=== PATIENT | female | born 1965 | race Caucasian/White ===

== ENCOUNTER → 2017-04-17 | Outpatient (CLI) | payer MEDICARE, OTHER ==
[~2017-04-17] MED LIST: ASPI81CH PO; ATOR40TA PO; Ativan1 MG PO; BASAGLAR K100 UNIT/1 SC; CEPH500 PO; CHOL10002 PO; CILO100 PO; CLOP75 PO; DOXY100T53 PO; ERGO50000 PO; FURO20 PO; GABA300 PO; HYDACE5 PO; Hydrocodone-Ap1 EA23 PO; IBUP600 PO; INSU100I6 SC; INSULANPEN SC; Isosorbide Mono30 MG PO; LEVEMIR FL100 UNIT/1 SC; LEVFLO500 PO; LEVOTHYROXINE PO; LEVSOD100 PO; LOSA25 PO; LOSA50 PO; LOSARTAN-HCTZ1 EAC1 PO; Lantus100 UNIT/1 SQ; Lipofen150 MG PO; MAGCHL64ER PO; METF500C PO; METO25ER PO; MULVITMIND PO; NITR.4SL SL; NOVOFINE SC; Norco 10-325 T1 EACH PO; OXYACE5T PO; OXYC5 PO; PROC10 PO; Percocet 5-3251 EACH PO; SIMV10 PO; TERB24TC TOP; TRIBENZOR 20-51 EACH PO; VALACYCLOVIR1000 MG PO; Zofran Odt4 MG PO; [UNRECOGNIZED DRUG - OTHER] PO
== END ==
LOC: LAB 11:45
DX: L30.9 Dermatitis, unspecified (principal)
CPT/HCPCS: 87102; 87106; 87220

== ENCOUNTER 2017-04-20 14:34 | Observation (INO) | payer MEDICARE, OTHER ==
[~2017-04-20] VITALS: Ht 170.2 cm; Wt 108.4 kg
[~2017-04-20 14:34] MED LIST changes: -ASPI81CH PO; -ATOR40TA PO; -BASAGLAR K100 UNIT/1 SC; -CHOL10002 PO; -CILO100 PO; -CLOP75 PO; -DOXY100T53 PO; -FURO20 PO; -GABA300 PO; -Isosorbide Mono30 MG PO; -LEVEMIR FL100 UNIT/1 SC; -LEVFLO500 PO; -LOSA25 PO; -LOSA50 PO; -LOSARTAN-HCTZ1 EAC1 PO; -METO25ER PO; -NITR.4SL SL; -OXYC5 PO
[2017-04-20 15:13] LABS: BASOPHILS ABSOLUTE AUTO 0.04 K/mm3 (0.00-0.23); BASOPHILS PERCENT AUTO 0 % (0-2); EOSINOPHILS ABSOLUTE AUTO 0.22 K/mm3 (0.00-0.68); EOSINOPHILS PERCENT AUTO 2 % (0-6); Hematocrit 39.9 % (33.0-51.0); Hemoglobin 13.6 g/dL (11.5-16.0); IMMATURE GRAN ABSOLUTE AUTO 0.07 K/mm3 (0.00-0.10); IMMATURE GRAN PERCENT AUTO 1 % (0-1); LYMPHOCYTES ABSOLUTE AUTO 2.82 K/mm3 (0.84-5.20); LYMPHOCYTES PERCENT AUTO 22 % (21-46); MONOCYTES ABSOLUTE AUTO 0.52 K/mm3 (0.16-1.47); MONOCYTES PERCENT AUTO 4 % (4-13); Mean Corpuscular HGB 31.6 pg (26.0-34.0); Mean Corpuscular HGB Conc 34.1 g/dL (31.5-36.5); Mean Corpuscular Volume 93 fL (80-100); Mean Platelet Volume 10.1 fL (9.1-12.4); NEUTROPHILS ABSOLUTE AUTO 9.37 K/mm3 (1.96-9.15); NEUTROPHILS PERCENT AUTO 72 % (41-73); Platelet Count 308 K/mm3 (150-400); RDW Coefficient Variation 13.8 % (11.7-14.2); Red Blood Cell Count 4.31 M/mm3 (3.80-5.20); White Blood Cell Count 13.04 K/mm3 (4.00-11.30)
[2017-04-20 17:35] LABS: Alanine Aminotransfer (ALT/SGP 26 U/L (12-78); Albumin, Blood 3.2 g/dL (3.4-5.0); Albumin/Globulin Ratio 0.7 (0.8-1.8); Alk Phos 104 U/L (50-136); Anion Gap 9 mmol/L (6-16); Aspartate Aminotrans (AST/SGOT 17 U/L (12-37); Bilirubin, Total 0.3 mg/dL (0.1-1.0); Blood Urea Nitrogen 25 mg/dL (8-24); Bun/Creatinine Ratio 31.2 (12.0-20.0); CO2, Blood 21 mmol/L (21-32); Calcium, Blood 9.5 mg/dL (8.5-10.1); Chloride, Blood 100 mmol/L (98-108); Globulin, Blood 4.3 g/dL (2.2-4.0); Glomerular Filtration Rate >60 (60-); Glucose, Blood 332 mg/dL (70-99); Sodium, Blood 130 mmol/L (136-145); Total Protein, Blood 7.5 g/dL (6.4-8.2)
[2017-04-20] MEDS ORDERED: LOSA25 PO (19:56)
[2017-04-20] MEDS ORDERED: ASPI81CH PO (19:56)
[2017-04-20] MEDS ORDERED: GABA300 PO (22:57)
[2017-04-21 05:12] LABS: BASOPHILS ABSOLUTE AUTO 0.03 K/mm3 (0.00-0.23); BASOPHILS PERCENT AUTO 0 % (0-2); EOSINOPHILS ABSOLUTE AUTO 0.22 K/mm3 (0.00-0.68); EOSINOPHILS PERCENT AUTO 2 % (0-6); Hematocrit 34.3 % (33.0-51.0); Hemoglobin 11.1 g/dL (11.5-16.0); IMMATURE GRAN ABSOLUTE AUTO 0.03 K/mm3 (0.00-0.10); IMMATURE GRAN PERCENT AUTO 0 % (0-1); LYMPHOCYTES ABSOLUTE AUTO 3.38 K/mm3 (0.84-5.20); LYMPHOCYTES PERCENT AUTO 37 % (21-46); MONOCYTES ABSOLUTE AUTO 0.46 K/mm3 (0.16-1.47); MONOCYTES PERCENT AUTO 5 % (4-13); Mean Corpuscular HGB 30.8 pg (26.0-34.0); Mean Corpuscular HGB Conc 32.4 g/dL (31.5-36.5); Mean Corpuscular Volume 95 fL (80-100); Mean Platelet Volume 10.2 fL (9.1-12.4); NEUTROPHILS ABSOLUTE AUTO 4.99 K/mm3 (1.96-9.15); NEUTROPHILS PERCENT AUTO 55 % (41-73); Platelet Count 249 K/mm3 (150-400); RDW Coefficient Variation 13.7 % (11.7-14.2); RDW Standard Deviation 48.4 fL (35.1-46.3); White Blood Cell Count 9.11 K/mm3 (4.00-11.30)
[2017-04-21 05:49] LABS: Anion Gap 13 mmol/L (6-16); Blood Urea Nitrogen 25 mg/dL (8-24); Bun/Creatinine Ratio 33.4 (12.0-20.0); CO2, Blood 25 mmol/L (21-32); Chloride, Blood 101 mmol/L (98-108); Creatinine, Blood 0.75 mg/dL (0.40-1.00); Glomerular Filtration Rate >60 (60-); Glucose, Blood 243 mg/dL (70-99); Potassium, Blood 4.2 mmol/L (3.5-5.5); Sodium, Blood 139 mmol/L (136-145)
[2017-04-21 06:00] LABS: Calcium, Blood 8.1 mg/dL (8.5-10.1)
[2017-04-21] MEDS ORDERED: LEVEMIR FL100 UNIT/1 SC (12:28)
[2017-04-21] MEDS ORDERED: OXYC5 PO (12:29)
[2017-07-04] MEDS ORDERED: LEVFLO500 PO (10:44)
[2017-07-28] MEDS ORDERED: BASAGLAR K100 UNIT/1 SC (15:02)
[2017-07-28] MEDS ORDERED: LOSARTAN-HCTZ1 EAC1 PO (15:05)
[2017-07-28] MEDS ORDERED: CHOL10002 PO (15:06)
[2017-07-28] MEDS ORDERED: METO25ER PO (15:07)
[2017-07-28] MEDS ORDERED: ATOR40TA PO (15:07)
[2017-07-28] MEDS ORDERED: NITR.4SL SL (15:07)
[2017-07-28] MEDS ORDERED: FURO20 PO (15:08)
[2017-07-28] MEDS ORDERED: CLOP75 PO (15:08)
[2017-07-28] MEDS ORDERED: Isosorbide Mono30 MG PO (15:10)
[2017-08-06] MEDS ORDERED: LOSA50 PO (13:53)
[2018-01-26] MEDS ORDERED: CHOL10002 PO (13:50)
[2018-01-26] MEDS ORDERED: CILO100 PO (13:50)
[2018-01-27] MEDS ORDERED: ASPI81CH PO (13:50)
== END 2017-04-21 15:06 | disposition home health service (06) ==
LOC: ER 14:34 → MEDS 14:35 → ER 20:28 → MEDS 20:28 → ENPENDDIS 04-21 11:39 → MEDS 04-21 15:06
PROVIDERS: Emergency Medicine; Internal Medicine
DX: E11.628 Type 2 diabetes mellitus with other skin complications (principal); E11.40 Type 2 diabetes mellitus with diabetic neuropathy, unspecified; L03.116 Cellulitis of left lower limb; E78.5 Hyperlipidemia, unspecified; I10 Essential (primary) hypertension; E03.9 Hypothyroidism, unspecified; E66.01 Morbid (severe) obesity due to excess calories; F17.200 Nicotine dependence, unspecified, uncomplicated; Z68.41 Body mass index [BMI] 40.0-44.9, adult; Z79.899 Other long term (current) drug therapy; Z79.4 Long term (current) use of insulin; Z79.82 Long term (current) use of aspirin; Z85.3 Personal history of malignant neoplasm of breast; Z90.13 Acquired absence of bilateral breasts and nipples; Z90.49 Acquired absence of other specified parts of digestive tract; Z98.890 Other specified postprocedural states
CPT/HCPCS: 36415; 73630; 80048; 80053; 82947; 83605; 84145; 85025; 85651; 86140; 87040; 96365; 96375; 96376; 99285; G0378; J1170; J1650; J1815; J2405; J2543; J3370; J7030; J7050

== ENCOUNTER → 2017-06-04 | Outpatient (CLI) | payer MEDICARE, OTHER ==
[~2017-06-04] MED LIST changes: +ASPI81CH PO; +ATOR40TA PO; +BASAGLAR K100 UNIT/1 SC; +CHOL10002 PO; +CILO100 PO; +CLOP75 PO; +DOXY100T53 PO; +FURO20 PO; +GABA300 PO; +Isosorbide Mono30 MG PO; +LEVEMIR FL100 UNIT/1 SC; +LEVFLO500 PO; +LOSA25 PO; +LOSA50 PO; +LOSARTAN-HCTZ1 EAC1 PO; +METO25ER PO; +NITR.4SL SL; +OXYC5 PO
== END | disposition home or self-care (01) ==
LOC: LAB 16:48
DX: E03.9 Hypothyroidism, unspecified (principal)
CPT/HCPCS: 84443

== ENCOUNTER 2017-06-15 20:43 | Emergency (ER) | payer MEDICARE, OTHER ==
[~2017-06-15] VITALS: Ht 170.2 cm; Wt 105.2 kg
[~2017-06-15 20:43] MED LIST changes: -ATOR40TA PO; -BASAGLAR K100 UNIT/1 SC; -CHOL10002 PO; -CILO100 PO; -CLOP75 PO; -DOXY100T53 PO; -FURO20 PO; -Isosorbide Mono30 MG PO; -LEVFLO500 PO; -LOSA50 PO; -LOSARTAN-HCTZ1 EAC1 PO; -METO25ER PO; -NITR.4SL SL
[2017-06-15 21:28] LABS: BASOPHILS ABSOLUTE AUTO 0.04 K/mm3 (0.00-0.23); BASOPHILS PERCENT AUTO 0 % (0-2); EOSINOPHILS ABSOLUTE AUTO 0.21 K/mm3 (0.00-0.68); EOSINOPHILS PERCENT AUTO 2 % (0-6); Hematocrit 40.4 % (33.0-51.0); Hemoglobin 13.3 g/dL (11.5-16.0); IMMATURE GRAN ABSOLUTE AUTO 0.02 K/mm3 (0.00-0.10); IMMATURE GRAN PERCENT AUTO 0 % (0-1); LYMPHOCYTES PERCENT AUTO 31 % (21-46); MONOCYTES ABSOLUTE AUTO 0.41 K/mm3 (0.16-1.47); MONOCYTES PERCENT AUTO 4 % (4-13); Mean Corpuscular HGB 29.8 pg (26.0-34.0); Mean Corpuscular HGB Conc 32.9 g/dL (31.5-36.5); Mean Corpuscular Volume 91 fL (80-100); NEUTROPHILS ABSOLUTE AUTO 6.31 K/mm3 (1.96-9.15); NEUTROPHILS PERCENT AUTO 62 % (41-73); Platelet Count 334 K/mm3 (150-400); RDW Coefficient Variation 14.1 % (11.7-14.2); RDW Standard Deviation 46.5 fL (35.1-46.3); Red Blood Cell Count 4.46 M/mm3 (3.80-5.20); White Blood Cell Count 10.19 K/mm3 (4.00-11.30)
[2017-06-15 21:45] LABS: Alanine Aminotransfer (ALT/SGP 22 U/L (12-78); Albumin, Blood 3.3 g/dL (3.4-5.0); Albumin/Globulin Ratio 0.7 (0.8-1.8); Alk Phos 91 U/L (50-136); Anion Gap 7 mmol/L (6-16); Aspartate Aminotrans (AST/SGOT 20 U/L (12-37); Bilirubin, Total 0.3 mg/dL (0.1-1.0); Blood Urea Nitrogen 33 mg/dL (8-24); CO2, Blood 27 mmol/L (21-32); Calcium, Blood 9.1 mg/dL (8.5-10.1); Chloride, Blood 102 mmol/L (98-108); Creatinine, Blood 0.81 mg/dL (0.40-1.00); Globulin, Blood 4.5 g/dL (2.2-4.0); Glomerular Filtration Rate >60 (60-); Glucose, Blood 295 mg/dL (70-99); Potassium, Blood 4.6 mmol/L (3.5-5.5); Sodium, Blood 136 mmol/L (136-145); Total Protein, Blood 7.8 g/dL (6.4-8.2)
[2017-06-15] MEDS ORDERED: CEPH500 PO (22:12)
[2017-06-15] MEDS ORDERED: DOXY100T53 PO (22:12)
[2017-07-04] MEDS ORDERED: LEVFLO500 PO (10:44)
[2017-07-28] MEDS ORDERED: BASAGLAR K100 UNIT/1 SC (15:02)
[2017-07-28] MEDS ORDERED: LOSARTAN-HCTZ1 EAC1 PO (15:05)
[2017-07-28] MEDS ORDERED: CHOL10002 PO (15:06)
[2017-07-28] MEDS ORDERED: ATOR40TA PO (15:07)
[2017-07-28] MEDS ORDERED: METO25ER PO (15:07)
[2017-07-28] MEDS ORDERED: NITR.4SL SL (15:07)
[2017-07-28] MEDS ORDERED: CLOP75 PO (15:08)
[2017-07-28] MEDS ORDERED: FURO20 PO (15:08)
[2017-07-28] MEDS ORDERED: Isosorbide Mono30 MG PO (15:10)
[2017-08-06] MEDS ORDERED: LOSA50 PO (13:53)
[2018-01-26] MEDS ORDERED: CILO100 PO (13:50)
[2018-01-26] MEDS ORDERED: CHOL10002 PO (13:50)
[2018-01-27] MEDS ORDERED: ASPI81CH PO (13:50)
== END 2017-06-15 22:46 | disposition home or self-care (01) ==
LOC: ER 20:43
PROVIDERS: Physician Assistant
DX: E11.621 Type 2 diabetes mellitus with foot ulcer (principal); I10 Essential (primary) hypertension; Z79.4 Long term (current) use of insulin; Z79.82 Long term (current) use of aspirin; Z79.899 Other long term (current) drug therapy; Z87.891 Personal history of nicotine dependence
CPT/HCPCS: 36415; 73630; 80053; 85025; 99284

== ENCOUNTER → 2017-06-16 | Outpatient (CLI) | payer MEDICARE, OTHER ==
[~2017-06-16] MED LIST changes: +ATOR40TA PO; +BASAGLAR K100 UNIT/1 SC; +CHOL10002 PO; +CILO100 PO; +CLOP75 PO; +DOXY100T53 PO; +FURO20 PO; +Isosorbide Mono30 MG PO; +LEVFLO500 PO; +LOSA50 PO; +LOSARTAN-HCTZ1 EAC1 PO; +METO25ER PO; +NITR.4SL SL
== END ==
LOC: LAB 14:40
DX: L02.612 Cutaneous abscess of left foot (principal)
CPT/HCPCS: 87070; 87077; 87147; 87186; 87205

== ENCOUNTER 2017-06-18 13:40 | Day surgery (SDC) | payer MEDICARE, OTHER ==
[~2017-06-18] VITALS: Ht 174 cm; Wt 108.0 kg
[~2017-06-18 13:40] MED LIST changes: -ATOR40TA PO; -BASAGLAR K100 UNIT/1 SC; -CHOL10002 PO; -CILO100 PO; -CLOP75 PO; -FURO20 PO; -Isosorbide Mono30 MG PO; -LEVFLO500 PO; -LOSA50 PO; -LOSARTAN-HCTZ1 EAC1 PO; -METO25ER PO; -NITR.4SL SL
[2017-07-04] MEDS ORDERED: LEVFLO500 PO (10:44)
[2017-07-28] MEDS ORDERED: BASAGLAR K100 UNIT/1 SC (15:02)
[2017-07-28] MEDS ORDERED: LOSARTAN-HCTZ1 EAC1 PO (15:05)
[2017-07-28] MEDS ORDERED: CHOL10002 PO (15:06)
[2017-07-28] MEDS ORDERED: NITR.4SL SL (15:07)
[2017-07-28] MEDS ORDERED: METO25ER PO (15:07)
[2017-07-28] MEDS ORDERED: ATOR40TA PO (15:07)
[2017-07-28] MEDS ORDERED: CLOP75 PO (15:08)
[2017-07-28] MEDS ORDERED: FURO20 PO (15:08)
[2017-07-28] MEDS ORDERED: Isosorbide Mono30 MG PO (15:10)
[2017-08-06] MEDS ORDERED: LOSA50 PO (13:53)
[2018-01-26] MEDS ORDERED: CILO100 PO (13:50)
[2018-01-26] MEDS ORDERED: CHOL10002 PO (13:50)
[2018-01-27] MEDS ORDERED: ASPI81CH PO (13:50)
== END 2017-06-18 16:00 | disposition home or self-care (01) ==
LOC: ATC 13:40
DX: L02.612 Cutaneous abscess of left foot (principal); E11.21 Type 2 diabetes mellitus with diabetic nephropathy; F17.210 Nicotine dependence, cigarettes, uncomplicated; Z79.84 Long term (current) use of oral hypoglycemic drugs; Z79.899 Other long term (current) drug therapy
CPT/HCPCS: 99211; J3370; J7050

== ENCOUNTER 2017-07-29 02:49 | Day surgery (SDC) | payer MEDICARE, OTHER ==
[~2017-07-29] VITALS: Ht 172.7 cm; Wt 108.0 kg
[~2017-07-29 02:49] MED LIST changes: +ATOR40TA PO; +BASAGLAR K100 UNIT/1 SC; +CHOL10002 PO; +CLOP75 PO; +FURO20 PO; +Isosorbide Mono30 MG PO; +LEVFLO500 PO; +LOSARTAN-HCTZ1 EAC1 PO; +METO25ER PO; +NITR.4SL SL
[2017-08-06] MEDS ORDERED: LOSA50 PO (13:53)
== END 2017-07-29 22:47 | disposition home or self-care (01) ==
LOC: MHTC 02:49
DX: Z53.8 Procedure and treatment not carried out for other reasons (principal); R19.7 Diarrhea, unspecified
CPT/HCPCS: 93005; 93010; J1644; J2060; J7030; J7040

== ENCOUNTER 2018-04-01 13:22 | Inpatient (IN) | payer MEDICARE, OTHER ==
[~2018-04-01] VITALS: Ht 172.7 cm; Wt 120.7 kg
[~2018-04-01 13:22] MED LIST changes: -ATOR40TA PO; -CLOP75 PO; -GABA300 PO; -LEVSOD100 PO; +LOSA50 PO; -METF500C PO; -METO25ER PO; +METO50ER PO; -NITR.4SL SL
[2018-04-01 14:06] LABS: BASOPHILS ABSOLUTE AUTO 0.04 K/mm3 (0.00-0.23); BASOPHILS PERCENT AUTO 0 % (0-2); EOSINOPHILS ABSOLUTE AUTO 0.17 K/mm3 (0.00-0.68); EOSINOPHILS PERCENT AUTO 2 % (0-6); Hematocrit 31.9 % (33.0-51.0); Hemoglobin 9.5 g/dL (11.5-16.0); IMMATURE GRAN ABSOLUTE AUTO 0.06 K/mm3 (0.00-0.10); IMMATURE GRAN PERCENT AUTO 1 % (0-1); LYMPHOCYTES ABSOLUTE AUTO 1.37 K/mm3 (0.84-5.20); LYMPHOCYTES PERCENT AUTO 13 % (21-46); MONOCYTES ABSOLUTE AUTO 0.53 K/mm3 (0.16-1.47); MONOCYTES PERCENT AUTO 5 % (4-13); Mean Corpuscular HGB 29.3 pg (26.0-34.0); Mean Corpuscular HGB Conc 29.8 g/dL (31.5-36.5); Mean Corpuscular Volume 99 fL (80-100); Mean Platelet Volume 9.6 fL (9.1-12.4); NEUTROPHILS PERCENT AUTO 79 % (41-73); Platelet Count 434 K/mm3 (150-400); RDW Coefficient Variation 16.8 % (11.7-14.2); RDW Standard Deviation 60.6 fL (35.1-46.3); Red Blood Cell Count 3.24 M/mm3 (3.80-5.20); White Blood Cell Count 10.57 K/mm3 (4.00-11.30)
[2018-04-01 14:27] LABS: International Normalized Ratio 1.01; Prothrombin Time Results 10.4 Sec (9.7-11.5)
[2018-04-01 14:28] LABS: Troponin I 0.171 ng/mL (0.000-0.040)
[2018-04-01 14:35] LABS: Albumin, Blood 2.9 g/dL (3.4-5.0); Albumin/Globulin Ratio 0.7 (0.8-1.8); Bilirubin, Total 0.2 mg/dL (0.1-1.0); Bun/Creatinine Ratio 41.7 (12.0-20.0); Calcium, Blood 8.8 mg/dL (8.5-10.1); Creatinine, Blood 1.15 mg/dL (0.40-1.00); Globulin, Blood 4.4 g/dL (2.2-4.0); Potassium, Blood 6.2 mmol/L (3.5-5.5); Total Protein, Blood 7.3 g/dL (6.4-8.2)
[2018-04-01] MEDS ORDERED: [UNRECOGNIZED DRUG - CODE] PO (17:03)
[2018-04-01] MEDS ORDERED: [UNRECOGNIZED DRUG - CODE] PO (17:06)
[2018-04-01] MEDS ORDERED: [UNRECOGNIZED DRUG - CODE] PO (17:07)
[2018-04-01 21:03] LABS: Bun/Creatinine Ratio 48.1 (12.0-20.0); Calcium, Blood 8.8 mg/dL (8.5-10.1); Creatinine, Blood 1.08 mg/dL (0.40-1.00); Potassium, Blood 5.4 mmol/L (3.5-5.5)
[2018-04-02 04:27] LABS: Anion Gap 4 mmol/L (6-16); Blood Urea Nitrogen 52 mg/dL (8-24); Bun/Creatinine Ratio 53.8 (12.0-20.0); CO2, Blood 27 mmol/L (21-32); Calcium, Blood 8.8 mg/dL (8.5-10.1); Chloride, Blood 102 mmol/L (98-108); Creatinine, Blood 0.97 mg/dL (0.40-1.00); Glomerular Filtration Rate >60 (60-); Glucose, Blood 212 mg/dL (70-99); Potassium, Blood 5.6 mmol/L (3.5-5.5); Sodium, Blood 133 mmol/L (136-145)
[2018-04-03 04:23] LABS: BASOPHILS ABSOLUTE AUTO 0.05 K/mm3 (0.00-0.23); BASOPHILS PERCENT AUTO 1 % (0-2); EOSINOPHILS ABSOLUTE AUTO 0.26 K/mm3 (0.00-0.68); EOSINOPHILS PERCENT AUTO 4 % (0-6); Hematocrit 34.1 % (33.0-51.0); Hemoglobin 10.2 g/dL (11.5-16.0); IMMATURE GRAN ABSOLUTE AUTO 0.03 K/mm3 (0.00-0.10); IMMATURE GRAN PERCENT AUTO 0 % (0-1); LYMPHOCYTES ABSOLUTE AUTO 1.34 K/mm3 (0.84-5.20); LYMPHOCYTES PERCENT AUTO 18 % (21-46); MONOCYTES PERCENT AUTO 7 % (4-13); Mean Corpuscular HGB Conc 29.9 g/dL (31.5-36.5); Mean Corpuscular Volume 97 fL (80-100); Mean Platelet Volume 9.6 fL (9.1-12.4); NEUTROPHILS ABSOLUTE AUTO 5.29 K/mm3 (1.96-9.15); NEUTROPHILS PERCENT AUTO 71 % (41-73); Platelet Count 432 K/mm3 (150-400); RDW Coefficient Variation 16.7 % (11.7-14.2); RDW Standard Deviation 58.9 fL (35.1-46.3); Red Blood Cell Count 3.52 M/mm3 (3.80-5.20); White Blood Cell Count 7.47 K/mm3 (4.00-11.30)
[2018-04-03 04:36] LABS: Bun/Creatinine Ratio 47.3 (12.0-20.0); Creatinine, Blood 1.12 mg/dL (0.40-1.00); Potassium, Blood 5.7 mmol/L (3.5-5.5)
[2018-04-04 04:45] LABS: Anion Gap 6 mmol/L (6-16); Blood Urea Nitrogen 49 mg/dL (8-24); Bun/Creatinine Ratio 50.2 (12.0-20.0); CO2, Blood 30 mmol/L (21-32); Calcium, Blood 9.3 mg/dL (8.5-10.1); Chloride, Blood 100 mmol/L (98-108); Creatinine, Blood 0.98 mg/dL (0.40-1.00); Glomerular Filtration Rate >60 (60-); Glucose, Blood 175 mg/dL (70-99); Potassium, Blood 4.7 mmol/L (3.5-5.5); Sodium, Blood 136 mmol/L (136-145)
[2018-04-05 04:41] LABS: Anion Gap 7 mmol/L (6-16); Blood Urea Nitrogen 40 mg/dL (8-24); Bun/Creatinine Ratio 44.3 (12.0-20.0); CO2, Blood 32 mmol/L (21-32); Chloride, Blood 98 mmol/L (98-108); Glomerular Filtration Rate >60 (60-); Glucose, Blood 191 mg/dL (70-99); Potassium, Blood 4.4 mmol/L (3.5-5.5); Sodium, Blood 137 mmol/L (136-145)
[2018-04-06 05:48] LABS: Anion Gap 5 mmol/L (6-16); Blood Urea Nitrogen 29 mg/dL (8-24); Bun/Creatinine Ratio 37.9 (12.0-20.0); CO2, Blood 34 mmol/L (21-32); Calcium, Blood 8.8 mg/dL (8.5-10.1); Chloride, Blood 98 mmol/L (98-108); Creatinine, Blood 0.77 mg/dL (0.40-1.00); Glomerular Filtration Rate >60 (60-); Glucose, Blood 181 mg/dL (70-99); Potassium, Blood 4.2 mmol/L (3.5-5.5); Sodium, Blood 137 mmol/L (136-145)
[2018-04-08 06:43] LABS: Anion Gap 4 mmol/L (6-16); Blood Urea Nitrogen 29 mg/dL (8-24); Bun/Creatinine Ratio 32.5 (12.0-20.0); CO2, Blood 35 mmol/L (21-32); Calcium, Blood 8.7 mg/dL (8.5-10.1); Chloride, Blood 96 mmol/L (98-108); Creatinine, Blood 0.89 mg/dL (0.40-1.00); Glomerular Filtration Rate >60 (60-); Glucose, Blood 140 mg/dL (70-99); Potassium, Blood 4.7 mmol/L (3.5-5.5); Sodium, Blood 135 mmol/L (136-145)
[2018-04-09 05:41] LABS: Anion Gap 6 mmol/L (6-16); Blood Urea Nitrogen 29 mg/dL (8-24); Bun/Creatinine Ratio 35.8 (12.0-20.0); CO2, Blood 36 mmol/L (21-32); Calcium, Blood 8.8 mg/dL (8.5-10.1); Chloride, Blood 95 mmol/L (98-108); Creatinine, Blood 0.81 mg/dL (0.40-1.00); Glomerular Filtration Rate >60 (60-); Glucose, Blood 187 mg/dL (70-99); Potassium, Blood 4.4 mmol/L (3.5-5.5); Sodium, Blood 137 mmol/L (136-145)
[2018-04-09] MEDS ORDERED: HUMALOG KW200 UNIT/1 SC (14:28)
== END 2018-04-09 14:30 | disposition home health service (06) | DRG 292 ==
LOC: ER 13:22 → PCU 16:59 → MEDS 04-06 18:25 → ENPENDDIS 04-09 10:00 → MEDS 04-09 14:30
PROVIDERS: Emergency Medicine; Internal Medicine; Physician Assistant; ADMIT Hospitalist
DX: I11.0 Hypertensive heart disease with heart failure (principal); Z68.41 Body mass index [BMI] 40.0-44.9, adult; L03.116 Cellulitis of left lower limb; E66.01 Morbid (severe) obesity due to excess calories; I50.33 Acute on chronic diastolic (congestive) heart failure; I25.10 Atherosclerotic heart disease of native coronary artery without angina pectoris; E03.9 Hypothyroidism, unspecified; E87.5 Hyperkalemia; E11.51 Type 2 diabetes mellitus with diabetic peripheral angiopathy without gangrene; E78.5 Hyperlipidemia, unspecified; Z23 Encounter for immunization; Z95.1 Presence of aortocoronary bypass graft; Z91.14 Patient's other noncompliance with medication regimen; Z79.4 Long term (current) use of insulin; Z88.1 Allergy status to other antibiotic agents; Z87.891 Personal history of nicotine dependence; Z79.84 Long term (current) use of oral hypoglycemic drugs; Z79.02 Long term (current) use of antithrombotics/antiplatelets; Z79.82 Long term (current) use of aspirin; Z79.899 Other long term (current) drug therapy
CPT/HCPCS: 36415; 71046; 80048; 80053; 82947; 83880; 84484; 85025; 85610; 87081; 90686; 93005; 93010; 93971; 94761; 94762; 96374; 97110; 97116; 97162; 97530; 99285-25; G0008; J0690; J1650; J1940

== ENCOUNTER 2018-05-05 10:41 | Inpatient (IN) | payer MEDICARE, OTHER ==
[~2018-05-05] VITALS: Ht 172.7 cm; Wt 111.6 kg
[~2018-05-05 10:41] MED LIST changes: +HUMALOG KW200 UNIT/1 SC; +[UNRECOGNIZED DRUG - CODE] PO; +[UNRECOGNIZED DRUG - CODE] PO; +[UNRECOGNIZED DRUG - CODE] PO
[2018-05-05 11:13] LABS: BASOPHILS ABSOLUTE AUTO 0.04 K/mm3 (0.00-0.23); BASOPHILS PERCENT AUTO 0 % (0-2); EOSINOPHILS ABSOLUTE AUTO 0.11 K/mm3 (0.00-0.68); EOSINOPHILS PERCENT AUTO 1 % (0-6); Hematocrit 34.7 % (33.0-51.0); Hemoglobin 10.2 g/dL (11.5-16.0); IMMATURE GRAN ABSOLUTE AUTO 0.03 K/mm3 (0.00-0.10); IMMATURE GRAN PERCENT AUTO 0 % (0-1); LYMPHOCYTES ABSOLUTE AUTO 1.46 K/mm3 (0.84-5.20); LYMPHOCYTES PERCENT AUTO 15 % (21-46); MONOCYTES ABSOLUTE AUTO 0.48 K/mm3 (0.16-1.47); MONOCYTES PERCENT AUTO 5 % (4-13); Mean Corpuscular HGB Conc 29.4 g/dL (31.5-36.5); Mean Corpuscular Volume 92 fL (80-100); Mean Platelet Volume 9.8 fL (9.1-12.4); NEUTROPHILS ABSOLUTE AUTO 7.95 K/mm3 (1.96-9.15); NEUTROPHILS PERCENT AUTO 79 % (41-73); NRBC ABSOLUTE 0.02 K/mm3 (0.00-0.02); NRBC Auto 0.2 /100 WBC (0.0-0.2); Platelet Count 397 K/mm3 (150-400); RDW Standard Deviation 53.5 fL (35.1-46.3); Red Blood Cell Count 3.78 M/mm3 (3.80-5.20); White Blood Cell Count 10.07 K/mm3 (4.00-11.30)
[2018-05-05 11:22] LABS: PCO2 Arterial 43.5 mmHg (35-45); PO2 Arterial 133 mmHg (80-100); pH Blood Arterial 7.42 (7.35-7.45)
[2018-05-05 11:37] LABS: Alanine Aminotransfer (ALT/SGP 12 U/L (12-78); Albumin, Blood 3.3 g/dL (3.4-5.0); Albumin/Globulin Ratio 0.7 (0.8-1.8); Alk Phos 103 U/L (50-136); Anion Gap 8 mmol/L (6-16); Aspartate Aminotrans (AST/SGOT 15 U/L (12-37); Bilirubin, Total 0.6 mg/dL (0.1-1.0); Blood Urea Nitrogen 42 mg/dL (8-24); Bun/Creatinine Ratio 48.3 (12.0-20.0); CO2, Blood 27 mmol/L (21-32); Calcium, Blood 9.6 mg/dL (8.5-10.1); Chloride, Blood 101 mmol/L (98-108); Creatinine, Blood 0.87 mg/dL (0.40-1.00); Globulin, Blood 4.7 g/dL (2.2-4.0); Glomerular Filtration Rate >60 (60-); Glucose, Blood 310 mg/dL (70-99); Potassium, Blood 5.5 mmol/L (3.5-5.5); Sodium, Blood 136 mmol/L (136-145); Troponin I 0.056 ng/mL (0.000-0.040)
[2018-05-05] MEDS ORDERED: **INCOMPLETE MED REC (13:11)
[2018-05-05] MEDS ORDERED: ASPI81CH PO (13:41)
[2018-05-05] MEDS ORDERED: ATOR40TA PO (13:42)
[2018-05-05] MEDS ORDERED: Cilostazol50 MG PO (13:43)
[2018-05-05] MEDS ORDERED: CLOP75 PO (13:44)
[2018-05-05] MEDS ORDERED: GABA300 PO (13:45)
[2018-05-05] MEDS ORDERED: LEVSOD100 PO (13:46)
[2018-05-05] MEDS ORDERED: LOSARTAN POTAS100 MG PO (13:50)
[2018-05-05] MEDS ORDERED: METF500C PO (13:51)
[2018-05-05] MEDS ORDERED: NITR.4SL SL (13:52)
[2018-05-05] MEDS ORDERED: TORSE20 PO (13:53)
[2018-05-05] MEDS ORDERED: Prinivil10 MG PO (14:24)
[2018-05-05] MEDS ORDERED: METO50 PO (14:30)
[2018-05-05] MEDS ORDERED: INSULANPEN SC (14:37)
[2018-05-05] MEDS ORDERED: Mupirocin22 GM TOP (14:38)
[2018-05-05] MEDS ORDERED: HYDR1TAB94 PO (16:57)
--- NOTE | 2018-05-05 17:35 | NUR ---
PT ADMITTED TO ICU14 VIA STRETCHER ON BIPAP. PT SETTINGS DEC PER RT NOTED. PT DENIES PAIN EXCEPT OF FEET, SEE EMAR. PT SATS, VS, RR, NOTED AND IMPROVING AT TIME OF ADMIT. WOUND PHOTOS TAKEN. PT HAS R WRIST 20G IV. WILL FOLLOW.
--- NOTE | 2018-05-05 19:28 | NUR ---
1830 PT WAS BLADDER SCANNED AFTER ARRIVAL TO ICU AND FOUND TO BE EMPTY. PT HAS BEEN WIMPERING AND WANTING BIPAP OFF BUT PT WAS OFFERED BED PA AND WAS ONLY ON FOR 10-15 SECONDS AND THEN REQUESTED OFF. PT VS NOTED. PT REMAINS ON BIPAP AT THIS TIME DUE TO VERY DEMINISHED LUNGS AND QUITE ELEVATED BNP, WILL REPORT TO NOC SHIFT.
[2018-05-05 20:15] LABS: Source, Urine Catheter
[2018-05-05 20:17] LABS: Bilirubin, Urine Neg (Neg); Blood, Urine Neg (Neg); Glucose Qualitative, Urine Neg (Neg); Ketones, Urine Neg (Neg); Leukocyte Esterase, Urine Neg (Neg); Nitrite, Urine Neg (Neg); Protein, Urine 3+ (Neg); Urobilinogen, Urine NORM (Normal)
[2018-05-05 20:38] LABS: Appearance, Urine Clear (Clear); Color, Urine Yellow (P-Yellow)
[2018-05-05 20:40] LABS: Amorphous Light (0-Heavy); Bacteria Rare /hpf; Red Blood Cells, Urine Not Seen /hpf (0-2); Squamous Epithelial Cells Rare /hpf (Few); White Blood Cells, Urine Rare /hpf (0-5)
--- NOTE | 2018-05-05 21:39 | NUR ---
START OF SHIFT: PT C/O LOWER ABD PAIN AT START OF SHIFT. DAY REPORT STATING THAT PT C/O HAVING URGE TO VOID BUT COULDN'T X2. VSS. SANCHEZ CATH PLACED WITH APPRX 1200cc OUT THUS FAR. PT STATED RELIEF SHORTLY AFTER INSERTION. PT REQUESTED AND GIVEN SNACK. PT CURRENTLY 98% SATS ON N/C. PT REQUESTED BREATH OFF BIPAP UNTIL READY FOR SLEEP. WILL CONTINUE TO MONITOR.
--- NOTE | 2018-05-05 22:12 | NUR ---
PT REFUSED BIPAP: THIS RN WENT TO BEDSIDE AT [address] BIP[address] BIPAP ON BUT PT BECAME ANXIOUS AND WANTED IT OFF. PT CURRENTLY REMAINING ON N/C 2 L WITH SATS 96-99%. WILL CONTINUE TO MONITOR.
--- NOTE | 2018-05-06 00:45 | NUR ---
DESAT: PT DESAT TO 79%. UPON ENTERING ROOM PT SLEEPING WITH POSSIBLE APNEA. BIPAP PLACED. SATS UP TO 97%.
[2018-05-06 04:00] LABS: Bun/Creatinine Ratio 33.8 (12.0-20.0); Calcium, Blood 8.9 mg/dL (8.5-10.1); Creatinine, Blood 1.33 mg/dL (0.40-1.00); Potassium, Blood 4.9 mmol/L (3.5-5.5)
--- NOTE | 2018-05-06 04:04 | NUR ---
TONIA RN TO BEDSIDE FOR PT DESAT TO 83% WHILE ON N/C 2L; PT WITH APNEA. PT PLACED BACK ON BIPAP. CURRENT SATS 96%. WILL CONTINUE TO MONITOR.
--- NOTE | 2018-05-06 08:50 | NUR ---
BEGINNING OF SHIFT Assumed care a 0700. Report recieved from Senia KHAN. Pt on BiPAP at time of report, tolerating well. Pt taken off BiPAP. Required 2 LPM NC to maintain O2 sats above 90%. Will continue to reassess. Pt is currently medical floor status. Does not require continuous heart monitoring or telemetry per Dr Luis. Per Dr Luis, Dr Rea will be providing care for the pt's wound. Bed in lowest position. Call light in reach. Pt denies need at this time.
--- NOTE | 2018-05-06 10:12 | NUR ---
DR José MCGUIRE IN TO SEE PT Dr José Mcguire in to see pt. States plan for nonsurgical management at this time. Previous dressing applied. Wet to dry dressing applied. This RN stated bactroban was being used for dressing changes. He stated this was not necessary. Dressing to be changed daily.
--- NOTE | 2018-05-06 17:35 | NUR ---
SHIFT SUMMARY Dr Rea and WAQAR Montemayor in to see pt. Dressing removed. Redressed by Joellen KHAN. No additional changes. No episodes of desaturation noted. Will continue to closely monitor until care handoff and bedside report with oncoming RN.
[2018-05-07 04:37] LABS: Bun/Creatinine Ratio 40.2 (12.0-20.0); Calcium, Blood 8.8 mg/dL (8.5-10.1); Creatinine, Blood 1.27 mg/dL (0.40-1.00); Potassium, Blood 5.1 mmol/L (3.5-5.5)
--- NOTE | 2018-05-07 06:46 | NUR ---
PT AWAKENS ON OWN THIS AM. PT PLEASANT, A+O. TURNED ON TV. STILL HAS N/C ON 2L. PT SMILING AND STATES THAT SHE FEELS BETTER AFTER SLEEPING ALL NIGHT WITH OXYGEN. WILL PASS ON DAY RN.
--- NOTE | 2018-05-07 07:30 | NUR ---
ASSUMED CARE OF PATIENT; SEE ASSESSMENT CHARTING FOR DETAILS. PATIENT SLEEPING BUT ROUSES EASILY AND IS ORIENTED AND COOPERATIVE; NO ACUTE DISCOMFORT; A LITTLE RESTLESS DURING SLEEP BUT HAS NEUROPATHY DISCOMFORT. C/O HUNGER; CBG CHECKED AND WAS 133; NO COVERAGE INDICATED. LUNGS DECREASED T/O; NO WHEEZES NOTED BUT SOME RALES HEARD IN RLL. RECEIVING 40MG IV LASIX BID FOR CHF SX'S. MONITOR REMAINS NSR WITH GOOD RATE AND VSS.
--- NOTE | 2018-05-07 07:45 | NUR ---
DR. HARRELL HERE; PLACED PATIENT ON 1200ML FLUID RESTRICTION; REMAINS ON ADA DIET; GOOD APPETITE. WILL GIVE ICE CHIPS TO HELP REDUCE FLUID INTAKE.
--- NOTE | 2018-05-07 09:30 | NUR ---
DR. AIDE MCGUIRE, GENERAL SURGEON, HERE TO ASSESS EXTREM. WOUND AND STERNAL WOUND; REPACKED AND CLEANED BOTH SITES AND SECURED TIHE TAPE. TO BE CHANGED DAILY (WET TO DRY/DRESSING). PUS CAME OUT OF STERNAL (PROXIMAL AREA) WOUND EARLIER FOR RN AND NOW FOR MD; REMAINS ON IVAB TX.
--- NOTE | 2018-05-07 11:45 | NUR ---
CBG 183; COVERED PER SLIDING SCALE COVERAGLE.
--- NOTE | 2018-05-07 16:35 | NUR ---
CBG 188; 3UNITS NOVOLOG PER SS COVERAGE.
--- NOTE | 2018-05-07 18:49 | NUR ---
SUMMARY: SLEEPING MORE THIS AFTERNOON. UP IN CHAIR SEVERAL TIMES T/O DAY WITH SBA. BATHED AND LINEN CHANGE EARLY AFTERNOON. NEW IV STARTE IN L WRIST REGION D/T SOME TENERNESS TO R WRIST SITE; NO SWELLING NOTED, HOWEVER AND BLOOD RETURN; WILL MAINTAIN FOR NOW. REMAINS ON FLUID RESTRICTION OF 1200ML; ICE CHIPS TO HELP CONTROL THIRST. GOOD U.O T/O SHIFT D/T DIURETIC TX. REMAINS ON 2L/NC; SOBOE.
--- NOTE | 2018-05-07 20:40 | NUR ---
ASSUMED CARE REPORT RECIEVED. PT IS LAYING IN BED RESTING QUIETLY. PT AROUSES TO VERBAL STIMULI. PT IS ALERT AND ORIENTED WHEN AWAKE. PT SLOW TO RESPOND TO SOME QUESTIONS AND MOANS WITH ANSWERS. PT STATES 8/10 LEG PAIN. PT MED PER EMAR. VITAL SIGNS STABLE. IV'S SALINE LOCKED. PT REPOSITIONS SELF IN BED FOR COMFORT. MIDLINE INCISION TO CHEST WITH DRESSING INTACT. WOUND TO LEFT INNER KNEE AREA WITH DRESSING INTACT. PT ON 2L O2 NC. WILL CONTINUE TO MONITOR.
[2018-05-08 04:42] LABS: Bun/Creatinine Ratio 46.8 (12.0-20.0); Calcium, Blood 9.1 mg/dL (8.5-10.1); Creatinine, Blood 1.09 mg/dL (0.40-1.00); Potassium, Blood 5.3 mmol/L (3.5-5.5)
--- NOTE | 2018-05-08 05:53 | NUR ---
SHIFT SUMMARY NO ACUTE CHANGES. PT HAS SLEPT OFF AND ON THROUGHOUT THE NIGHT. WHEN AWAKE PT IS ALERT AND ORIENTED AND MOANS WHEN TALKING. PT MED FOR PAIN ONCE AT BEGINNING OF THE SHIFT, AND HAS SINCE DENIED PAIN. PT HAS REPOSITIONED SELF IN BED INDEPENDENTLY. PT ON 2L O2 NC, VITAL SIGNS STABLE. IV SALINE LOCKED. SANCHEZ IN PLACE WITH GOOD URINE OUTPUT. WOUNDS REMAIN UNCHANGED. WILL CONTINUE TO MONITOR AND REPORT OFF TO ONCOMING RN.
--- NOTE | 2018-05-08 07:30 | NUR ---
ASSUMED CARE OF PATIENT; SEE ASSESSMENT CHARTING FOR DETAILS. PATIENT SLEEPING; ROUSES TO VERBAL STIMULI BUT BACK TO SLEEP WHEN NOT DISTURBED. OXYGEN AT 2L/MIN VIA NC; BIOX 97%. LUNGS DIMINISHED T/O. DENIES ACUTE DISCOMFORT AT THIS TIME. SANCHEZ DRAINING MOD. AMOUNTS OF LT. YELLOW URINE. MONITOR OFF; VSS; AFEBRILE. DR. HARRELL, HOSPITALIST HERE, SEE ORDERS.
--- NOTE | 2018-05-08 12:00 | NUR ---
APPETITE FAIR; NO GI UPSET. IV ANTIBIOTIC TX. DC'D AND PATIENT TAKING ORAL ANTIBIOTICS.
--- NOTE | 2018-05-08 14:40 | NUR ---
TO TRANSFER TO [facility]. FLOOR, ROOM 308. PATIENT JUST LAID BACK DOWN AFTER DANGLING FOR ABOUT 45/MIN. CBG'S REQUIRING 3-5UNITS OF INSULIN COVERAGE.
--- NOTE | 2018-05-08 14:45 | NUR ---
REPORT TO ERIN ROBERTSON.
--- NOTE | 2018-05-08 15:20 | NUR ---
TRANSFERRED TO MEDICAL FLOOR, ROOM 308, VIA W/C WITH OXYGEN AT 2L/MIN. PATIENT TOLERATED WELL. CHART, MEDS. AND PERSONAL BELONGINGS (INCLUDING CANE) WITH PATIENT.
--- NOTE | 2018-05-08 16:09 | NUR ---
TRANSFER NOTE RECEIVED REPORT FORM JOSE MANUEL COLES RN IN ICU. PT TO ROOM VIA WHEELCHAIR AT 1530. 1 PERSON ASSIST TO TRANSFER TO BED. PT ORIENTED TO ROOM AND CALL LIGHT. BED IN LOW, BED ALARM ON, CALL LIGHT WITHIN REACH. PT A&OX3. CALM AND COOPERATIVE WITH CARE. PT SOB WITH EXERTION, ON 1L O2 VIA NC, >90%, LS DIM IN BASES. PT REPORTS NUMB/TING IN BLE AND PAIN 05/30. SANCHEZ CATHETER IN PLACE, PATENT AND DRAINING. PT DENIES N/V. ELEVATED BP NOTED. OTHER VSS. WILL CONTINUE TO MONITOR.
--- NOTE | 2018-05-09 04:56 | NUR ---
SUMMARY: A/OX3, USES CALL LIGHT AND IS SBA OOB. SHE MOANS OFTEN BUT DENIES NEEDS UPON QUESTIONING. SHE'S SOB W/EXERTION ON 1L O2 W/SPO2 WNL AND LS DIM IN BASES. LEGS REMAIN PAINFUL FROM NEUROPATHY W/ NORCO RECIEVED FOR TOLERABLE CONTROL. LLE CELLULITIS W/DRY FLAKEY SKIN PERSISTS. PT HAS A HEALING SX INCISION SITE AT THE MIDLINE OF HER CHEST W/DX REMAINING C/D/I AND SCANT AMT PURULENT DRAINAGED NOTED TO OPEN AREA, OTHERWISE SCABBING OBSERVED. DX TO HER L.INNER KNEE IS ALSO C/D/I. SANCHEZ PATENT AND DRAINING. NO ACUTE CHANGES, VSS AND AFEBRIE. WILL MONITOR AND REPORT TO DAY RN.
[2018-05-09 05:56] LABS: Anion Gap 4 mmol/L (6-16); Blood Urea Nitrogen 45 mg/dL (8-24); CO2, Blood 34 mmol/L (21-32); Calcium, Blood 9.1 mg/dL (8.5-10.1); Chloride, Blood 101 mmol/L (98-108); Creatinine, Blood 0.87 mg/dL (0.40-1.00); Glomerular Filtration Rate >60 (60-); Glucose, Blood 163 mg/dL (70-99); Magnesium, Blood 1.8 mg/dL (1.6-2.4); Potassium, Blood 4.9 mmol/L (3.5-5.5); Sodium, Blood 139 mmol/L (136-145)
[2018-05-09] MEDS ORDERED: CEPH500 PO (13:47)
[2018-05-09] MEDS ORDERED: LOSA50 PO (13:48)
[2018-05-09] MEDS ORDERED: TORSE20 PO (13:49)
[2018-05-09] MEDS ORDERED: LISI5 PO (13:53)
[2018-05-09] MEDS ORDERED: HYDR1TAB94 PO (13:53)
--- NOTE | 2018-05-09 16:13 | NUR ---
DISCHARGE SUMMARY PT A&0X3. PT ANXIOUS AT TIME, COOPERATIVE WITH CARE. PT RESTING IN BED DURING SHIFT. 1 PERSON ASSIST WITH WALKER. PT DENIES PAIN AND N/V DURING SHIFT. PT SOB WITH EXERTION, ON 1-2 L 02 VIA NC, HOME O2 EVAL COMPLETED, PT DISCHARGING HOME ON 2L O2 VIA NC. PT RECEIVED IV LASIX THIS AM, TRANSITIONING TO TORESMIDE AT HOME. PT RECEIVE PO ANTIBIOTICS, WILL COMPLETE COURSE AT HOME. LLE DRESSING CHANGED PRIOR TO DISCHARGE, NEW PICTURE IN CHART. PT BP CONTINUE TO BE ELEVATED DURING SHIFT, DR HARRELL NOTIFIED, NEW ORDERS TO INCREASE LOSARTAN TO 100MG, CALLED INTO [facility] AND NEW ORDERS FOR LOSARTAN 50MG PO NOW, ADMINISTERED PRIOR TO DISCHARGE. PT INSISTANT ON LEAVING WITH BP ELEVATED. OTHER VSS. NO OTHER ACUTE CHANGES NOTE DURING SHIFT. PT AND FAMILY/FRIEND EDUCATED ON DSICHARGE INSTRUCTIONS, MEDICATIONS, AND FOLLOWING UP WITH PCP APPOINTMENTS AND PRESCRIPTIONS. PT EDUCATED ON FLUID RESTRICTION, OXYGEN USE AT HOME AND HOW TO TAKE BP AT HOME AND FOLLOW MEDICATIONS PARAMETERS. PT EDUCATED ON FOLLOWING UP WITH [facility] FOR DRESSING CHANGES. PT EDUCATED ON LAB DRAW FOR BMP IN 1 WEEK. PRESCRIPTIONS FAXED [facility] AND THE CORRECTIONS FOR LOSARTAN CALLED IN TO [facility] PER PT REQUEST. [facility] PROVIDE PT WITH OXYGEN FOR TRANSPORTATION HOME. PT LEFT ROOM VIA WHEELCHAIR AT 1555. PT STABLE UPON DISCHARGE.
== END 2018-05-09 16:05 | disposition home or self-care (01) | DRG 291 ==
LOC: ER 10:41 → ICUW 12:41 → MEDS 05-08 15:19 → ENPENDDIS 05-09 09:57 → MEDS 05-09 16:05
PROVIDERS: Emergency Medicine; ADMIT Internal Medicine
PROC: 5A09357 Assistance with Respiratory Ventilation, Less than 24 Consecutive Hours, Continuous Positive Airway Pressure (ICD-10-PCS; principal; 2018-05-05)
PROC: 3E02340 Introduction of Influenza Vaccine into Muscle, Percutaneous Approach (ICD-10-PCS; 2018-05-05)
DX: I11.0 Hypertensive heart disease with heart failure (principal); J96.01 Acute respiratory failure with hypoxia; L03.116 Cellulitis of left lower limb; L02.416 Cutaneous abscess of left lower limb; T81.41XA Infection following a procedure, superficial incisional surgical site, initial encounter; Z87.891 Personal history of nicotine dependence; I50.33 Acute on chronic diastolic (congestive) heart failure; Z95.0 Presence of cardiac pacemaker; Z23 Encounter for immunization; I25.10 Atherosclerotic heart disease of native coronary artery without angina pectoris; Z95.1 Presence of aortocoronary bypass graft; E78.5 Hyperlipidemia, unspecified; E11.51 Type 2 diabetes mellitus with diabetic peripheral angiopathy without gangrene; Z90.13 Acquired absence of bilateral breasts and nipples; Z79.82 Long term (current) use of aspirin; Z79.4 Long term (current) use of insulin; Z91.19 Patient's noncompliance with other medical treatment and regimen; E03.9 Hypothyroidism, unspecified
CPT/HCPCS: 36415; 36600; 51703; 71045; 80048; 80053; 81001; 82803; 82947; 83735; 83880; 84484; 85025; 87081; 90686; 93005; 93010; 94660; 94761; 96374; 96375; 97161; 97530; 99285-25; G0008; J0690; J1650; J1940; J2405; J3010; J7050

== ENCOUNTER 2018-06-07 04:26 | Emergency (ER) | payer MEDICARE, OTHER ==
[~2018-06-07] VITALS: Ht 172.7 cm; Wt 104.7 kg
[~2018-06-07 04:26] MED LIST changes: +**INCOMPLETE MED REC; +ATOR40TA PO; +CLOP75 PO; +Cilostazol50 MG PO; +GABA300 PO; +HYDR1TAB94 PO; +LEVSOD100 PO; +LISI5 PO; +LOSARTAN POTAS100 MG PO; +METF500C PO; +METO50 PO; +Mupirocin22 GM TOP; +NITR.4SL SL; +Prinivil10 MG PO; +TORSE20 PO
[2018-06-07] MEDS ORDERED: CEPH500 PO (04:49)
[2018-06-07] MEDS ORDERED: GABA600 PO (04:52)
[2018-06-07] MEDS ORDERED: METF500C PO (04:53)
[2018-06-07] MEDS ORDERED: Prinivil10 MG PO (04:55)
[2018-06-07 05:40] LABS: BASOPHILS ABSOLUTE AUTO 0.02 K/mm3 (0.00-0.23); BASOPHILS PERCENT AUTO 0 % (0-2); EOSINOPHILS ABSOLUTE AUTO 0.18 K/mm3 (0.00-0.68); EOSINOPHILS PERCENT AUTO 3 % (0-6); Hematocrit 33.3 % (33.0-51.0); Hemoglobin 9.7 g/dL (11.5-16.0); IMMATURE GRAN ABSOLUTE AUTO 0.01 K/mm3 (0.00-0.10); IMMATURE GRAN PERCENT AUTO 0 % (0-1); LYMPHOCYTES ABSOLUTE AUTO 1.56 K/mm3 (0.84-5.20); LYMPHOCYTES PERCENT AUTO 22 % (21-46); MONOCYTES ABSOLUTE AUTO 0.38 K/mm3 (0.16-1.47); MONOCYTES PERCENT AUTO 5 % (4-13); Mean Corpuscular HGB 25.7 pg (26.0-34.0); Mean Corpuscular HGB Conc 29.1 g/dL (31.5-36.5); Mean Corpuscular Volume 88 fL (80-100); Mean Platelet Volume 10.2 fL (9.1-12.4); NEUTROPHILS ABSOLUTE AUTO 4.92 K/mm3 (1.96-9.15); NEUTROPHILS PERCENT AUTO 70 % (41-73); Platelet Count 223 K/mm3 (150-400); RDW Coefficient Variation 17.1 % (11.7-14.2); RDW Standard Deviation 55.3 fL (35.1-46.3); Red Blood Cell Count 3.77 M/mm3 (3.80-5.20); White Blood Cell Count 7.07 K/mm3 (4.00-11.30)
[2018-06-07 05:58] LABS: Alanine Aminotransfer (ALT/SGP 17 U/L (12-78); Albumin, Blood 3.4 g/dL (3.4-5.0); Albumin/Globulin Ratio 0.8 (0.8-1.8); Alk Phos 100 U/L (50-136); Anion Gap 10 mmol/L (6-16); Aspartate Aminotrans (AST/SGOT 19 U/L (12-37); Bilirubin, Total 0.4 mg/dL (0.1-1.0); Blood Urea Nitrogen 43 mg/dL (8-24); Bun/Creatinine Ratio 46.9 (12.0-20.0); CO2, Blood 27 mmol/L (21-32); Calcium, Blood 9.3 mg/dL (8.5-10.1); Chloride, Blood 102 mmol/L (98-108); Creatinine, Blood 0.92 mg/dL (0.40-1.00); Globulin, Blood 4.5 g/dL (2.2-4.0); Glomerular Filtration Rate >60 (60-); Glucose, Blood 345 mg/dL (70-99); Potassium, Blood 4.4 mmol/L (3.5-5.5); Sodium, Blood 139 mmol/L (136-145); Total Protein, Blood 7.9 g/dL (6.4-8.2)
== END 2018-06-07 07:23 | disposition home or self-care (01) ==
LOC: ER 04:26
PROVIDERS: Emergency Medicine
DX: E11.42 Type 2 diabetes mellitus with diabetic polyneuropathy (principal); Z88.1 Allergy status to other antibiotic agents; Z79.899 Other long term (current) drug therapy; Z79.82 Long term (current) use of aspirin; Z79.4 Long term (current) use of insulin; I11.0 Hypertensive heart disease with heart failure; I50.9 Heart failure, unspecified; Z87.891 Personal history of nicotine dependence
CPT/HCPCS: 36415; 80053; 83605; 85025; 87070; 87075; 87077; 87186; 87205; 96374; 96375; 99283-25; A9270-GY; J1170; J2405

== ENCOUNTER 2018-08-01 13:57 | Emergency (ER) | payer MEDICARE, OTHER ==
[~2018-08-01] VITALS: Ht 175.3 cm; Wt 97.5 kg
[~2018-08-01 13:57] MED LIST changes: +GABA600 PO
[2018-08-01 14:43] LABS: BASOPHILS ABSOLUTE AUTO 0.02 K/mm3 (0.00-0.23); BASOPHILS PERCENT AUTO 0 % (0-2); EOSINOPHILS ABSOLUTE AUTO 0.15 K/mm3 (0.00-0.68); EOSINOPHILS PERCENT AUTO 2 % (0-6); Hematocrit 35.4 % (33.0-51.0); Hemoglobin 10.7 g/dL (11.5-16.0); IMMATURE GRAN ABSOLUTE AUTO 0.02 K/mm3 (0.00-0.10); IMMATURE GRAN PERCENT AUTO 0 % (0-1); LYMPHOCYTES ABSOLUTE AUTO 1.25 K/mm3 (0.84-5.20); LYMPHOCYTES PERCENT AUTO 16 % (21-46); MONOCYTES ABSOLUTE AUTO 0.33 K/mm3 (0.16-1.47); MONOCYTES PERCENT AUTO 4 % (4-13); Mean Corpuscular HGB Conc 30.2 g/dL (31.5-36.5); Mean Corpuscular Volume 89 fL (80-100); Mean Platelet Volume 9.6 fL (9.1-12.4); NEUTROPHILS ABSOLUTE AUTO 6.11 K/mm3 (1.96-9.15); NEUTROPHILS PERCENT AUTO 77 % (41-73); Platelet Count 386 K/mm3 (150-400); RDW Coefficient Variation 19.1 % (11.7-14.2); RDW Standard Deviation 62.6 fL (35.1-46.3); Red Blood Cell Count 3.96 M/mm3 (3.80-5.20); White Blood Cell Count 7.88 K/mm3 (4.00-11.30)
[2018-08-01 15:14] LABS: Alanine Aminotransfer (ALT/SGP 17 U/L (12-78); Albumin, Blood 3.2 g/dL (3.4-5.0); Albumin/Globulin Ratio 0.6 (0.8-1.8); Alk Phos 142 U/L (50-136); Anion Gap 5 mmol/L (6-16); Aspartate Aminotrans (AST/SGOT 16 U/L (12-37); Bilirubin, Total 0.2 mg/dL (0.1-1.0); Blood Urea Nitrogen 38 mg/dL (8-24); CO2, Blood 27 mmol/L (21-32); Calcium, Blood 9.7 mg/dL (8.5-10.1); Chloride, Blood 98 mmol/L (98-108); Globulin, Blood 5.4 g/dL (2.2-4.0); Glomerular Filtration Rate >60 (60-); Glucose, Blood 368 mg/dL (70-99); Potassium, Blood 5.6 mmol/L (3.5-5.5); Sodium, Blood 130 mmol/L (136-145); Total Protein, Blood 8.6 g/dL (6.4-8.2)
[2018-08-01] MEDS ORDERED: BASAGLAR K100 UNIT/1 SC (18:59)
[2018-08-01] MEDS ORDERED: Doxycycline Hy100 MG PO (20:14)
[2018-08-01] MEDS ORDERED: Roxicodone5 MG PO (20:14)
== END 2018-08-01 20:26 | disposition home or self-care (01) ==
LOC: ER 13:57
PROVIDERS: Physician Assistant
DX: L03.116 Cellulitis of left lower limb (principal); L03.115 Cellulitis of right lower limb; E11.51 Type 2 diabetes mellitus with diabetic peripheral angiopathy without gangrene; I11.0 Hypertensive heart disease with heart failure; I50.9 Heart failure, unspecified; Z79.899 Other long term (current) drug therapy
CPT/HCPCS: 36415; 73590; 73630; 80053; 85025; 93925; 96361; 96374; 99284-25; A9270-GY; J1170; J7030

== ENCOUNTER 2018-08-10 11:28 | Day surgery (SDC) | payer MEDICARE, OTHER ==
[~2018-08-10 11:28] MED LIST changes: +Doxycycline Hy100 MG PO; +Roxicodone5 MG PO
== END 2018-08-10 22:57 | disposition home or self-care (01) ==
LOC: WOUND 11:28
DX: E11.622 Type 2 diabetes mellitus with other skin ulcer (principal); L97.829 Non-pressure chronic ulcer of other part of left lower leg with unspecified severity; E11.40 Type 2 diabetes mellitus with diabetic neuropathy, unspecified; E11.21 Type 2 diabetes mellitus with diabetic nephropathy; E11.51 Type 2 diabetes mellitus with diabetic peripheral angiopathy without gangrene; I70.244 Atherosclerosis of native arteries of left leg with ulceration of heel and midfoot; I70.248 Atherosclerosis of native arteries of left leg with ulceration of other part of lower leg; I70.245 Atherosclerosis of native arteries of left leg with ulceration of other part of foot; I87.2 Venous insufficiency (chronic) (peripheral); I11.0 Hypertensive heart disease with heart failure; I50.9 Heart failure, unspecified; I25.10 Atherosclerotic heart disease of native coronary artery without angina pectoris; J44.9 Chronic obstructive pulmonary disease, unspecified; E03.9 Hypothyroidism, unspecified; Z87.891 Personal history of nicotine dependence; Z71.6 Tobacco abuse counseling; Z88.1 Allergy status to other antibiotic agents
CPT/HCPCS: 87070; 87075; 87077; 87106; 87147; 87186; 87205; G0463

== ENCOUNTER 2018-08-24 08:55 | Day surgery (SDC) | payer MEDICARE, OTHER ==
[~2018-08-24 08:55] MED LIST changes: +Aspirin EC81 MG PO
[2018-09-14] MEDS ORDERED: Prinivil10 MG PO (11:05)
[2018-09-14] MEDS ORDERED: Norco 5-325 Ta1 EACH PO (11:05)
[2018-09-14] MEDS ORDERED: Metoprolol Succ25 MG PO (11:06)
[2018-09-14] MEDS ORDERED: NOVOLOG FL100 UNIT/1 SC (11:07)
== END 2018-08-24 23:03 | disposition home or self-care (01) ==
LOC: WOUND 08:55
DX: E11.622 Type 2 diabetes mellitus with other skin ulcer (principal); E11.621 Type 2 diabetes mellitus with foot ulcer; L97.822 Non-pressure chronic ulcer of other part of left lower leg with fat layer exposed; L97.529 Non-pressure chronic ulcer of other part of left foot with unspecified severity; E11.51 Type 2 diabetes mellitus with diabetic peripheral angiopathy without gangrene; I70.245 Atherosclerosis of native arteries of left leg with ulceration of other part of foot; I70.248 Atherosclerosis of native arteries of left leg with ulceration of other part of lower leg; I25.119 Atherosclerotic heart disease of native coronary artery with unspecified angina pectoris; E11.21 Type 2 diabetes mellitus with diabetic nephropathy; E11.40 Type 2 diabetes mellitus with diabetic neuropathy, unspecified; I11.0 Hypertensive heart disease with heart failure; I50.9 Heart failure, unspecified; E03.9 Hypothyroidism, unspecified; J44.9 Chronic obstructive pulmonary disease, unspecified; Z87.891 Personal history of nicotine dependence; Z95.1 Presence of aortocoronary bypass graft; Z79.899 Other long term (current) drug therapy; Z79.01 Long term (current) use of anticoagulants; Z79.4 Long term (current) use of insulin
CPT/HCPCS: G0463

== ENCOUNTER 2018-09-07 08:50 | Day surgery (SDC) | payer MEDICARE, OTHER ==
[2018-09-14] MEDS ORDERED: Norco 5-325 Ta1 EACH PO (11:05)
[2018-09-14] MEDS ORDERED: Prinivil10 MG PO (11:05)
[2018-09-14] MEDS ORDERED: Metoprolol Succ25 MG PO (11:06)
[2018-09-14] MEDS ORDERED: NOVOLOG FL100 UNIT/1 SC (11:07)
== END 2018-09-07 22:50 | disposition home or self-care (01) ==
LOC: WOUND 08:50
DX: E11.621 Type 2 diabetes mellitus with foot ulcer (principal); E11.622 Type 2 diabetes mellitus with other skin ulcer; L97.822 Non-pressure chronic ulcer of other part of left lower leg with fat layer exposed; L97.529 Non-pressure chronic ulcer of other part of left foot with unspecified severity; L97.519 Non-pressure chronic ulcer of other part of right foot with unspecified severity; I87.2 Venous insufficiency (chronic) (peripheral); E11.21 Type 2 diabetes mellitus with diabetic nephropathy; E11.40 Type 2 diabetes mellitus with diabetic neuropathy, unspecified; E11.51 Type 2 diabetes mellitus with diabetic peripheral angiopathy without gangrene; I70.244 Atherosclerosis of native arteries of left leg with ulceration of heel and midfoot; I70.248 Atherosclerosis of native arteries of left leg with ulceration of other part of lower leg; I70.245 Atherosclerosis of native arteries of left leg with ulceration of other part of foot; I11.0 Hypertensive heart disease with heart failure; I50.9 Heart failure, unspecified; I25.10 Atherosclerotic heart disease of native coronary artery without angina pectoris; J44.9 Chronic obstructive pulmonary disease, unspecified
CPT/HCPCS: 87071; 87075; 87077; 87106; 87186; 87205

== ENCOUNTER 2018-09-15 06:59 | Day surgery (SDC) | payer MEDICARE, OTHER ==
[~2018-09-15] VITALS: Ht 172.7 cm; Wt 98.0 kg
[~2018-09-15 06:59] MED LIST changes: +Metoprolol Succ25 MG PO; +NOVOLOG FL100 UNIT/1 SC; +Norco 5-325 Ta1 EACH PO
--- NOTE | 2018-09-15 07:47 | NUR ---
Pt with multiple wounds on left heal and left singh, right heal and right pinky toe black. Pt has wounds covered with special bandaids. She goes to wound clinic once per week. Lungs clear bilat with diminished right lower lobe.
--- NOTE | 2018-09-15 12:28 | NUR ---
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 FBS 106 no pain at this time. right foot is pink color is improved from pre-op, pulse dp papable. Sbar from Joel Rosado RN. Call light within reach. Warm blankets around pt's head and body. Left groin site wnl soft non-tender. Left foot with bandaid this has small amount of blood on large 3x3 dressing.
--- NOTE | 2018-09-15 12:40 | NUR ---
iv grade o left a/c #[id number] 200 josé antonio NS
--- NOTE | 2018-09-15 14:11 | NUR ---
REPORT TO Alexandria KHAN. Pt stable preparing for home
== END 2018-09-15 14:30 | disposition home or self-care (01) ==
LOC: MHTC 06:59
DX: I70.201 Unspecified atherosclerosis of native arteries of extremities, right leg (principal); E13.59 Other specified diabetes mellitus with other circulatory complications; Z79.84 Long term (current) use of oral hypoglycemic drugs
CPT/HCPCS: 37226; 37228; 75625; 75716; 75774; 76937; 82947; 99152; 99153; C1725; C1760; C1769; C1874; C1887; C1894; C2623; J1200; J1644; J2250; J3010; J7030; Q9967

== ENCOUNTER 2018-09-21 09:04 | Day surgery (SDC) | payer MEDICARE, OTHER | END 2018-09-21 23:44 | disposition home or self-care (01) | LOC: WOUND 09:04 | DX: E11.621 Type 2 diabetes mellitus with foot ulcer (principal); E11.622 Type 2 diabetes mellitus with other skin ulcer; L97.513 Non-pressure chronic ulcer of other part of right foot with necrosis of muscle; L97.822 Non-pressure chronic ulcer of other part of left lower leg with fat layer exposed; E11.51 Type 2 diabetes mellitus with diabetic peripheral angiopathy without gangrene; I70.244 Atherosclerosis of native arteries of left leg with ulceration of heel and midfoot; I70.245 Atherosclerosis of native arteries of left leg with ulceration of other part of foot; I70.248 Atherosclerosis of native arteries of left leg with ulceration of other part of lower leg; E11.21 Type 2 diabetes mellitus with diabetic nephropathy; E11.40 Type 2 diabetes mellitus with diabetic neuropathy, unspecified; I11.0 Hypertensive heart disease with heart failure; I50.9 Heart failure, unspecified; I25.10 Atherosclerotic heart disease of native coronary artery without angina pectoris; J44.9 Chronic obstructive pulmonary disease, unspecified; E03.9 Hypothyroidism, unspecified; Z95.1 Presence of aortocoronary bypass graft; Z87.891 Personal history of nicotine dependence ==

== ENCOUNTER 2018-09-29 00:57 | Inpatient (IN) | payer MEDICARE, OTHER ==
[~2018-09-29] VITALS: Ht 172.7 cm; Wt 104.6 kg
[2018-09-29] MEDS ORDERED: Sulfamethoxazo1 EAC4 (01:34)
[2018-09-29 03:09] LABS: BASOPHILS ABSOLUTE AUTO 0.02 K/mm3 (0.00-0.23); BASOPHILS PERCENT AUTO 0 % (0-2); EOSINOPHILS ABSOLUTE AUTO 0.23 K/mm3 (0.00-0.68); EOSINOPHILS PERCENT AUTO 2 % (0-6); Hematocrit 28.2 % (33.0-51.0); Hemoglobin 8.7 g/dL (11.5-16.0); IMMATURE GRAN ABSOLUTE AUTO 0.04 K/mm3 (0.00-0.10); IMMATURE GRAN PERCENT AUTO 0 % (0-1); LYMPHOCYTES ABSOLUTE AUTO 2.19 K/mm3 (0.84-5.20); LYMPHOCYTES PERCENT AUTO 23 % (21-46); MONOCYTES ABSOLUTE AUTO 0.46 K/mm3 (0.16-1.47); MONOCYTES PERCENT AUTO 5 % (4-13); Mean Corpuscular HGB 29.1 pg (26.0-34.0); Mean Corpuscular HGB Conc 30.9 g/dL (31.5-36.5); Mean Corpuscular Volume 94 fL (80-100); Mean Platelet Volume 9.3 fL (9.1-12.4); NEUTROPHILS ABSOLUTE AUTO 6.46 K/mm3 (1.96-9.15); NEUTROPHILS PERCENT AUTO 69 % (41-73); Platelet Count 348 K/mm3 (150-400); RDW Coefficient Variation 17.1 % (11.7-14.2); RDW Standard Deviation 59.5 fL (35.1-46.3); Red Blood Cell Count 2.99 M/mm3 (3.80-5.20)
[2018-09-29 03:25] LABS: Albumin/Globulin Ratio 0.6 (0.8-1.8); Bilirubin, Total 0.4 mg/dL (0.1-1.0); Bun/Creatinine Ratio 42.9 (12.0-20.0); Calcium, Blood 9.6 mg/dL (8.5-10.1); Creatinine, Blood 1.19 mg/dL (0.40-1.00); Globulin, Blood 5.2 g/dL (2.2-4.0); Potassium, Blood 4.2 mmol/L (3.5-5.5); Total Protein, Blood 8.2 g/dL (6.4-8.2)
--- NOTE | 2018-09-29 09:55 | NUR ---
SHE HAS POOR PAIN CONTROL WITH FENTANYL. SHE IS CRYING MOST OF THE TIME. SHE TELLS ME SHE IS SCHEDULED FOR REVASSCULARIZATION TOMORROW ON THE L LEG. WILL TALK TO ABOUT HER PAIN MANAGEMENT AND HER NPO STATUS.
--- NOTE | 2018-09-29 16:14 | NUR ---
Pal Spiritual [facility] initial visit: Babs was very groggy and appeared unable to communicate at time of visit. No family/friends present. She appears comfortable and well cared-for by nursing. I will remain available to pt and family.
--- NOTE | 2018-09-29 17:20 | NUR ---
SHE STARTED OUT THIS MORNING CRYING CONTINUALLY D/T THE PAIN IN HER L FOOT AND LEG. FENTANYL WAS GIVEN BUT INEFFECTIVE. I SPOKE WITH . DILAUDID WAS ORDERED AND GIVEN. HER DAUGHTER VISITED DURING THIS TIME. THE PATIENT ATE SOMETHING FROM [facility] BECAUSE SHE WAS NPO AT BREAKFAST. AND BOTH ROUNDED. PROCEDURE TOMORROW MORNING. , THE SUPERVISOR [employer] ALSO CONSULTED. DRESSINGS WERE REMOVED AT THAT TIME AND PHOTOS WERE TAKEN. ABOUT AN HOUR AND A HALF LATER, I DRESSED ALL HER WOUNDS. SHE TOLERATED IT WELL BECAUSE SHE WAS SO SLEEPY FROM THE 1MG DILAUDID DOSE. SHE ATE 45% OF LUNCH AND SLEPT SOME MORE. HER DAUGHTER WAS SUPPOSE TO BRING BACK HER INSULIN BUT NEVER DID. WITH AFTERNOON VS IT WAS FOUND THAT SHE APPEARED TO HAVE SLEEP APNEA AND DESATTED TO LOW 80'S. I PUT 2L ON HER AND ORDERED PER ANALGESIC PROTOCOL CONTINUOUS BIOX. RT INITIATED IT. WHEN PATIENT AWOKE ENOUGH TO GO TO THE BATHROOM, SHE SAT UP AND HAD A 300 ML EMESIS. SHE THEN WALKED WITH ASSIST TO THE BATHROOM AND BACK. SHE VOIDED WELL. BED ALARM WAS INITIATED EARLIER TODAY AFTER DILAUDID WAS GIVEN AND RESUMED WHEN BACK TO BED. WALKER IN ROOM FOR ASSIST NEXT TIME. ZOFRAN WAS GIVEN ALONG WITH A 1/2 MG DILAUDID FOR THE TERRIBLE PAIN AGAIN. IT WAS A 10 WHEN I WENT TO THE PYXIS, BUT A 6 WHEN I ACTUALLY ADMINISTERED THE DILAUDID. IT WAS A 10 AGAIN BEFORE I LEFT THE ROOM. SHE CRIES OR CRIES OUT WITH PAIN. I ALSO CALLED TO NOTIFY HIM OF THE LOW AND LOW NORMAL CBG'S TODAY. HE DC'D THE LONG ACTING INSULIN ORDER AND ORDERED LOW SS HUMALOG. ADMIT HX DONE THIS AFTERNOON. WILL CONTINUE TO MONITOR.
--- NOTE | 2018-09-29 18:07 | NUR ---
VS RECHECKED AND ARE IMPROVED.
--- NOTE | 2018-09-29 20:30 | NUR ---
PT WAS UP TO THE BATHROOM WHICH CAUSED HER PAIN TO BE MORE ELVATED AND THEREFORE WAS CRYING IN BED. STATES PAIN IS A THROBBING, COMES AND GOES, SHARP THAT RADIATES UP THE LEG. SHE STATES PAIN IS 8/10 AT THIS TIME, RAN AND GOT HER SOME PAIN MEDS GAVE HER DILAUDID 1/2 MG WHICH RELEIVED HER PAIN DOWN TO A 3/[address]. SHE IS OXYGEN 2 L DUE TO DILAUDID 1MG GIVEN AND CAUSED HER BLOOD PRESSURE TO DROP AND SATS TO DROP. NOTED BP IS STILL BELOW 100 THEREFORE WITHHELD HER BLOOD PRESSURE MEDICATIONS AT THIS TIME. WILL CONTIUE TO CURT.
[2018-09-30 05:22] LABS: BASOPHILS ABSOLUTE AUTO 0.02 K/mm3 (0.00-0.23); BASOPHILS PERCENT AUTO 0 % (0-2); EOSINOPHILS ABSOLUTE AUTO 0.38 K/mm3 (0.00-0.68); EOSINOPHILS PERCENT AUTO 5 % (0-6); Hemoglobin 7.9 g/dL (11.5-16.0); IMMATURE GRAN ABSOLUTE AUTO 0.04 K/mm3 (0.00-0.10); IMMATURE GRAN PERCENT AUTO 1 % (0-1); LYMPHOCYTES ABSOLUTE AUTO 1.54 K/mm3 (0.84-5.20); LYMPHOCYTES PERCENT AUTO 19 % (21-46); MONOCYTES ABSOLUTE AUTO 0.47 K/mm3 (0.16-1.47); MONOCYTES PERCENT AUTO 6 % (4-13); Mean Corpuscular HGB 29.4 pg (26.0-34.0); Mean Corpuscular HGB Conc 30.4 g/dL (31.5-36.5); Mean Platelet Volume 9.1 fL (9.1-12.4); NEUTROPHILS ABSOLUTE AUTO 5.53 K/mm3 (1.96-9.15); NEUTROPHILS PERCENT AUTO 69 % (41-73); Platelet Count 302 K/mm3 (150-400); RDW Coefficient Variation 17.8 % (11.7-14.2); RDW Standard Deviation 61.9 fL (35.1-46.3); Red Blood Cell Count 2.69 M/mm3 (3.80-5.20); White Blood Cell Count 7.98 K/mm3 (4.00-11.30)
[2018-09-30 05:25] LABS: Mean Corpuscular Volume 97 fL (80-100)
--- NOTE | 2018-09-30 06:19 | NUR ---
SHIFT SUMMARY: PATIENT HAD OFF AND ON PAIN IN HER LEFT FOOT, THIS WAS MANAGED WITH DILAUDID OF 0.5MG, SHE HAD OCCATIONAL CONFUSION OFF AND ON THROUGHOUT THE NIGHT BUT WAS EASILY ORIENTED. IT WAS LIKE SHE WAS DREAMING OUT LOUD. SATS REMAINED IN 90s WITH 2 LITERS OF O2. DRESSINGS REMAINED INTACT. SHE SLEPT IN BETWEEN DOSAGE OF HER PAIN MEDS. BLOOD SUGARS REMAINED AROUND 110'S AND NO COVERAGE WAS NEEDED. VS REMAINED STABLE. MEDS GIVEN PER EMAR. NO OTHER CHANGES TO NOTE THIS SHIFT. WILL REPORT TO DAY RN.
--- NOTE | 2018-09-30 08:04 | NUR ---
HOLDING CARDIAC MEDS DR. PAYNE CALLED & INFORMED THAT PT BP IS 101/63 WITH A HR OF 81. PT SCHEDULED FOR REVASCULARZATION THIS AM. DR. PAYNE ORDERED TO HOLD CARDIAC MEDS AT THIS TIME. WILL CONTINUE TO MONITOR.
--- NOTE | 2018-09-30 09:08 | NUR ---
PROCEDURE PREP JALEEL, NURSE GIVEN REPORT ON PT CONDITION WITH AM. JALEEL PREPPED PT IN ROOM. 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 AWAITING NEW ROOM ASSIGNMENT.
--- NOTE | 2018-09-30 09:34 | NUR ---
REPORT GIVEN REPORT GIVEN TO ICU3 NURSE, GREGORIA Marcos RN. DENIES ANY FURTHER QUESTIONS. BELONGINGS DELIVERED TO NEW ROOM.
--- NOTE | 2018-09-30 12:10 | NUR ---
ASSUMED CARE OF PT FROM HEART CENTER. VS STABLE. RIGHT GROIN SITE FREE FROM ANY BRUISING, HEMATOMA, OR BLEEDING. PT COMPLAINS OF PAIN, BUT FALLING ASLEEP MID SENTENCE. WILL MEDICATE FOR PAIN WHEN PT BECOMES MORE ALERT. 1U PRBC INFUSING UPON ASSESSMENT. LS CLEAR IN THE UPPER LOBES WITH FIN CRACKLES IN THE BASES. HR NSR WITH FIRST DEGREE WITH BBB RATE OF 82 PER SPLICING MACHINE OPERATOR AUTOMATIC. WOUNDS TO TOES ON LEFT FOOT COVERED WITH BANDAGE, BUT PICTURES IN THE CHART. WILL CONTINUE TO MONITOR CLOSELY.
--- NOTE | 2018-09-30 16:19 | NUR ---
TRANSFUSION OF 1U PRBC STARTED. WILL CONTINUE TO MONITOR AND CHECK VITAL SIGNS PER PROTOCOL.
--- NOTE | 2018-09-30 16:19 | NUR ---
IV IN LEFT FOREARM HAS INFILTRATED DURING TRANSFUSION. HOLDING TRANSFUSION UNTIL NEW IV CAN BE PLACED.
--- NOTE | 2018-09-30 16:40 | NUR ---
NEW IV PLACED IN LEFT UPPER ARM. WILL RESUME TRANSFUSION.
--- NOTE | 2018-09-30 17:54 | NUR ---
SHIFT SUMMARY PT ALERT AND ORIENTED. VS STABLE. 02 SATS REMAIN ABOVE 90% ON 2L NC. PT COMPLAINS OF PAIN IN HER LEFT TOE THAT WAS RELIEVED WITH MEDICATION ADMINISTRATION. RIGHT GROIN SITE FREE FROM ANY BLEEDING OR HEMATOMA FORMATION. 1 UNIT PRBC TRANSFUSING AT THIS TIME. WILL CONTINUE TO MONITOR AND REPORT TO ONCOMING RN. CALL LIGHT IN REACH.
--- NOTE | 2018-09-30 21:26 | NUR ---
CARE ASSUMPTION PT A&O X4. PT C/O PAIN IN L LEG FROM "KNEE DOWN". WOUNDS TO BILAT FEET & L LEG DRESSED W/ MEPILEX DRESSINGS, SEE PHOTOS IN CHART. PT CRYING. WHEN ASKING PT WHAT HAS BEEN ABLE TO HELP W/ PAIN PT TEARFULLY STATES "NOTHING, I JUST CRY ALL THE TIME." PT LYING IN BED W/ HEELS FLOATED. VSS. WILL CONTINUE TO MONITOR AND PROVIDE CARE.
--- NOTE | 2018-10-01 07:55 | NUR ---
SHIFT SUMMARY PT A&O X4. VSS. NO CHANGES OVERNIGHT. SEE PREVIOUS NOTES. REPORT GIVEN TO DAY SHIFT RN.
--- NOTE | 2018-10-01 08:51 | NUR ---
ASSUMED CARE OF PATIENT AT APPROX 0700. PT RESTING IN BED WITH HOB ELEVBATED. PT A&Ox3. PT MOANING IN PAIN, STATING THAT HER FEET HURT, RATES PAIN 8/10. PT REQUESTS TO BE PUT ON BED PA, WITH APPROX 50CC, PT STATES SHE STILL FEELING LIKE SHE NEEDS TO PEE AND THAT HER LOWER ABD WAS PAINFUL. BLADDER SCAN COMPLETED, WITH >[address] DELEON NOTIFIED, NEW ORDERS FOR STRAIGHT CATH PRN FOR >450cc. MEDICATED PT WITH DILAUDID 0.5MG IV FOR PAIN. ATTEMPTING TO STRAIGHT CATH PATIENT, PT HAD TEARFUL EPISODE, STATES SHE "JUST WANTS THIS OVER WITH" AND SHE "JUST WANTS TO GO HOME. PT DENIES SOB, ON 2L O2 VIA NC, >92%, LS DIM. PT DENIES NAUSEA, GOOD APPETITE. BS PRESENT/HYPOACTIVE, ABD MILD DIS, SOFT AND NONTENDER. VSS. WILL CONTINUE TO MONITOR.
[2018-10-01 09:41] LABS: BASOPHILS ABSOLUTE AUTO 0.02 K/mm3 (0.00-0.23); BASOPHILS PERCENT AUTO 0 % (0-2); EOSINOPHILS ABSOLUTE AUTO 0.27 K/mm3 (0.00-0.68); EOSINOPHILS PERCENT AUTO 3 % (0-6); Hematocrit 29.4 % (33.0-51.0); Hemoglobin 9.1 g/dL (11.5-16.0); IMMATURE GRAN ABSOLUTE AUTO 0.05 K/mm3 (0.00-0.10); IMMATURE GRAN PERCENT AUTO 1 % (0-1); LYMPHOCYTES ABSOLUTE AUTO 1.07 K/mm3 (0.84-5.20); LYMPHOCYTES PERCENT AUTO 11 % (21-46); MONOCYTES PERCENT AUTO 5 % (4-13); Mean Corpuscular HGB 29.8 pg (26.0-34.0); Mean Corpuscular Volume 96 fL (80-100); Mean Platelet Volume 9.2 fL (9.1-12.4); NEUTROPHILS ABSOLUTE AUTO 7.97 K/mm3 (1.96-9.15); NEUTROPHILS PERCENT AUTO 81 % (41-73); Platelet Count 307 K/mm3 (150-400); RDW Coefficient Variation 16.8 % (11.7-14.2); RDW Standard Deviation 59.5 fL (35.1-46.3); Red Blood Cell Count 3.05 M/mm3 (3.80-5.20); White Blood Cell Count 9.88 K/mm3 (4.00-11.30)
[2018-10-01 09:53] LABS: Percent Saturation 12.2 % (15.0-50.0)
[2018-10-01 09:57] LABS: Albumin, Blood 2.3 g/dL (3.4-5.0); Anion Gap 4 mmol/L (6-16); Blood Urea Nitrogen 53 mg/dL (8-24); Bun/Creatinine Ratio 29.8 (12.0-20.0); CO2, Blood 29 mmol/L (21-32); Calcium, Blood 8.7 mg/dL (8.5-10.1); Chloride, Blood 99 mmol/L (98-108); Creatinine, Blood 1.78 mg/dL (0.40-1.00); Glomerular Filtration Rate 31 (60-); Glucose, Blood 191 mg/dL (70-99); Phosphorus, Blood 3.9 mg/dL (2.5-4.9); Potassium, Blood 4.7 mmol/L (3.5-5.5); Sodium, Blood 132 mmol/L (136-145)
--- NOTE | 2018-10-01 10:30 | NUR ---
SPOKE WITH DR. SANTIAGO ON THE PHONE ABOUT REVASCULARIZATION YESTERDAY. DR. SANTIAGO STATES HE WILL PLAN TO TAKE THE PT IN FOR AMPUTATION TOMORROW MORNING. PT TO BE NPO AT MIDNIGHT.
--- NOTE | 2018-10-01 14:17 | NUR ---
LATE ENTRY- 1315 DR SANTIAGO TO ROOM, NEW ORDERS FOR NPO AT MIDNIGHT FOR PROCEDURE TOMORROW 10/02/18 1415 APPEARS TO BE SLEEPING. O2 SATURATION 97 ON 2L O2 VIA NC, TITRATED PT TO 1L O2. PT WOKE UP TO VERBAL STIMULI, PT DENIES THE NEED TO URINATE AT THIS TIME, ASKING TO TRY IN AN HOUR SO SHE CAN SLEEP. WILL CONTINUE TO MONITOR
--- NOTE | 2018-10-01 17:32 | NUR ---
PT UNABLE TO VOID ON BED PA. BLADDER SCAN SHOWS 300 ML. PT ENCOURAGED TO ATTEMPT BSC. PT COMPLAINS OF PAIN WHEN SHE STANDS IN HER WOUNDS TO BOTH LEGS. PT ABLE TO TRANSFER TO BSC WITH SBA. PT VOIDED 100 ML. PT STATES SHE WILL ATEMPT TO VOID AGAIN AFTER DINNER.
--- NOTE | 2018-10-01 18:27 | NUR ---
SHIFT SUMMARY PT A&Ox3. PT ANXIOUS AND COOPERATIVE WITH CARE. PT RESTING IN BED DURING SHIFT, APPEARS TO BE SLEEPING FOR MAJORITY OF SHIFT. UP TO BSC WITH 1 PERSON ASSIST. PT REPORTS PAIN IN LLE, MEDICATED x1 WITH DILAUDID AND x1 WITH NORCO. PT SOB WITH EXERTION, TITRATE FROM 2L O2 VIA NC TO 1L O2 VIA NC, >92%. PT DENIES NAUSEA, HAS GOOD APPETITE. PT RETAINING >999cc IN BLADDER THIS AM, STRAIGHT CATH THIS AM. BLADDER SCAN THIS AFTERNOON APPROX 300cc. AMPUTATION PROCEDURE PLANNED FOR TOMORROW AM, PLAND TO BE NPO AFTER DINNER. VSS. NO OTHER ACUTE CHANGES NOTED DURING SHIFT WILL CONTINUE TO MONITOR UNTIL REPORT GIVEN TO ONCOMING RN.
--- NOTE | 2018-10-02 00:02 | NUR ---
TRANSFER NOTE PATIENT PLEASENT AND COOPERATIVE. PATIENT PROVIDED PAIN MEDICATION PER EMAR. PATIENT APPEARED TO NAP ON AND OFF THROUGHOUT THE BEGINNING PART OF THE NIGHT. REPORT GIVEN TO ERIN LAMAR. PATIENT TRANSFERED UP TO ROOM 356 AT [facility] 2326. ALL BELONGINGS GATHERED AND SENT WITH PATIENT.
[2018-10-02 05:11] LABS: BASOPHILS ABSOLUTE AUTO 0.03 K/mm3 (0.00-0.23); BASOPHILS PERCENT AUTO 0 % (0-2); EOSINOPHILS ABSOLUTE AUTO 0.33 K/mm3 (0.00-0.68); EOSINOPHILS PERCENT AUTO 4 % (0-6); Hemoglobin 9.2 g/dL (11.5-16.0); IMMATURE GRAN ABSOLUTE AUTO 0.02 K/mm3 (0.00-0.10); IMMATURE GRAN PERCENT AUTO 0 % (0-1); LYMPHOCYTES ABSOLUTE AUTO 1.42 K/mm3 (0.84-5.20); LYMPHOCYTES PERCENT AUTO 15 % (21-46); MONOCYTES ABSOLUTE AUTO 0.54 K/mm3 (0.16-1.47); MONOCYTES PERCENT AUTO 6 % (4-13); Mean Corpuscular HGB 29.4 pg (26.0-34.0); Mean Corpuscular HGB Conc 30.7 g/dL (31.5-36.5); Mean Corpuscular Volume 96 fL (80-100); Mean Platelet Volume 8.9 fL (9.1-12.4); NEUTROPHILS ABSOLUTE AUTO 6.93 K/mm3 (1.96-9.15); NEUTROPHILS PERCENT AUTO 75 % (41-73); Platelet Count 305 K/mm3 (150-400); RDW Coefficient Variation 16.9 % (11.7-14.2); RDW Standard Deviation 59.1 fL (35.1-46.3); Red Blood Cell Count 3.13 M/mm3 (3.80-5.20); White Blood Cell Count 9.27 K/mm3 (4.00-11.30)
[2018-10-02 05:27] LABS: Albumin, Blood 2.3 g/dL (3.4-5.0); Anion Gap 5 mmol/L (6-16); Blood Urea Nitrogen 50 mg/dL (8-24); Bun/Creatinine Ratio 29.4 (12.0-20.0); CO2, Blood 29 mmol/L (21-32); Calcium, Blood 8.8 mg/dL (8.5-10.1); Chloride, Blood 102 mmol/L (98-108); Glomerular Filtration Rate 33 (60-); Glucose, Blood 155 mg/dL (70-99); Phosphorus, Blood 3.4 mg/dL (2.5-4.9); Potassium, Blood 4.7 mmol/L (3.5-5.5); Sodium, Blood 136 mmol/L (136-145)
--- NOTE | 2018-10-02 06:59 | NUR ---
SHIFT SUMMARY PT TRANSFERRED TO ROOM AT APPROX 2330. C/O PAIN IN L FOOT AND MEDICATED PER EMAR X2. 2L O2 NC. NPO AT MIDNIGHT FOR UPCOMING PROCEDURE. SBA TO BSC. SHE WAS ABLE TO SLEEP ON AND OFF T/O NIGHT. CALL LIGHT IN REACH.
--- NOTE | 2018-10-02 08:49 | NUR ---
PT CURRENTLY IN OR.
--- NOTE | 2018-10-02 08:52 | NUR ---
10/02/18 0852 Shana Holt LIDOCAINE 1% PLAIN GIVEN FOR PRE-OPERATIVE BLOCK BY DR. SANTIAGO.
--- NOTE | 2018-10-02 10:13 | NUR ---
PT RETURNED FROM PACU TO ROOM ACCOMPANIED BY ERIN FLORES
--- NOTE | 2018-10-02 18:38 | NUR ---
SHIFT SUMMARYS SURGICAL AMPUTATION COMPLETED THIS A.M. OX3. EATING AND DRINKING WELL. 2 EPISODES OF LOOSE STOOLS (ONE INCONTINENT) THIS AFTERNOON. C/O PAIN TO SURGICAL SITE EMAR MEDICATIONS EFFECTIVE. 1 PERSON ASSIST TO BSC. MRSA TO WOUND. CARDIAC HX.VSS.
--- NOTE | 2018-10-03 04:24 | NUR ---
SHIFT SUMMARY PT ADMITTED FOR NECROTIC TOES TO L FOOT. CONTACT ISOLATION FOR MRSA TO WOUND ON 09/29/18. FULL CODE. ADA DIET. CBG AT AC AND HS. NON-WEIGHT BEARING TO L LEG-OPERATIVE FOOT. ELEVATE LLE ABOVE LEVEL OF HEART WHILE AT REST. BLADDER SCAN PRN-STRAIGHT CATH IN GREATER THEN 450. KEEP DRESSING TO LE FOOT C/D/I UNTIL F/U AND INSTRUCTED BY SURGEON FOR AMPUTATION OF TOES YESTERDAY. 2L O2 VIA NC WITH NO OXYGEN NEEDED AT PLOF. CONTINUOUS BIOX. 2 PERSON MAX ASSIST WITH TRANSFER THIS NIGHT. 20G IV TO L HAND AND L UPPER ARM. TAKES MEDICATIONS WHOLE ALL AT ONCE. THE PT HAS WOKE SCREAMING AND CRYING STATING IN EXTREME PAIN BUT EASILY DISTRACTS AND STATES 8/10 PAIN WHILE SO DROWSEY UNABLE TO OPEN EYES. PT APPEARS TO BE EXHIBITING DRUG SEEKING BEHAVIORS. ATTEMPTED TO HOLD OFF ON NORCO BY GIVING ULTRAM BUT PT SCREAMING OUT IN PAIN AND ULTRAM NOT DUE FOR 1 HOUR. WILL CONTINUE TO ATTEMPT TO REFRAIN FROM ADMINISTERING NARCS PTS REQUIRING O2 AND DECREASED RESPIRATORY DRIVE APPARENTLY DUE TO NARCOTOC USE. PT APPEARS TO BE SLEEPING COMFORTABLY AT THIS TIME WITH NO APPARENT SIGNS OF ACUTE DISTRESS. ABLE TO MAKE NEEDS KNOWN AND CALL LIGHT IN REACH.
[2018-10-03 05:03] LABS: BASOPHILS ABSOLUTE AUTO 0.03 K/mm3 (0.00-0.23); BASOPHILS PERCENT AUTO 0 % (0-2); EOSINOPHILS ABSOLUTE AUTO 0.29 K/mm3 (0.00-0.68); EOSINOPHILS PERCENT AUTO 3 % (0-6); Hematocrit 28.5 % (33.0-51.0); Hemoglobin 8.8 g/dL (11.5-16.0); IMMATURE GRAN ABSOLUTE AUTO 0.06 K/mm3 (0.00-0.10); IMMATURE GRAN PERCENT AUTO 1 % (0-1); LYMPHOCYTES ABSOLUTE AUTO 1.45 K/mm3 (0.84-5.20); LYMPHOCYTES PERCENT AUTO 14 % (21-46); MONOCYTES ABSOLUTE AUTO 0.57 K/mm3 (0.16-1.47); MONOCYTES PERCENT AUTO 6 % (4-13); Mean Corpuscular HGB 29.5 pg (26.0-34.0); Mean Corpuscular HGB Conc 30.9 g/dL (31.5-36.5); Mean Corpuscular Volume 96 fL (80-100); Mean Platelet Volume 9.2 fL (9.1-12.4); NEUTROPHILS PERCENT AUTO 77 % (41-73); Platelet Count 324 K/mm3 (150-400); RDW Standard Deviation 59.3 fL (35.1-46.3); Red Blood Cell Count 2.98 M/mm3 (3.80-5.20)
[2018-10-03 05:33] LABS: Albumin, Blood 2.3 g/dL (3.4-5.0); Anion Gap 6 mmol/L (6-16); Blood Urea Nitrogen 41 mg/dL (8-24); Bun/Creatinine Ratio 27.5 (12.0-20.0); CO2, Blood 27 mmol/L (21-32); Calcium, Blood 8.9 mg/dL (8.5-10.1); Chloride, Blood 102 mmol/L (98-108); Creatinine, Blood 1.49 mg/dL (0.40-1.00); Glomerular Filtration Rate 39 (60-); Glucose, Blood 204 mg/dL (70-99); Phosphorus, Blood 2.9 mg/dL (2.5-4.9); Potassium, Blood 4.9 mmol/L (3.5-5.5); Sodium, Blood 135 mmol/L (136-145)
--- NOTE | 2018-10-03 15:28 | NUR ---
attemtped to see, patient she is sleeping well. Will review with her her polst to confirm it is a family signature and update document.
--- NOTE | 2018-10-03 16:36 | NUR ---
PT SLEEPING RR EVEN AND UNLABORED. LLE ELEVATED ON 2 PILLOWS. APPEARS IN NO ACUTE DISTRESS AT THIS TIME.
--- NOTE | 2018-10-03 17:12 | NUR ---
SHIFT SUMMARY SLEPT ON/OFF THROUGHOUT DAY. NO SKIDDER VISIT TODAY. LEFT FOOT DRSG CLEAN DRY AND INTACT. PT STATES "THE PAIN IS NOT IN MY TOE MAINLY IN MY LEFT LEG". EATING AND DRINKING WELL. 1 PERSON ASSIST TO BEDSIDE COMMODE. INCONTINENT OF STOOL X1 TODAY OTHERWISE ABLE TO USE BSC. VSS. CONTACT ISOLATION. POSSIBLE DC TOMORROW IF CLEARED BY PODIATRY.
--- NOTE | 2018-10-04 04:02 | NUR ---
SHIFT SUMMARY NO APPARENT ACUTE CHANGES NOTED SO FAR THIS SHIFT. PT DID HAVE VISITORS EARLY ON IN THE SHIFT FOR A SHORT TIME. AFTER VISITORS LEFT PT WENT BACK TO SLEEP FAIRLY QUICKLY. PT DENIED PAIN SO FAR THIS SHIFT WHICH IS AN IMPROVEMENT FROM PREVIOUS NIGHT. INCREASED PTS O2 TO 3L FROM 2 L DUE TO PT STATS IN THE LOW 80S WHILE ASLEEP. PT DOES NOT CURRENTLY HAVE OXYGEN AT HOME AND HAS VOICED NOT WANTING TO GO HOME WITH OXYGEN. HOWEVER, PT UNABLE TO KEEP SATS ABOVE 90 AT THIS TIME WITHOUT OXYGEN. PT CONTINUES TO BE VERY FATIGUED AND EXTREMELY WEEK. PT STATES JUST NOT FEELING WELL. PT HAS APPEARED TO SLEEP COMFORTABLY MOST OF THE NIGHT WITH NO APPARENT SIGNS OF ACUTE DISTRESS. ABLE TO MAKE NEEDS KNOWN AND CALL LIGHT IN REACH.
[2018-10-04 09:35] LABS: BASOPHILS ABSOLUTE AUTO 0.03 K/mm3 (0.00-0.23); BASOPHILS PERCENT AUTO 0 % (0-2); EOSINOPHILS ABSOLUTE AUTO 0.05 K/mm3 (0.00-0.68); EOSINOPHILS PERCENT AUTO 0 % (0-6); Hematocrit 29.3 % (33.0-51.0); Hemoglobin 9.2 g/dL (11.5-16.0); IMMATURE GRAN ABSOLUTE AUTO 0.08 K/mm3 (0.00-0.10); IMMATURE GRAN PERCENT AUTO 1 % (0-1); LYMPHOCYTES ABSOLUTE AUTO 1.52 K/mm3 (0.84-5.20); LYMPHOCYTES PERCENT AUTO 14 % (21-46); MONOCYTES PERCENT AUTO 4 % (4-13); Mean Corpuscular HGB 30.1 pg (26.0-34.0); Mean Corpuscular HGB Conc 31.4 g/dL (31.5-36.5); Mean Corpuscular Volume 96 fL (80-100); Mean Platelet Volume 9.3 fL (9.1-12.4); NEUTROPHILS ABSOLUTE AUTO 9.19 K/mm3 (1.96-9.15); NEUTROPHILS PERCENT AUTO 82 % (41-73); Platelet Count 347 K/mm3 (150-400); RDW Coefficient Variation 16.7 % (11.7-14.2); RDW Standard Deviation 58.1 fL (35.1-46.3); Red Blood Cell Count 3.06 M/mm3 (3.80-5.20); White Blood Cell Count 11.27 K/mm3 (4.00-11.30)
[2018-10-04 09:55] LABS: Albumin, Blood 2.3 g/dL (3.4-5.0); Anion Gap 8 mmol/L (6-16); Blood Urea Nitrogen 42 mg/dL (8-24); Bun/Creatinine Ratio 33.6 (12.0-20.0); CO2, Blood 24 mmol/L (21-32); Calcium, Blood 8.9 mg/dL (8.5-10.1); Chloride, Blood 100 mmol/L (98-108); Creatinine, Blood 1.25 mg/dL (0.40-1.00); Glomerular Filtration Rate 47 (60-); Glucose, Blood 222 mg/dL (70-99); Phosphorus, Blood 2.4 mg/dL (2.5-4.9); Potassium, Blood 5.3 mmol/L (3.5-5.5); Sodium, Blood 132 mmol/L (136-145)
--- NOTE | 2018-10-04 11:28 | NUR ---
Pt visit this AM. Pt is resting in beds with her eyes closed upon arrival. Pt responds with gentle voice. Pt reports feeling cold. Pt states she is sleepy and closes her eyes. Confirmed current wishes with current POLST of file. Pt reports wishes are the same. She reports wishing to have chest compression and intubated if needed. Pt reports no other concerns. Delivered warm blanket and Pt closes her eyes again. Spoke with bedside nurse Carol and she reports no concerns. Palliative Care will remain available.
--- NOTE | 2018-10-04 16:02 | NUR ---
SHE HAS HAD LOTS OF DIARRHEA TODAY. SHE IS DISGUSTED WITH IT. NOTIFIED. SAMPLE SENT TO LAB FOR GI PANEL. IF NEGATIVE, I WILL CALL MD FOR IMODIUM OR THE LIKE. BRIAN DOESN'T WANT TO EAT FOR FEAR OF THE IMPENDINING URGENT INCONTINENT DIARRHEA. SHE WORKED WITH PT. NOW OT IS WITH HER.DRESSING CHANGED EARLIER TODAY ON HER L LATERAL CALF. HER L FOOT DRESSING D AND INTACT AND HER R HEEL DRESSING THE SAME.
--- NOTE | 2018-10-04 17:38 | NUR ---
SHE IS ASLEEP. SHE WORKED WELL WITH THERAPY TODAY. BOTH AND SAW HER TODAY. JUST CHANGED HER DRESSING ON HER L FOOT. SUTURES INTACT. HE REMINDED HER SHE NEEDS TO BE NWB FOR ABOUT 2 WEEKS. SHE TRIES BUT IS NOT VERY GOOD AT IT YET. POST OP SHOE AT BEDSIDE. SHE IS IMPULSIVE AT TIMES. NO DIARRHEA THE PAST 2 HRS. SPECIMAN SENT TO THE LAB FOR TESTING.
[2018-10-04 17:57] LABS: Adenovirus F 40/41 Not Detected (NOT DETECT); Astrovirus Not Detected (NOT DETECT); Campylobacter Sp Not Detected (NOT DETECT); Cryptosporidium Not Detected (NOT DETECT); Cyclospora Cayetanensis Not Detected (NOT DETECT); E. Coli O157 Not Detected (NOT DETECT); Entamoeba Histolytica Not Detected (NOT DETECT); Enteroaggregative E. coli-EAEC Not Detected (NOT DETECT); Enteropathogenic E. coli-EPEC Not Detected (NOT DETECT); Enterotoxigenic E. coli-ETEC Not Detected (NOT DETECT); Giardia Lamblia Not Detected (NOT DETECT); Norovirus GI/GII Not Detected (NOT DETECT); Plesiomonas Shigelloides Not Detected (NOT DETECT); Rotavirus A Not Detected (NOT DETECT); Salmonella Sp Not Detected (NOT DETECT); Sapovirus Not Detected (NOT DETECT); Shiga Toxin-prod E. coli-STEC Not Detected (NOT DETECT); Shigella/Enteroin E. coli-EIEC Not Detected (NOT DETECT); Vibrio Cholerae Not Detected (NOT DETECT); Vibrio Sp Not Detected (NOT DETECT); Yersinia Enterocolitica Not Detected (NOT DETECT)
--- NOTE | 2018-10-05 05:22 | NUR ---
SHIFT SUMMARY PT SLEPT WELL DURING THE NIGHT. MEDICATED X2 FOR PAIN THIS SHIFT. NO ACUTE EVENTS OR CHANGES NOTED, WILL CONTINUE TO MONITOR.
[2018-10-05 10:00] LABS: BASOPHILS ABSOLUTE AUTO 0.04 K/mm3 (0.00-0.23); BASOPHILS PERCENT AUTO 0 % (0-2); EOSINOPHILS ABSOLUTE AUTO 0.22 K/mm3 (0.00-0.68); EOSINOPHILS PERCENT AUTO 2 % (0-6); Hematocrit 29.7 % (33.0-51.0); Hemoglobin 9.1 g/dL (11.5-16.0); IMMATURE GRAN ABSOLUTE AUTO 0.07 K/mm3 (0.00-0.10); IMMATURE GRAN PERCENT AUTO 1 % (0-1); LYMPHOCYTES ABSOLUTE AUTO 1.26 K/mm3 (0.84-5.20); LYMPHOCYTES PERCENT AUTO 14 % (21-46); MONOCYTES ABSOLUTE AUTO 0.43 K/mm3 (0.16-1.47); MONOCYTES PERCENT AUTO 5 % (4-13); Mean Corpuscular HGB 29.4 pg (26.0-34.0); Mean Corpuscular HGB Conc 30.6 g/dL (31.5-36.5); Mean Corpuscular Volume 96 fL (80-100); Mean Platelet Volume 8.9 fL (9.1-12.4); NEUTROPHILS ABSOLUTE AUTO 6.98 K/mm3 (1.96-9.15); NEUTROPHILS PERCENT AUTO 78 % (41-73); Platelet Count 335 K/mm3 (150-400); RDW Coefficient Variation 16.6 % (11.7-14.2); RDW Standard Deviation 58.2 fL (35.1-46.3); Red Blood Cell Count 3.09 M/mm3 (3.80-5.20)
[2018-10-05 10:20] LABS: Albumin, Blood 2.2 g/dL (3.4-5.0); Anion Gap 1 mmol/L (6-16); Blood Urea Nitrogen 35 mg/dL (8-24); Bun/Creatinine Ratio 37.5 (12.0-20.0); CO2, Blood 29 mmol/L (21-32); Calcium, Blood 9.2 mg/dL (8.5-10.1); Chloride, Blood 103 mmol/L (98-108); Creatinine, Blood 0.93 mg/dL (0.40-1.00); Glomerular Filtration Rate >60 (60-); Glucose, Blood 223 mg/dL (70-99); Phosphorus, Blood 2.5 mg/dL (2.5-4.9); Potassium, Blood 5.2 mmol/L (3.5-5.5); Sodium, Blood 133 mmol/L (136-145)
[2018-10-05] MEDS ORDERED: DOXY100 PO (13:42)
[2018-10-05] MEDS ORDERED: Florastor250 MG PO (13:43)
[2018-10-05] MEDS ORDERED: TRAM50 PO (13:43)
--- NOTE | 2018-10-05 17:26 | NUR ---
DISCHARGED AT 1430 WITH BELONGINGS, PORTABLE O2 FROM [facility], 1 RX AND INSTRUCTIONS. POST OP BOOT ON L FOOT. DRESSINGS ALL INTACT. APPTS MADE. SHE IS ALSO SET UP WITH THE WOUND CLINIC.
== END 2018-10-05 15:36 | disposition home health service (06) | DRG 240 ==
LOC: ER 00:57 → MEDS 05:15 → PCU 05:15 → MEDS 05:17 → ICUE 09-30 09:28 → PCU 09-30 12:16 → MEDS 10-01 23:26 → ENPENDDIS 10-05 14:47 → MEDS 10-05 15:36
PROVIDERS: Emergency Medicine; Family Medicine; Podiatrist Foot & Ankle Surgery; ADMIT Hospitalist
PROC: B50C1ZZ Plain Radiography of Left Lower Extremity Veins using Low Osmolar Contrast (ICD-10-PCS; 2018-09-30)
PROC: 30233N1 Transfusion of Nonautologous Red Blood Cells into Peripheral Vein, Percutaneous Approach (ICD-10-PCS; 2018-09-30)
PROC: 0Y6W0Z1 Detachment at Left 4th Toe, High, Open Approach (ICD-10-PCS; 2018-10-02)
PROC: 0Y6Y0Z1 Detachment at Left 5th Toe, High, Open Approach (ICD-10-PCS; 2018-10-02)
PROC: 0Y6N0ZF Detachment at Left Foot, Partial 5th Ray, Open Approach (ICD-10-PCS; principal; 2018-10-02 07:00)
DX: E11.52 Type 2 diabetes mellitus with diabetic peripheral angiopathy with gangrene (principal); I96 Gangrene, not elsewhere classified; I50.32 Chronic diastolic (congestive) heart failure; I13.0 Hypertensive heart and chronic kidney disease with heart failure and stage 1 through stage 4 chronic kidney disease, or unspecified chronic kidney disease; N17.9 Acute kidney failure, unspecified; E87.1 Hypo-osmolality and hyponatremia; Z79.4 Long term (current) use of insulin; I25.10 Atherosclerotic heart disease of native coronary artery without angina pectoris; E66.01 Morbid (severe) obesity due to excess calories; E11.22 Type 2 diabetes mellitus with diabetic chronic kidney disease; N18.3 Chronic kidney disease, stage 3 (moderate); B95.62 Methicillin resistant Staphylococcus aureus infection as the cause of diseases classified elsewhere; D63.1 Anemia in chronic kidney disease; Z68.33 Body mass index [BMI] 33.0-33.9, adult; Z79.82 Long term (current) use of aspirin; Z79.84 Long term (current) use of oral hypoglycemic drugs
CPT/HCPCS: 0097U; 36415; 36430; 37225; 37228; 37232; 51701; 75625; 75710; 80053; 80069; 82607; 82728; 82746; 82947; 83540; 83550; 83605; 85025; 86850; 86900; 86901; 86923; 87040; 87081; 88305; 88311; 94761; 94762; 96365; 96375; 96376; 97161; 97166; 97530; 99152; 99153; 99284-25; A9270; A9270-GY; C1714; C1725; C1760; C1769; C1884; C1887; C1894; C2623; J1170; J1644; J1885; J2250; J2370; J2405; J2543; J2704; J2765; J3010; J7030; J7040; J7050; P9016; Q9967

== ENCOUNTER 2018-12-28 16:27 | Inpatient (IN) | payer MEDICARE, OTHER ==
[~2018-12-28] VITALS: Ht 172.7 cm; Wt 102.8 kg
[~2018-12-28 16:27] MED LIST changes: +DOXY100 PO; +Florastor250 MG PO; +Sulfamethoxazo1 EAC4; +TRAM50 PO
[2018-12-28 17:16] LABS: BASOPHILS ABSOLUTE AUTO 0.04 K/mm3 (0.00-0.23); BASOPHILS PERCENT AUTO 0 % (0-2); EOSINOPHILS ABSOLUTE AUTO 0.01 K/mm3 (0.00-0.68); EOSINOPHILS PERCENT AUTO 0 % (0-6); Hematocrit 37.1 % (33.0-51.0); IMMATURE GRAN ABSOLUTE AUTO 0.07 K/mm3 (0.00-0.10); IMMATURE GRAN PERCENT AUTO 1 % (0-1); LYMPHOCYTES ABSOLUTE AUTO 1.59 K/mm3 (0.84-5.20); LYMPHOCYTES PERCENT AUTO 13 % (21-46); MONOCYTES ABSOLUTE AUTO 0.63 K/mm3 (0.16-1.47); MONOCYTES PERCENT AUTO 5 % (4-13); Mean Corpuscular HGB 28.1 pg (26.0-34.0); Mean Corpuscular HGB Conc 29.6 g/dL (31.5-36.5); Mean Corpuscular Volume 95 fL (80-100); Mean Platelet Volume 9.9 fL (9.1-12.4); NEUTROPHILS ABSOLUTE AUTO 9.85 K/mm3 (1.96-9.15); NEUTROPHILS PERCENT AUTO 81 % (41-73); Platelet Count 403 K/mm3 (150-400); RDW Coefficient Variation 17.5 % (11.7-14.2); RDW Standard Deviation 60.5 fL (35.1-46.3); Red Blood Cell Count 3.92 M/mm3 (3.80-5.20); White Blood Cell Count 12.19 K/mm3 (4.00-11.30)
[2018-12-28 18:46] LABS: Bun/Creatinine Ratio 40.4 (12.0-20.0); Calcium, Blood 9.5 mg/dL (8.5-10.1); Creatinine, Blood 1.09 mg/dL (0.40-1.00); Potassium, Blood 4.6 mmol/L (3.5-5.5)
[2018-12-28] MEDS ORDERED: HYDR1TAB94 PO (20:12)
[2018-12-28] MEDS ORDERED: CLOP75 PO (20:27)
[2018-12-28] MEDS ORDERED: LOSARTAN POTAS100 MG PO (20:28)
[2018-12-28] MEDS ORDERED: Synthroid200 MCG PO (20:28)
[2018-12-28] MEDS ORDERED: SANTYL30 GM TOP (20:28)
[2018-12-28] MEDS ORDERED: NOVOLOG FL100 UNIT/1 SC (20:29)
[2018-12-28] MEDS ORDERED: METF500C PO (20:31)
[2018-12-28] MEDS ORDERED: NITR.4SL SL (20:34)
--- NOTE | 2018-12-29 03:00 | NUR ---
PATIENT ADMITTED FROM ER. WOUNDS ON BLE PHOTOGRAPHED AND PLACED IN CHART. IV PATENT. PATIENT AAOX4. SBA TO [facility] [place].
[2018-12-29 05:07] LABS: Hematocrit 33.4 % (33.0-51.0); Hemoglobin 9.9 g/dL (11.5-16.0); Mean Corpuscular HGB 27.9 pg (26.0-34.0); Mean Corpuscular HGB Conc 29.6 g/dL (31.5-36.5); Mean Corpuscular Volume 94 fL (80-100); Mean Platelet Volume 9.6 fL (9.1-12.4); Platelet Count 359 K/mm3 (150-400); RDW Coefficient Variation 17.6 % (11.7-14.2); Red Blood Cell Count 3.55 M/mm3 (3.80-5.20); White Blood Cell Count 12.86 K/mm3 (4.00-11.30)
[2018-12-29 05:36] LABS: Albumin, Blood 2.2 g/dL (3.4-5.0); Albumin/Globulin Ratio 0.4 (0.8-1.8); Bilirubin, Total 0.5 mg/dL (0.1-1.0); Bun/Creatinine Ratio 37.4 (12.0-20.0); Calcium, Blood 8.6 mg/dL (8.5-10.1); Creatinine, Blood 1.23 mg/dL (0.40-1.00); Globulin, Blood 4.9 g/dL (2.2-4.0); Total Protein, Blood 7.1 g/dL (6.4-8.2)
--- NOTE | 2018-12-29 07:30 | NUR ---
SHIFT SUMMARY PATIENT ADMITTED FROM ER. PICTURES OF BLE WOUNDS PLACED IN CHART. DRESSINGS APPLIED TO WOUNDS. AAOX4. UP SBA TO BSC. LEFT IV PATENT. REPORT GIVEN TO ERIN LOPEZ.
--- NOTE | 2018-12-29 14:06 | NUR ---
DR VILLAGRAN WAS IN PATIENT ROOM FOR CONSULT. DRESSING REAPPLIED.
--- NOTE | 2018-12-29 16:45 | NUR ---
SHIFT SUMMARY PATIENT HAS BEEN IN MUCH PAIN TO THE RLE/HEEL; MEDICATING PATIENT WITH PAIN MEDICATION PER EMAR WITH SOME EFFECTIVENESS. DR VILLAGRAN SAW THE PATIENT EARLIER TODAY; HE CALLED AND SAYS HE INTENDS TO TAKE PATIENT IN FOR I&D IN THE AM. PATIENT WILL BE NPO AT MIDNIGHT. PATIENT INFORMED OF THIS. PATIENT CONTINUES ON IV ABX WITHOUT S/SX OF ADVERSE REACTIONS NOTED OR REPORTED. PATIENT IS RESTING IN BED AT THIS TIME. WILL CONTINUE TO MONITOR AND PROVIDE CARE NEEDED.
[2018-12-30 03:42] LABS: BASOPHILS ABSOLUTE AUTO 0.04 K/mm3 (0.00-0.23); BASOPHILS PERCENT AUTO 0 % (0-2); EOSINOPHILS ABSOLUTE AUTO 0.06 K/mm3 (0.00-0.68); EOSINOPHILS PERCENT AUTO 1 % (0-6); IMMATURE GRAN ABSOLUTE AUTO 0.04 K/mm3 (0.00-0.10); IMMATURE GRAN PERCENT AUTO 0 % (0-1); LYMPHOCYTES ABSOLUTE AUTO 1.11 K/mm3 (0.84-5.20); LYMPHOCYTES PERCENT AUTO 11 % (21-46); MONOCYTES ABSOLUTE AUTO 0.59 K/mm3 (0.16-1.47); MONOCYTES PERCENT AUTO 6 % (4-13); Mean Corpuscular HGB 28.1 pg (26.0-34.0); Mean Platelet Volume 9.7 fL (9.1-12.4); NEUTROPHILS ABSOLUTE AUTO 8.71 K/mm3 (1.96-9.15); NEUTROPHILS PERCENT AUTO 83 % (41-73); Platelet Count 350 K/mm3 (150-400); RDW Coefficient Variation 17.9 % (11.7-14.2); RDW Standard Deviation 63.2 fL (35.1-46.3); White Blood Cell Count 10.55 K/mm3 (4.00-11.30)
[2018-12-30 03:48] LABS: Mean Corpuscular Volume 97 fL (80-100)
--- NOTE | 2018-12-30 03:52 | NUR ---
COULD HEAR THE PATIENT CALLING OUT FROM ROOM AT THE NURSES STATION. UPON ENTERING THE ROOM I VISUALIZED THE PATIENT STANDING IN ROOM AND CALLING FOR HER MOTHER. PATIENT WAS FOUND TO BE CONFUSED TO WHERE SHE WAS AT. PATIENT APPEARED VERY ANXIOUS AND BELIEVED SHE WAS IN [place]. PATEINT SAT BACK DOWN ON BED AND I HELPED HER TO REORIENT TO ROOM AND SITUATION. EXPLAINED THAT SHE WAS GOING TO BE HAVING A PROCEDURE TOMORROW ON THE WOUND ON HER FOOT TO WHICH SHE STATED SHE COULD REMEMBER. PATIENT THEN CALMED AND LAID BACK DOWN TO GO TO SLEEP. WILL CONTINUE TO MONITOR.
[2018-12-30 04:08] LABS: Bun/Creatinine Ratio 31.1 (12.0-20.0); Calcium, Blood 8.3 mg/dL (8.5-10.1); Creatinine, Blood 1.64 mg/dL (0.40-1.00); Potassium, Blood 4.7 mmol/L (3.5-5.5)
[2018-12-30 04:13] LABS: Vancomycin, Trough 30.1 ug/mL (5.0-10.0)
--- NOTE | 2018-12-30 05:43 | NUR ---
SHIFT SUMMARY PATIENT NPO AT MIDNIGHT. DRESSINGS ON BILATERAL FEET C/D/I. PATIENT UP SBA TO BSC. LEFT HAND IV PATENT AND DRESSING C/D/I. WILL CONTINUE TO MONITOR AND REPORT TO ONCOMING SHIFT.
--- NOTE | 2018-12-30 08:00 | NUR ---
PT. SITTING ON EDGE OF BED HALF ASLEEP. HOLLERING OUT "OW" "OW" NOTED SHE HAD HALF WAY REMOVED THE DRESSING OFF HER RIGHT FOOT. SHE SAID IT WAS TOO TIGHT AND HURT. ASSISTED HER BACK ON BED WHERE SHE IMMEDIATELY WENT TO SLEEP.
--- NOTE | 2018-12-30 09:59 | NUR ---
PT. SITTING UP ONCE AGAIIN CRYING, 50 OF FENTYNYL GIVEN IV. I THEN CLEANED THE WOUND ON HER RIGHT LATERAL FOOT WHERE THE AMPUTATION OF HER SMALL 5TH TOE WAS. I PUT THE SENTANYL ON THE AREA WITH VASELINE LEIGH COVERING AND REWRAPPED IT WITH KERLIX AND HELD IN PLACE BY OLIVIA WRAP. PT. SOUND ASLEEP WHEN I LEFT THE ROOM.
--- NOTE | 2018-12-30 11:35 | NUR ---
[facility] CAME AND GOT PATIENT FOR A PROCEDURE WITH DR. SOTOMAYOR. WENT VIA HOSPITAL BED. WILL TRANSFER TO EITHER PCU OR ICU AFTER PROCEDURE.
--- NOTE | 2018-12-30 16:15 | NUR ---
REPORT CALLED TO SHANEL RDZ RN IN ICU WHO WILL BE GETTING BRIAN INTO ICU-5 AFTER HER PROCEDURE.PT. TURNED OVER TO SATINDER MAYA RN
--- NOTE | 2018-12-30 17:24 | NUR ---
PT TO ROOM ICU 5 FROM CARDIOLOGY TECH AT 1655. REPORT FROM MEDICAL RN AND CARDIOLOGY TECH RN. PT S/P PERIPHERAL c MCGLADE. PT ARRIVES PCU STATUS. DROWSY, MOANS c VERBAL STIMULI. AIRWAY PATENT. PLACED ON 2L O2 VIA NC. VSS. LEFT GROIN ACCESS VERIFIED c CARDIOLOGY TECH RN. SOFT, NO HEMATOMA, CLEAR OCCLUSIVE DRESSING IN PLACE. NO OOZING NOTED. PER CARDIOLOGY TECH STAFF ANGIOSEAL IN PLACE. PT IN SUPINE POSITION. RIGHT FOOT, RED, WARM TO TOUCH. DOPPLER PULSES PRESENT BILATERALLY. LEFT FOOT PALE, COOL. BILATERAL 5TH TOE AMPUTATIONS c TUNNELING WOUNDS, FOUL SMELLING. LEFT FOOT c PURLENT DRAINAGE ON DRESSING. DR VILLAGRAN TO TAKE PT TO OR FOR I&D THIS PM. MAINTAIN NPO STATUS. CALL LIGHT IN REACH. WILL CONTINUE TO MONITOR.
--- NOTE | 2018-12-30 19:00 | NUR ---
ASSUMED CARE DR VILLAGRAN AND DR HADDAD INTO SEE PT. CONSENTS DONE. SANCHEZ CATH 16 FR PLACED. RIGHT GROIN STABLE, SOFT TO PALPATION. NO BLEEDING OR HEMATOMA NOTED. PT TAKEN TO OR FOR I&D OF RIGHT FOOT BY DR VILLAGRAN
[2018-12-30 19:24] LABS: Source, Urine Catheter
[2018-12-30 19:28] LABS: Bilirubin, Urine Neg (Neg); Blood, Urine Neg (Neg); Glucose Qualitative, Urine Neg (Neg); Ketones, Urine Neg (Neg); Leukocyte Esterase, Urine Neg (Neg); Nitrite, Urine Neg (Neg); Protein, Urine 2+ (Neg); Urobilinogen, Urine NORM (Normal)
[2018-12-30 19:31] LABS: Appearance, Urine Clear (Clear); Color, Urine Yellow (P-Yellow)
[2018-12-30 19:39] LABS: Amorphous Mod (0-Heavy); Bacteria Mod /hpf; Red Blood Cells, Urine Not Seen /hpf (0-2); Squamous Epithelial Cells Mod /hpf (Few); White Blood Cells, Urine 0-2 /hpf (0-5)
--- NOTE | 2018-12-30 20:08 | NUR ---
ASSESSMENT PT RETURNED FROM OR VIA BED WITH DR HADDAD AND WING COVERER. REPORT RECEIVED AT BEDSIDE. PT OPENS EYES TO VERBAL STIMULI, BUT BACK TO SLEEP QUICKLY. DRSG TO RIGHT FOOT CD&I WITH WOUND VAC RUNNING. BRICK CAP REFILL NOTED TO GREAT TOE ON RIGHT FOOT. LEFT FOOT WITH DOPPLER PULSES. LEFT GROIN STABLE SOFT TO PALPATION, NO BLEEDING OR HEMATOMA NOTED. DRSG INTACT. LUNGS CLEAR BUT DECREASED IN THE BASES ON 2 LITERS O2 VIA NC. RESP EVEN AND NONLABORED. PT ABLE TO TAKE DEEP BREATHS AND COUGH WHEN ASKED. HEART RATE REGULAR. BP STABLE. IV 20G TO LEFT HAND WITH LR AT TKO FROM OR. SANCHEZ CATH PATENT AND DRAINING CLEAR YELLOW URINE.
--- NOTE | 2018-12-30 21:15 | NUR ---
PAIN PT CRYING OUT IN PAIN STATES,"MY FOOT HURTS /" MED WITH FENTANYL 50 MCQ. BLOOD GLUCOSE 63, HELD LANTUS
--- NOTE | 2018-12-30 21:23 | NUR ---
BLOOD GLUCOSE PT GIVEN 1/2 AMP D50 FOR BLOOD GLUCOSE OF 63
--- NOTE | 2018-12-30 21:38 | NUR ---
CALL TO HOSPITALIST CALL TO DARBY ORTEZ REGARDING BLOOD GLUCOSE 63 AND OBTAINING IV FLUID. ALSO REGARDING PAIN CONTROL. ORDERS OBTAINED
--- NOTE | 2018-12-30 23:38 | NUR ---
PAIN PT YELLING OUT,"NURSE MY FOOT HURTS" MED WITH FENTANYL 50 MCQ. PT NOT USING CALL LIGHT
--- NOTE | 2018-12-31 02:02 | NUR ---
PAIN PT AWAKE MOVING SELF IN BED. C/O PAIN TO RIGHT FOOT 09/29 PT STATES,"IT REALLY HURTS". MED WITH FENTANYL 50 MCQ. PT REPOSITIONED IN BED. LEFT GROIN STABLE. PT ASSISTING WITH TURNING. ICE CHIPS GIVE.
[2018-12-31 05:07] LABS: BASOPHILS ABSOLUTE AUTO 0.03 K/mm3 (0.00-0.23); BASOPHILS PERCENT AUTO 0 % (0-2); EOSINOPHILS ABSOLUTE AUTO 0.06 K/mm3 (0.00-0.68); EOSINOPHILS PERCENT AUTO 1 % (0-6); Hemoglobin 8.9 g/dL (11.5-16.0); IMMATURE GRAN ABSOLUTE AUTO 0.04 K/mm3 (0.00-0.10); IMMATURE GRAN PERCENT AUTO 0 % (0-1); LYMPHOCYTES ABSOLUTE AUTO 1.04 K/mm3 (0.84-5.20); LYMPHOCYTES PERCENT AUTO 9 % (21-46); MONOCYTES ABSOLUTE AUTO 0.74 K/mm3 (0.16-1.47); MONOCYTES PERCENT AUTO 6 % (4-13); Mean Corpuscular HGB 28.2 pg (26.0-34.0); Mean Corpuscular HGB Conc 28.7 g/dL (31.5-36.5); Mean Corpuscular Volume 98 fL (80-100); Mean Platelet Volume 9.4 fL (9.1-12.4); NEUTROPHILS ABSOLUTE AUTO 10.29 K/mm3 (1.96-9.15); NEUTROPHILS PERCENT AUTO 84 % (41-73); Platelet Count 328 K/mm3 (150-400); RDW Coefficient Variation 17.6 % (11.7-14.2); RDW Standard Deviation 63.4 fL (35.1-46.3); Red Blood Cell Count 3.16 M/mm3 (3.80-5.20)
--- NOTE | 2018-12-31 05:20 | NUR ---
BEDSIDE SWALLOW EVAL PT AWAKE AND ABLE TO FOLLOW INSTRUCTIONS. BEDSIDE SWALLOW EVAL DONE WITHOUT ANY DIFFICULTY. SYNTHROID GIVEN WITH WATER WITHOUT DIFFICULTY. PT MED WITH FENTANYL 50 MCQ FOR RIGHT FOOT PAIN. PT REPOSITIONED
[2018-12-31 05:32] LABS: Anion Gap 7 mmol/L (6-16); Blood Urea Nitrogen 38 mg/dL (8-24); Bun/Creatinine Ratio 31.4 (12.0-20.0); CO2, Blood 27 mmol/L (21-32); Calcium, Blood 8.7 mg/dL (8.5-10.1); Chloride, Blood 104 mmol/L (98-108); Creatinine, Blood 1.21 mg/dL (0.40-1.00); Glomerular Filtration Rate 49 (60-); Glucose, Blood 100 mg/dL (70-99); Potassium, Blood 4.3 mmol/L (3.5-5.5); Sodium, Blood 138 mmol/L (136-145); Vancomycin, Random 16.4 ug/mL
--- NOTE | 2018-12-31 05:57 | NUR ---
SHIFT SUMMARY PT RESTING QUIETLY. WENT TO OR EARLY IN THE NIGHT FOR I&D OF RIGHT FOOT. AMPUTATION OF THE RIGHT 4TH AND 5TH DIGIT DONE WITH A WOUND VAC APPLIED. NEW DRSG APPLIED TO LEFT FOOT. RECOVER DONE, VSS. PT MED WITH FENTANYL 50 MCQ FOR PAIN DURING THE NIGHT WITH GOOD RESULTS. PT TURNED Q2HR. SANCHEZ CATH PLACED BEFORE SURGERY. FREQUENT REORIENTATION DURING THE NIGHT. REPORT TO ON COMING NURSE
--- NOTE | 2018-12-31 07:15 | NUR ---
START OF SHIFT NOTE: RECEIVED REPORT FROM SHIELA BEGUM RN, ASSUMED CARE, PATIENT IS IN ISOLATION FOR MRSA, DROWSY BUT AROUSEABLE, OPENS EYES TO COMMAND, PATIENT KNOWS WHERE SHE IS, ORIENTED TO SELF, PLACE, SITUATION, VAGUE ON DATE/TIME, BG 88, NO COVERAGE NEEDED, PATIENT HAS CLEAR BUT DIMINISHED LUNG SOUNDS, NSR, BOWEL TONES ARE PRESENT IN ALL FOUR QUADRANTS, LEFT PEDAL PULSE PALPABLE WITH DOPPLER ONLY, VERY FAINT AND THREADY, MULTIPLE WOUNDS ON LEFT LOWER EXTREMITY COVERED WITH MEPILEX, LEFT GROIN SITE ACCESS SITE, NO BLEEDING, SOFT, NONTENDER, NO HEMATOMA, SANCHEZ CATHETER IN PLACE, RIGHT LOWER EXTREMITY HAS FOOT WRAPPED WITH OLIVIA WRAP UNABLE TO PALPATE PEDAL PULSES, PATIENT HAS WOUND VAC ATTACHED TO RIGHT FOOT, IVF INFUSING, ALSO ANTIBIOTICS AT THIS TIME, CALL LIGHT IN REACH, WILL CONTINUE TO MONITOR.
--- NOTE | 2018-12-31 08:32 | NUR ---
PATIENT RECEIVED 50 MCG OF FENTANY FOR 8/10 PAIN IN RLE, WILL CONTINUE TO MONITOR, PATIENT ALSO TOOK ORAL AM MEDICATION WITH SIPS OF WATER, NO PROBLEM SWALLOWING, CALL LIGHT IN REACH, WILL CONTINUE TO MONITOR.
--- NOTE | 2018-12-31 11:25 | NUR ---
DR. VILLAGRAN IN TO SEE PATIENT, NO NEW ORDERS RECEIVED, OK WITH DR. VILLAGRAN TO START DIET UP AGAIN, DR. FRIAS CALLED AND DIET ORDERS RECEIVED.
--- NOTE | 2018-12-31 12:15 | NUR ---
DR. FRIAS IN TO SEE PATIENT, NO NEW ORDERS RECEIVED.
--- NOTE | 2018-12-31 12:31 | NUR ---
PATIENT RESPOSITIONED AND BOOSTED UP IN BED, EATING LUNCH WITH GOOD APPETITE.
--- NOTE | 2018-12-31 14:05 | NUR ---
PATIENT RECEIVED ANOTHER 50 MCG OF FENTANYL FOR 7/10 PAIN IN RLE, WILL CONTINUE TO MONITOR.
--- NOTE | 2018-12-31 15:29 | NUR ---
PATIENT'S DAUGHTER CALLED AND UPDATE ON PATIENT CONDITION WAS PROVIDED VIA PHONE.
--- NOTE | 2018-12-31 16:47 | NUR ---
PATIENT IS NOW SURGICAL STATUS WITH TELEMETRY.
--- NOTE | 2018-12-31 17:51 | NUR ---
SHIFT SUMMARY REPORT: NO ACUTE EVENTS DURING THIS SHIFT, PATIENT SLEPT MOST OF THE TIME, EASILY AWOKEN, IS NOW ON A DIABETIC DIET AND EATS WITH GOOD APPETITE, DR. VILLAGRAN IN, DRESSING ON RLE REMOVED AND IT LOOKS GOOD, WOUND VAC REMAINS IN PLACE, PATIENT RECEIVED FENTANYL 50 MCG IV TWICE DURING THIS SHIFT, LOW GRADE TEMPERATURE BETWEEN 99.3 AND 99.8, ON ANTIBIOTICS, VANCOMYCIN AND CEFEPIME, SANCHEZ CATHETER IN PLACE, PATIENT MAKING ADEQUATE URINE, NO BM DURING THIS SHIFT, VSS, CALL LIGHT IN REACH, WILL CONTINUE TO MONITOR AND GIVE REPORT TO ONCOMING NOC SHIFT.
--- NOTE | 2018-12-31 18:02 | NUR ---
ATTEMPTED TO CALL REPORT TO LOLY ALVARADO RN, ON SURGICAL FLOOR, SHE WILL CALL BACK.
--- NOTE | 2018-12-31 18:20 | NUR ---
SECOND ATTEMPT TO CALL REPORT, LOLY WILL CALL BACK SOON SHE IS DONE WITH STAFFING.
--- NOTE | 2018-12-31 18:28 | NUR ---
REPORT CALLED TO LOLY ALVARADO RN, ON SURGICAL FLOOR, WILL TRANSFER PATIENT TO ROOM 228 VIA BED.
[2019-01-01 04:19] LABS: BASOPHILS ABSOLUTE AUTO 0.03 K/mm3 (0.00-0.23); BASOPHILS PERCENT AUTO 0 % (0-2); EOSINOPHILS ABSOLUTE AUTO 0.13 K/mm3 (0.00-0.68); EOSINOPHILS PERCENT AUTO 1 % (0-6); Hematocrit 28.7 % (33.0-51.0); Hemoglobin 8.4 g/dL (11.5-16.0); IMMATURE GRAN ABSOLUTE AUTO 0.07 K/mm3 (0.00-0.10); IMMATURE GRAN PERCENT AUTO 1 % (0-1); LYMPHOCYTES ABSOLUTE AUTO 1.22 K/mm3 (0.84-5.20); LYMPHOCYTES PERCENT AUTO 11 % (21-46); MONOCYTES ABSOLUTE AUTO 0.66 K/mm3 (0.16-1.47); MONOCYTES PERCENT AUTO 6 % (4-13); Mean Corpuscular HGB 28.4 pg (26.0-34.0); Mean Corpuscular HGB Conc 29.3 g/dL (31.5-36.5); Mean Corpuscular Volume 97 fL (80-100); Mean Platelet Volume 9.5 fL (9.1-12.4); NEUTROPHILS ABSOLUTE AUTO 9.31 K/mm3 (1.96-9.15); NEUTROPHILS PERCENT AUTO 82 % (41-73); Platelet Count 314 K/mm3 (150-400); RDW Coefficient Variation 17.5 % (11.7-14.2); RDW Standard Deviation 61.6 fL (35.1-46.3); Red Blood Cell Count 2.96 M/mm3 (3.80-5.20); White Blood Cell Count 11.42 K/mm3 (4.00-11.30)
[2019-01-01 04:33] LABS: Anion Gap 4 mmol/L (6-16); Blood Urea Nitrogen 29 mg/dL (8-24); Bun/Creatinine Ratio 29.5 (12.0-20.0); CO2, Blood 26 mmol/L (21-32); Calcium, Blood 8.6 mg/dL (8.5-10.1); Chloride, Blood 104 mmol/L (98-108); Creatinine, Blood 0.98 mg/dL (0.40-1.00); Glomerular Filtration Rate >60 (60-); Glucose, Blood 207 mg/dL (70-99); Magnesium, Blood 1.8 mg/dL (1.6-2.4); Potassium, Blood 4.6 mmol/L (3.5-5.5); Sodium, Blood 134 mmol/L (136-145); Vancomycin, Random 16.4 ug/mL
--- NOTE | 2019-01-01 07:23 | NUR ---
SUMMARY NO ACUTE CHANGES THROUGH THE NIGHT. WOUND VAC REMAINS IN PLACE. BLE ELEVATED ON PILLOWS, PT MEDICATED FOR PAIN PRN, FENTANYL HELD THIS AM DUE TO SLEEPINESS. PT WILL WAKE UP AND ANSWER QUESTIONS APPROPRIATLEY STATE SHE IS IN PAIN AND ASK FOR MEDICATION AND THEN FALL BACK INTO A DEEP SLEEP SOON AFTER I LEAVE THE ROOM. SHE APPEARS TO BE COMFORTABLE WHILE SLEEPING, RESP REMAIN UNLABORED, VSS. CALL LIGHT IN REACH. REPORT GIVEN TO DAY RN.
--- NOTE | 2019-01-01 17:17 | NUR ---
SHIFT SUMMARY PT HAS BEEN RESTING IN BED MUCH OF THE DAY. TOLERATING FOOD AND FLUIDS. SANCHEZ IS IN PLACE, PATENT, OFF FLOOR. DRESSINGS ON LEFT FOOT CHANGED BY RN TODAY. SURGICAL DRESSING R FOOT CDI. PT HAS REPORTED MINIMAL PAIN TODAY, REQUESTED PAIN MED ONCE. O2 STABLE ON RA.
--- NOTE | 2019-01-02 06:41 | NUR ---
SUMMARY NO ACUTE CHANGES NOTED THROUGH THE NIGHT. WOUND VAC REMAINS IN PLACE. PAIN MINIMAL, CONTROLLED WITH PO TYLENOL. PT DANGLED AT BEDSIDE A FEW TIMES. PT ENC TO ELEVATE LEGS WHILE SLEEPING. PT IS TOLERATING PO INTAKE. CALL LIGHT IN REACH. BED ALARM IS ON FOR SAFETY.
[2019-01-02 08:48] LABS: Vancomycin, Trough 15.9 ug/mL (5.0-10.0)
--- NOTE | 2019-01-02 16:32 | NUR ---
SHIFT SUMMARY PT TOLERATING FOOD AND PO FLUIDS WELL. SANCHEZ IN PLACE AND DRAINING. PAIN MANAGED WITH MED PRN. DRESSINGS ON LEFT FOOT CHANGED TODAY BY RN. WOUND VAC IN PLACE AND FUNCTIONING. FOAM COMPRESSED. PT REPOSITIONS SELF WELL IN BED. ASSISTED WITH ADL'S PRN. FAMILY WAS IN TO SEE PT TODAY.
[2019-01-03 01:10] LABS: Adenovirus F 40/41 Not Detected (NOT DETECT); Astrovirus Not Detected (NOT DETECT); Campylobacter Sp Not Detected (NOT DETECT); Cryptosporidium Not Detected (NOT DETECT); Cyclospora Cayetanensis Not Detected (NOT DETECT); E. Coli O157 Not Detected (NOT DETECT); Entamoeba Histolytica Not Detected (NOT DETECT); Enteroaggregative E. coli-EAEC Not Detected (NOT DETECT); Enteropathogenic E. coli-EPEC Not Detected (NOT DETECT); Enterotoxigenic E. coli-ETEC Not Detected (NOT DETECT); Giardia Lamblia Not Detected (NOT DETECT); Norovirus GI/GII Not Detected (NOT DETECT); Plesiomonas Shigelloides Not Detected (NOT DETECT); Rotavirus A Not Detected (NOT DETECT); Salmonella Sp Not Detected (NOT DETECT); Sapovirus Not Detected (NOT DETECT); Shiga Toxin-prod E. coli-STEC Not Detected (NOT DETECT); Shigella/Enteroin E. coli-EIEC Not Detected (NOT DETECT); Vibrio Cholerae Not Detected (NOT DETECT); Vibrio Sp Not Detected (NOT DETECT); Yersinia Enterocolitica Not Detected (NOT DETECT)
--- NOTE | 2019-01-03 01:56 | NUR ---
PT GI PANEL CAME BACK POSITIVE FOR C-DIFF.
--- NOTE | 2019-01-03 03:39 | NUR ---
SHIFT SUMMARY PT HAD DISCOMFORT NOTED AND TX PER EMAR. PT SANCHEZ DRAINING WELL AND WOUND VAC IS OPERATIONAL. PT HAD LARGE BM AND SPECIMEN SENT. RESULTS OF GI PANEL POSITIVE FOR C-DIFF. PT WAS UP LATE WATCHING TV. PT CURRENTLY SLEEPING AND BREATHING EASY. CALL LIGHT IN REACH.
[2019-01-03 05:33] LABS: Anion Gap 7 mmol/L (6-16); Blood Urea Nitrogen 24 mg/dL (8-24); Bun/Creatinine Ratio 29.1 (12.0-20.0); CO2, Blood 23 mmol/L (21-32); Calcium, Blood 8.6 mg/dL (8.5-10.1); Chloride, Blood 105 mmol/L (98-108); Creatinine, Blood 0.83 mg/dL (0.40-1.00); Glomerular Filtration Rate >60 (60-); Glucose, Blood 114 mg/dL (70-99); Potassium, Blood 4.8 mmol/L (3.5-5.5); Sodium, Blood 135 mmol/L (136-145)
--- NOTE | 2019-01-03 07:05 | NUR ---
recvd report from previous RN Ramses with asa Mejía. This RN will follow asa. pt on bedrest, call lights within reach, bed rails up x 2, bed in lowest position
--- NOTE | 2019-01-03 12:34 | NUR ---
PT EATING LUNCH AND CONVERSING WITH VISITOR AT THIS TIME.
--- NOTE | 2019-01-03 13:11 | NUR ---
01/03/19 1311 Pap,Den D CORECTION PROCEDURE
--- NOTE | 2019-01-03 16:45 | NUR ---
dr anthony office called [facility] request for directions for wound vac change schedule, to verify if would like to visualize wound prior to change. Dr Anthony provided orders via his chief medical officer to leave all wound vac dressing/bandage in place until Dr Anthony rounds on pt tomorrow after clinic hours. will notify ERIN Mejía
--- NOTE | 2019-01-03 18:37 | NUR ---
SHIFT SUMMARY PT A&OX4 WITH VSS T/O SHIFT. WOUND VAC ON R FOOT IN PLACE AND DRAINING SS W/ DRESSING C/D/I. DRESSING NOT CHANGED TODAY PER DR. VILLAGRAN- HE WILL BE IN TOMORROW TO CHANGE IT. MEPILEX DRESSINGS 2X ON LLE C/D/I WITH OLIVIA WRAP IN PLACE. PAIN MANAGED PER EMAR. REPORTS 2 SOLID BM TODAY. SANCHEZ REMOVED THIS EVENING. ABLE TO REPOSITION SELF IN BED AND USES CALL LIGHT APPROPRIATELY.
--- NOTE | 2019-01-04 06:01 | NUR ---
PT VSS T/O NIGHT. PT HAD INC IN PAIN THIS KAMALA, REP RELIEF W/1X DOSE OF 0.5MG IV DILAUDID. WOUND VAC IN PLACE DRNG SS DRNG, GOOD SEAL AND SX MAINTAINED. CIRC CHECKS WNL, PT REP NO CHANGES IN SENSATION. PT UP TO BSC, VOIDING URINE W/O DIFFICULTY AFTER SANCHEZ D/C'D. PT HAD NO BM THIS SHIFT, NO C/O N/V, ORAL VANCO CONT PER ORDERS. PLAN FOR WOUND VAC DRESSIGN CHANGE TODAY BY MD. WILL CONT TO MONITOR UNTIL REP GIVEN TO ONCOMING RN.
[2019-01-04 09:38] LABS: BASOPHILS ABSOLUTE AUTO 0.04 K/mm3 (0.00-0.23); BASOPHILS PERCENT AUTO 0 % (0-2); EOSINOPHILS ABSOLUTE AUTO 0.12 K/mm3 (0.00-0.68); EOSINOPHILS PERCENT AUTO 1 % (0-6); Hematocrit 32.4 % (33.0-51.0); Hemoglobin 9.3 g/dL (11.5-16.0); IMMATURE GRAN ABSOLUTE AUTO 0.11 K/mm3 (0.00-0.10); IMMATURE GRAN PERCENT AUTO 1 % (0-1); LYMPHOCYTES ABSOLUTE AUTO 1.08 K/mm3 (0.84-5.20); LYMPHOCYTES PERCENT AUTO 9 % (21-46); MONOCYTES ABSOLUTE AUTO 0.57 K/mm3 (0.16-1.47); MONOCYTES PERCENT AUTO 5 % (4-13); Mean Corpuscular HGB 27.3 pg (26.0-34.0); Mean Corpuscular HGB Conc 28.7 g/dL (31.5-36.5); Mean Corpuscular Volume 95 fL (80-100); Mean Platelet Volume 9.5 fL (9.1-12.4); NEUTROPHILS ABSOLUTE AUTO 10.65 K/mm3 (1.96-9.15); NEUTROPHILS PERCENT AUTO 85 % (41-73); Platelet Count 394 K/mm3 (150-400); RDW Coefficient Variation 17.8 % (11.7-14.2); RDW Standard Deviation 62.1 fL (35.1-46.3); Red Blood Cell Count 3.41 M/mm3 (3.80-5.20); White Blood Cell Count 12.57 K/mm3 (4.00-11.30)
[2019-01-04 09:48] LABS: Anion Gap 3 mmol/L (6-16); Blood Urea Nitrogen 22 mg/dL (8-24); Bun/Creatinine Ratio 25.4 (12.0-20.0); CO2, Blood 29 mmol/L (21-32); Calcium, Blood 9.3 mg/dL (8.5-10.1); Chloride, Blood 106 mmol/L (98-108); Creatinine, Blood 0.87 mg/dL (0.40-1.00); Glomerular Filtration Rate >60 (60-); Glucose, Blood 109 mg/dL (70-99); Potassium, Blood 5.1 mmol/L (3.5-5.5); Sodium, Blood 138 mmol/L (136-145); Vancomycin, Trough 15.4 ug/mL (5.0-10.0)
--- NOTE | 2019-01-04 14:32 | NUR ---
DR. ALFARO IN TO SEE PT DR. ALFARO IN TO SEE PT AND CHANGE WOUND VAC DRESSING ON RIGHT FOOT. PLAN TO REPLACE WOUND VAC DRESSING.
--- NOTE | 2019-01-04 14:34 | NUR ---
DR. ALFARO NOTIFIED DR. ALFARO NOTIFIED OF BLEEDING ON RIGHT FOOT DESPITE 15MIN OF COMPRESSION TO SITE; WHICH SOAKED THROUGH 5 PACKS OF GAUZE AND IS PULSATING AT THIS TIME. STATES HE WILL COME IN NOW TO SEE PT.
--- NOTE | 2019-01-04 15:02 | NUR ---
SIGNIFICANT BLEEDING FROM R FOOT PT'S R FOOT BEGAN TO BLEED PROFUSELY AFTER WOUND VAC WAS REMOVED BY RAILWAY YARD ASSISTANT FOR DRESSING CHANGE. SOAKED THROUGH 7-8 PACKAGES OF 4X4 GAUZE WELL THREE LARGE CLOTS ON CHUCKS PAD BEFORE ABLE TO STOP BLEEDING. CALLED DR JOHNSON BACK TO ROOM, BLEEDING HAD SUBSIDED WHEN HE ARRIVED. PLACED NONADHERENT GAUZE, PKG OF 4X4 GAUZE AND OLIVIA WRAP TO AREA. NOTIFIED DR PAZ PER DR JOHNSON REQUEST. DR PAZ STATED WILL BE TO ROOM TO SEE PT SHORTLY. VSS. NOW RESTING W/EYES CLOSED.
--- NOTE | 2019-01-04 18:00 | NUR ---
Spiritual Care intial note: Babs was crying when I entered room.. Told me her pain was poorly controlled. I informed RN and stayed with Babs. Provided calm presence, distraction form pain through conversation, comfort through touch, and assurance of care. Advised speaking to MD about adjusting RX. Babs is not jainism, but responded well to comfort. I will remain available.
--- NOTE | 2019-01-04 18:05 | NUR ---
SHIFT SUMMARY PT A&OX4 WITH VSS STABLE T/O SHIFT TODAY. WOUND VAC DRESSING CHANGED PREVIOUSLY CHARTED. INTERMITTENT PAIN CONTROL PER EMAR WITH ONE TIME NEEDED IV DOSE DURING DRESSING CHANGE. MEPILEX DRESSINGS ON LLE/ FOOT 4X AND OLIVIA WRAP CHANGED TODAY; YELLOW DRAINAGE NOTED. TOLERATING REGULAR DIET WELL. TEARFUL AT TIMES BUT COMPLIANT. UP TO BSC THIS EVENING WITH 1 ASSIST. HAS CALL LIGHT WITHIN REACH AND USES IT APPROPRIATLEY.
--- NOTE | 2019-01-04 23:45 | NUR ---
GOT OOB TO USE BSC, FOOT STARTED TO BLEED. OLIVIA WRAP REMOVED AND BLEEDING NOTED. GUAZE APPLIED ALONG WITH PRESSURE TO PULSE POINTS UNTIL HOMEOSTASIS WAS MAINTAINED. ABD PAD PLACED AND COVERED WITH OLIVIA WRAP. DENIES FURTHER NEEDS AT THIS TIME. SAFETY MEASURES IN PLACE. WILL CONTINUE TO MONITOR.
--- NOTE | 2019-01-05 04:49 | NUR ---
SHIFT SUMMARY HAS HAD TROUBLE WITH PAIN SINCE START OF SHIFT. CONTINUE TO STAGGAR PAIN MEDS TO GAIN MUCH PAIN MANAGEMENT POSSIBLE. HOMEOSTASIS MAINTAINED IN LLE FIFTH DIGIT. EXTREMITY STILL ELEVATED ON PILLOWS ABOVE HEART LEVEL. DENIES FURTHER NEEDS AT THIS TIME. SAFETY MEASURES IN PLACE. WILL GIVE HAND OFF TO ONCOMING SHIFT USING SBAR.
--- NOTE | 2019-01-05 13:00 | NUR ---
Initial palliative care consult: Babs is a 53 year old diabetic with a recent amputation of her 4th and 5th toes on her right foot. She states that she has had nine surgeries in the past year. She had a cardiac surgery the day after [place] last year. She reports that she has had multiple foot surgeries/procedures since that time. She has a history of diabetes for the past 25 years, CAD, PVD, CHF, neuropathy, HTN, obesity, breast cancer about 5 years ago and chronic foot wounds. She lives with a room mate, who happens to also be admitted to [facility] at this time, her ex- and multiple cats and a bird. She reports she is thinking about moving to a new place as she has a cat allergy. Her daughter Chacha, also helps with cooking and cleaning when she is available. Chacha has 3 children under the age of 5, Babs reports two of the three kids are autistic. Babs states her ex- helps with her ADLs when Chacha isn't available. She feels well supported at home. She was receiving home health for wound care from [facility] prior to her admission. She is frustrated that the field trainer that did her surgery was not the field trainer that came to visit her post op. She had some post op bleeding and currently does not have the wound vac on. She is receiving IV antibiotics. She is waiting to see the hospitalist and field trainer today to see what the plan for her care going forward will be. She is willing to go to rehab if needed or home with . She reports at home she wasn't able to ambulate very much due to sore on her feet. She is currently laying in bed and doesn't know what type of restrictions for mobility she will have. She rates her pain 4/10 to her right foot surgical site. She was offered pain medication during my visit but declined at that time. She receives neurontin, norco and dilaudid. Her right foot is elevated on a pillow with a dressing that is D&I. She denies other symptoms at this time. Babs states she has a continuous blood glucose monitoring system that is supposed to be applied to her arm at her house. She has not started using this system yet. She reports she has been able to get her Hgb A1C down from a 12 to an 8. She monitors what she eats and takes insulin to manage her DM. Plan for discharge TBD at this time. It is likely that she will need IV antibiotics and physical therapy services at the time of discharge. Nursing states they are planning to contact hospitalist for further orders re: pain management and the field trainer for determining at POC going forward. Babs confirmed her wishes for a full code status. POLST form is on file in the EMR and still reflects her wishes. She states her POLST form was filled out when she was going through her breast cancer treatment. PC will continue to follow for symptom management and disease process education.
--- NOTE | 2019-01-05 14:06 | NUR ---
dr garcia cell called message left to call re pt bleeding from yesterday dressing in place pt ref to be seen by dr mcduffie
--- NOTE | 2019-01-05 14:27 | NUR ---
dr mcduffie office called pt req not to have him round on her message left with staff
--- NOTE | 2019-01-05 17:59 | NUR ---
PT EATING DINNER EARLIER DR SALDANA BY TO SEE DISCUSSED WITH HIM THAT I LEFT A MESSAGE WITH DR VILLAGRAN AND TONO ALFARO PER PT REQ
--- NOTE | 2019-01-06 04:59 | NUR ---
SHIFT SUMMARY: BRIAN IS COMPLAINING OF 7/10 PAIN IN HER TOES FOR WHICH IV DILAUDID AND PO NORCO ARE EFFECTIVE. BILATERAL LE DRESSINGS ARE DRY AND INTACT. DRESSING AROUND RIGHT TOES HAS SOME SHADOWING, NO NEW DRAINAGE THIS SHIFT. SHE DENIES ANY N/V OR NEW NUMBNESS/TINGLING. SHE DOES NOT HAVE WOUND VACS PLACED AT THIS TIME. SHE HAS THE PAST MEDICAL HISTORY OF DMII, NEUROPATHY, CAD W/CABG, PVD, CHRONIC DIASTOLIC HEART FAILURE, HTN, MORBID OBESITY AND BREAST CANCER. SHE IS A&O X4. VSS. SHE IS LYING IN BED WITH HER CALL LIGHT IN REACH.
[2019-01-06 05:30] LABS: BASOPHILS ABSOLUTE AUTO 0.05 K/mm3 (0.00-0.23); BASOPHILS PERCENT AUTO 1 % (0-2); EOSINOPHILS ABSOLUTE AUTO 0.23 K/mm3 (0.00-0.68); EOSINOPHILS PERCENT AUTO 2 % (0-6); Hematocrit 27.3 % (33.0-51.0); Hemoglobin 7.9 g/dL (11.5-16.0); IMMATURE GRAN ABSOLUTE AUTO 0.08 K/mm3 (0.00-0.10); IMMATURE GRAN PERCENT AUTO 1 % (0-1); LYMPHOCYTES ABSOLUTE AUTO 2.18 K/mm3 (0.84-5.20); LYMPHOCYTES PERCENT AUTO 21 % (21-46); MONOCYTES ABSOLUTE AUTO 0.48 K/mm3 (0.16-1.47); MONOCYTES PERCENT AUTO 5 % (4-13); Mean Corpuscular HGB 28.4 pg (26.0-34.0); Mean Corpuscular HGB Conc 28.9 g/dL (31.5-36.5); Mean Platelet Volume 9.5 fL (9.1-12.4); NEUTROPHILS ABSOLUTE AUTO 7.37 K/mm3 (1.96-9.15); NEUTROPHILS PERCENT AUTO 71 % (41-73); Platelet Count 435 K/mm3 (150-400); Red Blood Cell Count 2.78 M/mm3 (3.80-5.20); White Blood Cell Count 10.39 K/mm3 (4.00-11.30)
[2019-01-06 05:37] LABS: Mean Corpuscular Volume 98 fL (80-100)
[2019-01-06 06:01] LABS: Albumin, Blood 2.3 g/dL (3.4-5.0); Albumin/Globulin Ratio 0.5 (0.8-1.8); Bilirubin, Total 0.3 mg/dL (0.1-1.0); Bun/Creatinine Ratio 36.3 (12.0-20.0); Calcium, Blood 8.6 mg/dL (8.5-10.1); Creatinine, Blood 1.13 mg/dL (0.40-1.00); Globulin, Blood 4.8 g/dL (2.2-4.0); Potassium, Blood 6.2 mmol/L (3.5-5.5); Total Protein, Blood 7.1 g/dL (6.4-8.2)
[2019-01-06 10:34] LABS: Bun/Creatinine Ratio 39.4 (12.0-20.0); Calcium, Blood 9.3 mg/dL (8.5-10.1); Creatinine, Blood 1.09 mg/dL (0.40-1.00); Potassium, Blood 5.8 mmol/L (3.5-5.5)
[2019-01-06 16:07] LABS: Percent Saturation 10.2 % (15.0-50.0)
--- NOTE | 2019-01-07 06:27 | NUR ---
SHIFT SUMMARY: BRIAN HAD A WOUND VAC PLACED TO HER RIGHT FOOT THIS SHIFT. SHE HAS COMPLAINED OF 7/10 PAIN FOR WHICH IV DILAUDID AND NORCO HAVE BEEN HELPFUL. WOUND VAC PATENT. SHE IS ABLE TO MAKE HER NEEDS KNOWN. SHE DENIES ANY NAUSEA. NO ACUTE CHANGES THIS SHIFT. SHE IS LYING IN BED WITH HER CALL LIGHT IN REACH. SHE IS ABLE TO MAKE HER NEEDS KNOWN.
[2019-01-07 06:38] LABS: BASOPHILS ABSOLUTE AUTO 0.06 K/mm3 (0.00-0.23); BASOPHILS PERCENT AUTO 1 % (0-2); EOSINOPHILS ABSOLUTE AUTO 0.19 K/mm3 (0.00-0.68); EOSINOPHILS PERCENT AUTO 2 % (0-6); Hemoglobin 8.3 g/dL (11.5-16.0); IMMATURE GRAN ABSOLUTE AUTO 0.12 K/mm3 (0.00-0.10); IMMATURE GRAN PERCENT AUTO 1 % (0-1); LYMPHOCYTES ABSOLUTE AUTO 2.48 K/mm3 (0.84-5.20); LYMPHOCYTES PERCENT AUTO 25 % (21-46); MONOCYTES ABSOLUTE AUTO 0.51 K/mm3 (0.16-1.47); MONOCYTES PERCENT AUTO 5 % (4-13); Mean Corpuscular HGB 27.9 pg (26.0-34.0); Mean Corpuscular HGB Conc 28.6 g/dL (31.5-36.5); Mean Corpuscular Volume 98 fL (80-100); Mean Platelet Volume 9.7 fL (9.1-12.4); NEUTROPHILS ABSOLUTE AUTO 6.61 K/mm3 (1.96-9.15); NEUTROPHILS PERCENT AUTO 66 % (41-73); Platelet Count 498 K/mm3 (150-400); RDW Coefficient Variation 17.9 % (11.7-14.2); RDW Standard Deviation 64.3 fL (35.1-46.3); Red Blood Cell Count 2.97 M/mm3 (3.80-5.20); White Blood Cell Count 9.97 K/mm3 (4.00-11.30)
[2019-01-07] MEDS ORDERED: Norco 10-325 T1 EACH PO (14:49)
[2019-01-07] MEDS ORDERED: Vsl#3 Capsule1 EACH PO (14:50)
[2019-01-07] MEDS ORDERED: VANCOCIN HCL250 MG PO (14:51)
--- NOTE | 2019-01-07 16:05 | NUR ---
Discharge Pt doing well. Cleared by therapy. Script for pain meds given and new meds called to [facility]. Wound vac removed and wet gauze, abd, and fe wrap applied. Home health RN into room to discuss that a nurse will be out to see her soon to place wound vac as the hospital vac and her home vac are not combatible. Escorted out via W/C.
== END 2019-01-07 16:10 | disposition home health service (06) | DRG 256 ==
LOC: ER 16:27 → MEDS 22:43 → ICUE 22:43 → MEDS 23:45 → ICUE 12-30 16:00 → SURS 12-31 19:08
PROVIDERS: Hospitalist; Internal Medicine; Pharmacist; Physician Assistant; Podiatrist Foot & Ankle Surgery; ADMIT Internal Medicine
PROC: 0Y6X0Z1 Detachment at Right 5th Toe, High, Open Approach (ICD-10-PCS; 2018-12-30)
PROC: 0JBQ0ZZ Excision of Right Foot Subcutaneous Tissue and Fascia, Open Approach (ICD-10-PCS; 2018-12-30)
PROC: 0Y6V0Z1 Detachment at Right 4th Toe, High, Open Approach (ICD-10-PCS; principal; 2018-12-30 13:45)
DX: E11.52 Type 2 diabetes mellitus with diabetic peripheral angiopathy with gangrene (principal); I96 Gangrene, not elsewhere classified; I13.0 Hypertensive heart and chronic kidney disease with heart failure and stage 1 through stage 4 chronic kidney disease, or unspecified chronic kidney disease; I50.32 Chronic diastolic (congestive) heart failure; E11.22 Type 2 diabetes mellitus with diabetic chronic kidney disease; N18.3 Chronic kidney disease, stage 3 (moderate); D63.1 Anemia in chronic kidney disease; Z79.4 Long term (current) use of insulin; E03.9 Hypothyroidism, unspecified; I25.10 Atherosclerotic heart disease of native coronary artery without angina pectoris; E11.621 Type 2 diabetes mellitus with foot ulcer; L97.519 Non-pressure chronic ulcer of other part of right foot with unspecified severity
CPT/HCPCS: 0097U; 36415; 37186; 37226; 37228; 37232; 51702; 73630; 75710; 75774; 80048; 80053; 80202; 81001; 82728; 82947; 83540; 83550; 83735; 85025; 85027; 85347; 85651; 87070; 87075; 87077; 87086; 87186; 87205; 87324; 88305; 88311; 90471; 90714; 93005; 93010; 93922; 96365; 96366; 96375; 97161; 97166; 97530; 97535; 99152; 99153; 99285-25; A9270; A9270-GY; C1725; C1760; C1769; C1874; C1887; C1894; C2623; J0610; J0692; J1170; J1644; J1650; J1815; J2060; J2250; J2405; J2543; J2997; J3010; J3370; J7030; J7042; J7050; J7799; Q9967

== ENCOUNTER 2019-01-12 16:56 | Emergency (ER) | payer MEDICARE, OTHER ==
[~2019-01-12] VITALS: Ht 172.7 cm; Wt 94.3 kg
[~2019-01-12 16:56] MED LIST changes: +SANTYL30 GM TOP; +Synthroid200 MCG PO; +VANCOCIN HCL250 MG PO; +Vsl#3 Capsule1 EACH PO
[2019-01-12 17:39] LABS: BASOPHILS ABSOLUTE AUTO 0.05 K/mm3 (0.00-0.23); BASOPHILS PERCENT AUTO 1 % (0-2); EOSINOPHILS ABSOLUTE AUTO 0.23 K/mm3 (0.00-0.68); EOSINOPHILS PERCENT AUTO 3 % (0-6); Hematocrit 26.9 % (33.0-51.0); Hemoglobin 7.8 g/dL (11.5-16.0); IMMATURE GRAN ABSOLUTE AUTO 0.04 K/mm3 (0.00-0.10); IMMATURE GRAN PERCENT AUTO 1 % (0-1); LYMPHOCYTES ABSOLUTE AUTO 1.82 K/mm3 (0.84-5.20); LYMPHOCYTES PERCENT AUTO 21 % (21-46); MONOCYTES ABSOLUTE AUTO 0.24 K/mm3 (0.16-1.47); MONOCYTES PERCENT AUTO 3 % (4-13); Mean Corpuscular HGB 27.4 pg (26.0-34.0); Mean Corpuscular Volume 94 fL (80-100); Mean Platelet Volume 9.3 fL (9.1-12.4); NEUTROPHILS ABSOLUTE AUTO 6.46 K/mm3 (1.96-9.15); NEUTROPHILS PERCENT AUTO 73 % (41-73); Platelet Count 537 K/mm3 (150-400); RDW Coefficient Variation 18.2 % (11.7-14.2); RDW Standard Deviation 61.8 fL (35.1-46.3); Red Blood Cell Count 2.85 M/mm3 (3.80-5.20); White Blood Cell Count 8.84 K/mm3 (4.00-11.30)
[2019-01-12 18:06] LABS: Troponin I 0.122 ng/mL (0.000-0.040)
[2019-01-12 18:30] LABS: Albumin, Blood 2.9 g/dL (3.4-5.0); Albumin/Globulin Ratio 0.6 (0.8-1.8); Bilirubin, Total 0.3 mg/dL (0.1-1.0); Bun/Creatinine Ratio 43.9 (12.0-20.0); Calcium, Blood 8.7 mg/dL (8.5-10.1); Creatinine, Blood 1.07 mg/dL (0.40-1.00); Globulin, Blood 4.6 g/dL (2.2-4.0); Potassium, Blood 4.8 mmol/L (3.5-5.5); Total Protein, Blood 7.5 g/dL (6.4-8.2)
[2019-01-12 20:00] LABS: International Normalized Ratio 1.1; Prothrombin Time Results 11.6 Sec (9.7-11.5)
== END 2019-01-12 21:00 | disposition short-term general hospital (02) ==
LOC: ER 16:56
PROVIDERS: Emergency Medicine; Physician Assistant
DX: R07.9 Chest pain, unspecified (principal); D64.9 Anemia, unspecified; B96.89 Other specified bacterial agents as the cause of diseases classified elsewhere; K92.2 Gastrointestinal hemorrhage, unspecified; E11.51 Type 2 diabetes mellitus with diabetic peripheral angiopathy without gangrene; I11.0 Hypertensive heart disease with heart failure; I50.9 Heart failure, unspecified; I25.10 Atherosclerotic heart disease of native coronary artery without angina pectoris; Z87.891 Personal history of nicotine dependence; Z89.421 Acquired absence of other right toe(s); Z89.422 Acquired absence of other left toe(s); Z79.82 Long term (current) use of aspirin; Z79.899 Other long term (current) drug therapy; Z79.4 Long term (current) use of insulin
CPT/HCPCS: 36415; 71046; 80053; 82272; 83880; 84484; 85025; 85610; 85730; 93005; 93010; 96374; 96375; 96376; 99285-25; C9113; J3010

== ENCOUNTER 2019-02-24 18:03 | Observation (INO) | payer MEDICARE, OTHER ==
[~2019-02-24] VITALS: Ht 170.2 cm; Wt 98.0 kg
[~2019-02-24 18:03] MED LIST changes: -ATOR40TA PO; -Aspirin EC81 MG PO; -GABA300 PO; -SANTYL30 GM TOP; -Synthroid200 MCG PO; -Vsl#3 Capsule1 EACH PO
[2019-02-24] MEDS ORDERED: Lipitor80 MG PO (18:54)
[2019-02-24 18:55] LABS: Hematocrit 28.4 % (33.0-51.0); Hemoglobin 8.5 g/dL (11.5-16.0); Mean Corpuscular HGB 28.1 pg (26.0-34.0); Mean Corpuscular HGB Conc 29.9 g/dL (31.5-36.5); Mean Corpuscular Volume 94 fL (80-100); RDW Coefficient Variation 16.1 % (11.7-14.2); RDW Standard Deviation 55.5 fL (35.1-46.3); Red Blood Cell Count 3.02 M/mm3 (3.80-5.20); White Blood Cell Count 4.24 K/mm3 (4.00-11.30)
[2019-02-24 18:56] LABS: Platelet Count 28 K/mm3 (150-400)
[2019-02-24] MEDS ORDERED: GABA300 PO (19:13)
[2019-02-24] MEDS ORDERED: ASPI81CH PO (19:14)
[2019-02-24 19:15] LABS: BASOPHILS ABSOLUTE MAN 0.04 K/mm3 (0.00-0.23); BASOPHILS PERCENT MAN 1 % (0-2); EOSINOPHILS ABSOLUTE MAN 0.12 K/mm3 (0.00-0.68); EOSINOPHILS PERCENT MAN 3 % (0-6); LYMPHOCYTES ABSOLUTE MAN 1.18 K/mm3 (0.84-5.20); LYMPHOCYTES PERCENT MAN 28 % (21-46); MONOCYTES ABSOLUTE MAN 0.16 K/mm3 (0.16-1.47); MONOCYTES PERCENT MAN 4 % (4-13); NEUTROPHILS ABSOLUTE MAN 2.71 K/mm3 (1.96-9.15); SEG NEUTROPHILS PERCENT MAN 64 % (41-73); TOTAL CELLS COUNTED 100
[2019-02-24] MEDS ORDERED: TORSE20 PO (19:15)
[2019-02-24] MEDS ORDERED: BASAGLAR K100 UNIT/1 SC (19:16)
[2019-02-24] MEDS ORDERED: CLOP75 PO (19:16)
[2019-02-24 19:17] LABS: Albumin, Blood 3.1 g/dL (3.4-5.0); Albumin/Globulin Ratio 0.7 (0.8-1.8); Bilirubin, Total 0.4 mg/dL (0.1-1.0); Bun/Creatinine Ratio 57.3 (12.0-20.0); Calcium, Blood 8.9 mg/dL (8.5-10.1); Creatinine, Blood 1.31 mg/dL (0.40-1.00); Globulin, Blood 4.3 g/dL (2.2-4.0); Potassium, Blood 4.1 mmol/L (3.5-5.5); Total Protein, Blood 7.4 g/dL (6.4-8.2)
[2019-02-24] MEDS ORDERED: LEVSOD75 PO (19:17)
[2019-02-24] MEDS ORDERED: Humalog100 UNIT/3 SC ×2 (19:18→19:26)
[2019-02-24] MEDS ORDERED: PROBIOTIC250 MG PO (19:19)
[2019-02-24] MEDS ORDERED: CARV3.125 PO (19:20)
[2019-02-24] MEDS ORDERED: SANTYL30 GM TOP (19:20)
[2019-02-24] MEDS ORDERED: FERSU300 PO (19:21)
[2019-02-24] MEDS ORDERED: FOLI400 PO (19:21)
[2019-02-24] MEDS ORDERED: ACET325 PO (19:22)
[2019-02-24] MEDS ORDERED: PANT40 PO (19:22)
[2019-02-24] MEDS ORDERED: HYDMOR4 PO (19:24)
[2019-02-24] MEDS ORDERED: HYDHCL25 PO (19:24)
[2019-02-24] MEDS ORDERED: ONDA4 PO (19:28)
[2019-02-24] MEDS ORDERED: NYSTRITC TOP (19:29)
[2019-02-24] MEDS ORDERED: TRIPLE ANTIBIO1 EAC1 TOP (19:29)
--- NOTE | 2019-02-24 21:45 | NUR ---
PATIENT IS A NEW ADMIT FROM THE ED. FOUR PERSON TRANSFER FROM [facility] TO BED. AXOX 3 AND SLOW TO RESPOND. LETHARGIC ON ADMIT. REPORTS DOES NOT KNOW HER MED LIST. PATIENT FROM [facility]. CHARGE NURSE NOTIFIED [facility] TO FAX OVER MED LIST. TOE AMPUTATIONS ON 4TH AND 5TH LEFT TOES. RIGHT TOES 3RD, 4TH, AND 5TH AMPUTATED. WOUND VAC ON RIGHT TOES PRESENT ON ADMIT. PATIENT BEDREST. DENIES PAIN, SOB, AND N/V. PATIENT ORIENTED TO ROOM AND CALL LIGHT SYSTEM. PIV INTACT AND NS STARTED AT 75/mL/HR X ONE BAG. USING BEDPAN. CALL LIGHT IN REACH. WILL CONTINUE TO MONITOR.
--- NOTE | 2019-02-25 00:24 | NUR ---
WOUND VAC CHANGED TO HOSPITAL'S SYSTEM. CONTINUED SAME SETTING FROM PREVIOUS WOUND VAC PLACED AT [facility]. WOUND VAC DRESSING CHANGED 02/24/19.
--- NOTE | 2019-02-25 00:41 | NUR ---
HEMATOLOGY CONSULT CALLED TO ANSWERING SERVICE. DR CHATO MEEKS ([facility]) INGOT WEIGHER.
--- NOTE | 2019-02-25 04:19 | NUR ---
SHIFT SUMMARY PATIENT LESS LETHARGIC NOW. AXOX [address] HASKINS ORDERED FENTANYL 25-50 MG IV Q4 PRN FOR PAIN. PATIENT RECEIVED X ONE FOR FEET PAIN. MULTIPLE TOES AMPUTATED WITH WOUND VAC IN PLACE ON RIGHT FOOT (SEE NOTE). PIV REMAIN INTACT. NS INFUSING AT 75 X ONE. HEMATOLOGY CONSULT CALLED IN. [facility] FAXED MED LIST OVER AND COMPLETED. CALL LIGHT IN REACH. VSS/AFEBRILE. DENIES N/V AND SOB. CALL LIGHT IN REACH. BED IN LOWEST POSITION. WILL CONTINUE TO MONITOR UNTIL DAY SHIFT NURSE ASSUMES CARE.
[2019-02-25 08:34] LABS: Hematocrit 29.4 % (33.0-51.0); Hemoglobin 8.9 g/dL (11.5-16.0); Mean Corpuscular HGB 27.9 pg (26.0-34.0); Mean Corpuscular HGB Conc 30.3 g/dL (31.5-36.5); Mean Corpuscular Volume 92 fL (80-100); Mean Platelet Volume 11.4 fL (9.1-12.4); RDW Coefficient Variation 15.8 % (11.7-14.2); Red Blood Cell Count 3.19 M/mm3 (3.80-5.20); White Blood Cell Count 2.93 K/mm3 (4.00-11.30)
[2019-02-25 08:53] LABS: Albumin, Blood 3.3 g/dL (3.4-5.0); Albumin/Globulin Ratio 0.8 (0.8-1.8); Bilirubin, Total 0.4 mg/dL (0.1-1.0); Bun/Creatinine Ratio 67.9 (12.0-20.0); Calcium, Blood 9.1 mg/dL (8.5-10.1); Creatinine, Blood 1.06 mg/dL (0.40-1.00); Globulin, Blood 4.4 g/dL (2.2-4.0); Potassium, Blood 4.4 mmol/L (3.5-5.5); Total Protein, Blood 7.7 g/dL (6.4-8.2)
[2019-02-25 08:56] LABS: Platelet Count 26 K/mm3 (150-400)
--- NOTE | 2019-02-25 11:28 | NUR ---
WOUND VAC CHANGED. WOUND VAC CHANGED. NEW PHOTOS TAKEN. PT SLEPT THROUGH PROCEDURE.
--- NOTE | 2019-02-25 17:26 | NUR ---
PATIENT WAS HARD TO AROUSE TILL MID SHIFT . PAIN MEDS ADJUSTED WHICH APPEAR TO HAVE WORKED PATIENT IS ALERT AND AWAKE THIS AFTERNOON. WOUND VAC CHANGED THIS MORING PER ORDER. PATIENT IS FRIENDLY AND COOPERATIVE WITH STAFF. SHE REQUIRES BED PA BUT IS CONTINENT OF BB. PLATELETS STILL CONTINUE TO DROP, DOCTOR AWARE. CALL LIGHT WITH IN REACH.
[2019-02-26 04:29] LABS: BASOPHILS PERCENT AUTO 0 % (0-2); EOSINOPHILS PERCENT AUTO 0 % (0-6); Hematocrit 27.2 % (33.0-51.0); Hemoglobin 8.4 g/dL (11.5-16.0); IMMATURE GRAN ABSOLUTE AUTO 0.01 K/mm3 (0.00-0.10); IMMATURE GRAN PERCENT AUTO 0 % (0-1); LYMPHOCYTES ABSOLUTE AUTO 0.96 K/mm3 (0.84-5.20); LYMPHOCYTES PERCENT AUTO 19 % (21-46); MONOCYTES ABSOLUTE AUTO 0.23 K/mm3 (0.16-1.47); MONOCYTES PERCENT AUTO 5 % (4-13); Mean Corpuscular HGB 27.9 pg (26.0-34.0); Mean Corpuscular HGB Conc 30.9 g/dL (31.5-36.5); Mean Corpuscular Volume 90 fL (80-100); NEUTROPHILS ABSOLUTE AUTO 3.94 K/mm3 (1.96-9.15); NEUTROPHILS PERCENT AUTO 77 % (41-73); RDW Coefficient Variation 15.9 % (11.7-14.2); RDW Standard Deviation 52.5 fL (35.1-46.3); Red Blood Cell Count 3.01 M/mm3 (3.80-5.20); White Blood Cell Count 5.14 K/mm3 (4.00-11.30)
[2019-02-26 04:35] LABS: Platelet Count 31 K/mm3 (150-400)
[2019-02-26 04:52] LABS: Bun/Creatinine Ratio 79.6 (12.0-20.0); Calcium, Blood 9.2 mg/dL (8.5-10.1); Creatinine, Blood 1.03 mg/dL (0.40-1.00); Potassium, Blood 4.3 mmol/L (3.5-5.5)
--- NOTE | 2019-02-26 05:20 | NUR ---
Shift Summary Patient slept intermittently overnight. She was very concerned about her buttocks excoriation, but she stated barrier cream was helpful. Platelet count trending up after torsemide decrease. Wound vac in place and working to right foot.
--- NOTE | 2019-02-26 14:51 | NUR ---
NURSEGISELA AT [facility] NOTIFIED OF PT TRANSPORT FOR BETWEEN 1714 AND 1729
[2019-02-26] MEDS ORDERED: LEVSOD125 PO (14:53)
[2019-02-26] MEDS ORDERED: TUMS500 MG PO (14:56)
[2019-02-26] MEDS ORDERED: DEXA2 PO (15:01)
[2019-02-26] MEDS ORDERED: ABAT250V (15:02)
[2019-02-26] MEDS ORDERED: SPIR25 PO (15:02)
--- NOTE | 2019-02-26 17:18 | NUR ---
DISCHARGE SUMMARY PT DISCHARGED TO [facility]. PT LEFT ROOM AT THIS TIME VIA WHEELCHAIR WITH [facility]. IV DC'D AND BELONGINGS (INCLUDING HOME WOUND VAC) RETURNED. REPORT CALLED AND GIVEN TO GISELA AT 1332.
[2019-02-27 14:06] LABS: HEPARIN INDUCED PLATELET AB 0.144 OD (0.000-0.400)
== END 2019-02-26 17:20 ==
LOC: ER 18:03 → MEDS 18:04 → ENPENDDIS 02-26 08:39 → MEDS 02-26 17:20
PROVIDERS: Emergency Medicine; Internal Medicine; ADMIT Internal Medicine
DX: D69.6 Thrombocytopenia, unspecified (principal); I13.0 Hypertensive heart and chronic kidney disease with heart failure and stage 1 through stage 4 chronic kidney disease, or unspecified chronic kidney disease; E11.22 Type 2 diabetes mellitus with diabetic chronic kidney disease; N18.3 Chronic kidney disease, stage 3 (moderate); I50.32 Chronic diastolic (congestive) heart failure; E11.51 Type 2 diabetes mellitus with diabetic peripheral angiopathy without gangrene; I25.10 Atherosclerotic heart disease of native coronary artery without angina pectoris; E11.42 Type 2 diabetes mellitus with diabetic polyneuropathy; E03.2 Hypothyroidism due to medicaments and other exogenous substances; Z68.33 Body mass index [BMI] 33.0-33.9, adult; E66.01 Morbid (severe) obesity due to excess calories; Z79.02 Long term (current) use of antithrombotics/antiplatelets; Z79.82 Long term (current) use of aspirin; Z79.4 Long term (current) use of insulin; Z79.899 Other long term (current) drug therapy; Z89.421 Acquired absence of other right toe(s); Z85.3 Personal history of malignant neoplasm of breast; Z90.49 Acquired absence of other specified parts of digestive tract; Z87.891 Personal history of nicotine dependence
CPT/HCPCS: 29130; 36415; 80048; 80053; 82947; 84439; 85007; 85025; 85027; 86022; 86850; 86900; 86901; 96374; 97162; 97530; 99284-25; G0378; J3010; J7030

== ENCOUNTER 2019-04-08 01:01 | Day surgery (SDC) | payer MEDICARE, OTHER ==
[~2019-04-08 01:01] MED LIST changes: +ABAT250V; +ACET325 PO; +CARV3.125 PO; +DEXA2 PO; +FERSU300 PO; +FOLI400 PO; +GABA300 PO; +HYDHCL25 PO; +HYDMOR4 PO; +Humalog100 UNIT/3 SC; +LEVSOD125 PO; +LEVSOD75 PO; +Lipitor80 MG PO; +NYSTRITC TOP; +ONDA4 PO; +PANT40 PO; +PROBIOTIC250 MG PO; +SANTYL30 GM TOP; +SPIR25 PO; +TRIPLE ANTIBIO1 EAC1 TOP; +TUMS500 MG PO
== END 2019-04-08 23:11 | disposition home or self-care (01) ==
LOC: WOUND 01:01
DX: E11.621 Type 2 diabetes mellitus with foot ulcer (principal); L97.515 Non-pressure chronic ulcer of other part of right foot with muscle involvement without evidence of necrosis; E11.69 Type 2 diabetes mellitus with other specified complication; M86.8X7 Other osteomyelitis, ankle and foot; E11.51 Type 2 diabetes mellitus with diabetic peripheral angiopathy without gangrene; E11.42 Type 2 diabetes mellitus with diabetic polyneuropathy; D69.6 Thrombocytopenia, unspecified; E03.9 Hypothyroidism, unspecified; J44.9 Chronic obstructive pulmonary disease, unspecified; I11.0 Hypertensive heart disease with heart failure; I50.9 Heart failure, unspecified; Z85.3 Personal history of malignant neoplasm of breast; Z95.1 Presence of aortocoronary bypass graft; Z87.891 Personal history of nicotine dependence; Z88.1 Allergy status to other antibiotic agents; Z79.4 Long term (current) use of insulin; Z79.899 Other long term (current) drug therapy
CPT/HCPCS: G0463

== ENCOUNTER 2019-04-25 12:55 | Inpatient (IN) | payer MEDICARE, OTHER ==
[~2019-04-25] VITALS: Ht 170.2 cm; Wt 94.6 kg
[2019-04-25 14:03] LABS: Influenza A Negative (NEGATIVE); Influenza B Negative (NEGATIVE)
[2019-04-25 15:05] LABS: PCO2 Arterial 37.6 mmHg (35-45); PO2 Arterial 81.5 mmHg (80-100); pH Blood Arterial 7.37 (7.35-7.45)
[2019-04-25 15:30] LABS: BASOPHILS ABSOLUTE AUTO 0.03 K/mm3 (0.00-0.23); BASOPHILS PERCENT AUTO 0 % (0-2); EOSINOPHILS PERCENT AUTO 0 % (0-6); Hematocrit 35.4 % (33.0-51.0); Hemoglobin 11.5 g/dL (11.5-16.0); IMMATURE GRAN PERCENT AUTO 1 % (0-1); LYMPHOCYTES ABSOLUTE AUTO 1.51 K/mm3 (0.84-5.20); LYMPHOCYTES PERCENT AUTO 8 % (21-46); MONOCYTES PERCENT AUTO 5 % (4-13); Mean Corpuscular HGB 28.9 pg (26.0-34.0); Mean Corpuscular HGB Conc 32.5 g/dL (31.5-36.5); Mean Corpuscular Volume 89 fL (80-100); NEUTROPHILS ABSOLUTE AUTO 15.76 K/mm3 (1.96-9.15); NEUTROPHILS PERCENT AUTO 86 % (41-73); Platelet Count 228 K/mm3 (150-400); RDW Coefficient Variation 18.5 % (11.7-14.2); RDW Standard Deviation 60.6 fL (35.1-46.3); Red Blood Cell Count 3.98 M/mm3 (3.80-5.20)
[2019-04-25 15:50] LABS: Albumin, Blood 2.6 g/dL (3.4-5.0); Albumin/Globulin Ratio 0.5 (0.8-1.8); Bilirubin, Total 0.5 mg/dL (0.1-1.0); Bun/Creatinine Ratio 35.8 (12.0-20.0); Calcium, Blood 8.8 mg/dL (8.5-10.1); Creatinine, Blood 1.23 mg/dL (0.40-1.00); Globulin, Blood 5.5 g/dL (2.2-4.0); Potassium, Blood 3.7 mmol/L (3.5-5.5); Total Protein, Blood 8.1 g/dL (6.4-8.2); Troponin I 0.09 ng/mL (0.000-0.040)
[2019-04-25 17:49] LABS: Source, Urine Clean Catch
[2019-04-25 17:53] LABS: Bilirubin, Urine Neg (Neg); Blood, Urine 2+ (Neg); Glucose Qualitative, Urine Neg (Neg); Ketones, Urine 1+ (Neg); Leukocyte Esterase, Urine Neg (Neg); Nitrite, Urine Neg (Neg); Protein, Urine 4+ (Neg); Specific Gravity, Urine 1.025 (1.003-1.022); Urobilinogen, Urine NORM (Normal)
[2019-04-25] MEDS ORDERED: NEURONTIN300 MG PO (17:57)
[2019-04-25 18:25] LABS: Appearance, Urine Cloudy (Clear); Color, Urine Yellow (P-Yellow)
[2019-04-25 18:27] LABS: Amorphous Mod (0-Heavy); Bacteria Few /hpf; Red Blood Cells, Urine 0-2 /hpf (0-2); Squamous Epithelial Cells Few /hpf (Few); White Blood Cells, Urine 0-2 /hpf (0-5)
--- NOTE | 2019-04-25 19:39 | NUR ---
ARRIVAL TO UNIT Assumed care of pt upon arrival to unit at 1805 from emergency department. Pt transferred from ED [facility] to ICU bed using slider sheet and four staff. Pt arrived wearing BiPAP 14/8 and 35% FiO2. Pt alert, asking to take off mask. Mask removed for about five minutes. SpO2 90% or greater with 4 LPM NC. Lungs coarse on auscultation with dim bases. Pt placed back on BiPAP when SpO2 fell below 90%. After BiPAP placement, pt was tachypnic with RR 45-55. Dr Corea notified. Provider stated she was planning on seeing patient. No family in to see pt since arrival to unit. On skin assessment, two stage 2 pressure ulcers were noted on coccyx. One is pinpoint sized and one is pencil-eraser sized. Sites photographed and left open to air. Pt has had fourth and fifth toes removed on left foot. At this site, there is a quarter sized wound with purulent drainage. On arrival to unit, this site is dressed with ABD pad, that is poorly secured with tape. Plan to change dressing. Pt also has wound vac to lateral right foot. On arrival to unit, the site is improperly dressed with stiff striped layer (meant to be disposed after dressing application) still in place. Additionally, clear drape has rolled edges and is tightly wrapped around foot and has created a cut in the skin. Site photographed. Wound vac is off upon arrival to unit and suction is not applied. Plan to remove wound vac. Bedside report given to oncoming Gris KHAN.
[2019-04-25 23:51] LABS: Troponin I 0.102 ng/mL (0.000-0.040)
[2019-04-26 00:23] LABS: Adenovirus Not Detected (NOT DETECT); Bordetella pertussis Not Detected (NOT DETECT); Chlamydophila pneumoniae Not Detected (NOT DETECT); Coronavirus 229E Not Detected (NOT DETECT); Coronavirus HKU1 Not Detected (NOT DETECT); Coronavirus NL63 Not Detected (NOT DETECT); Coronavirus OC43 Not Detected (NOT DETECT); Human Metapneumovirus Not Detected (NOT DETECT); Human Rhinovirus/Enterovirus Not Detected (NOT DETECT); Influenza A Not Detected (NOT DETECT); Influenza A/2009-H1 Not Detected (NOT DETECT); Influenza A/H1 Not Detected (NOT DETECT); Influenza A/H3 Not Detected (NOT DETECT); Influenza B Not Detected (NOT DETECT); Mycoplasma pneumoniae Not Detected (NOT DETECT); Parainfluenza Virus 1 Not Detected (NOT DETECT); Parainfluenza Virus 2 Not Detected (NOT DETECT); Parainfluenza Virus 3 Not Detected (NOT DETECT); Parainfluenza Virus 4 Not Detected (NOT DETECT); Respiratory Syncytial Virus Detected (NOT DETECT)
[2019-04-26 03:57] LABS: BASOPHILS ABSOLUTE AUTO 0.02 K/mm3 (0.00-0.23); BASOPHILS PERCENT AUTO 0 % (0-2); EOSINOPHILS PERCENT AUTO 0 % (0-6); Hematocrit 29.1 % (33.0-51.0); Hemoglobin 9.5 g/dL (11.5-16.0); IMMATURE GRAN ABSOLUTE AUTO 0.07 K/mm3 (0.00-0.10); IMMATURE GRAN PERCENT AUTO 0 % (0-1); LYMPHOCYTES ABSOLUTE AUTO 1.13 K/mm3 (0.84-5.20); LYMPHOCYTES PERCENT AUTO 7 % (21-46); MONOCYTES ABSOLUTE AUTO 0.91 K/mm3 (0.16-1.47); MONOCYTES PERCENT AUTO 6 % (4-13); Mean Corpuscular HGB 28.8 pg (26.0-34.0); Mean Corpuscular HGB Conc 32.6 g/dL (31.5-36.5); Mean Corpuscular Volume 88 fL (80-100); Mean Platelet Volume 10.1 fL (9.1-12.4); NEUTROPHILS ABSOLUTE AUTO 13.73 K/mm3 (1.96-9.15); NEUTROPHILS PERCENT AUTO 87 % (41-73); Platelet Count 197 K/mm3 (150-400); RDW Coefficient Variation 18.3 % (11.7-14.2); White Blood Cell Count 15.86 K/mm3 (4.00-11.30)
[2019-04-26 04:15] LABS: Albumin, Blood 2.1 g/dL (3.4-5.0); Albumin/Globulin Ratio 0.4 (0.8-1.8); Bilirubin, Total 0.5 mg/dL (0.1-1.0); Bun/Creatinine Ratio 33.3 (12.0-20.0); Calcium, Blood 8.1 mg/dL (8.5-10.1); Creatinine, Blood 1.47 mg/dL (0.40-1.00); Globulin, Blood 4.8 g/dL (2.2-4.0); Magnesium, Blood 1.4 mg/dL (1.6-2.4); Phosphorus, Blood 2.1 mg/dL (2.5-4.9); Potassium, Blood 3.3 mmol/L (3.5-5.5); Total Protein, Blood 6.9 g/dL (6.4-8.2)
--- NOTE | 2019-04-26 07:43 | NUR ---
PT RESTS QUIETLY MOST OF THIS SHIFT, AROUSES EASILY TO VERBAL STIMULI THROUGHOUT NOC, DOES FREQUENTLY REQUEST BIPAP REMOVED HOWEVER AFTER EXPLANATION REGARDING LUNG SOUNDS AND BREATHING ASSISTANCE THAT BIPAP PROVIDES WELL POTENTIAL NEED FOR INTUBATION OF PT DECOMPENSATES WHILE OFF BIPAP, PT CALMS AND LEAVES BIPAP IN PLACE, ATIVAN 0.5 MG IV ADMINISTERED X 2 THIS SHIFT FOR TIMES WHEN PT WAS REACHING FOR BIPAP MASK AND REPORTING "IT'S KILLING ME" WITH INCREASED AGITATION AND RESTLESSNESS. LUNGS REMAIN COARSE THROUGHOUT NOC, RESP RATE CONTINUES BETWEEN 30 AND HIGH 40S, DR DAY AWARE OF CONTINUED TACHYPNEA WITH BIPAP, TIDAL VOLUMES HAVE BEEN 3-500 WITH MINIMAL LEAK NOTED, PRESSURES CONTINUE 03/11, FIO2 WAS TITRATED DOWN FROM 35% AT BEGINNING OF SHIFT TO 25% THIS AM, PT REQUESTED BREAK FROM BIPAP AT 0630 THIS AM AND RESPIRATIONS WERE 20S AT THE TIME, PT CHANGED TO NASAL CANNULA AT 2 L/MIN AND TOLERATES WELL. HRR, HYPOTENSION WAS NOTED AT TIMES THROUGHOUT NOC HOWEVER MAP MAINTAINED GREATER THAN 65, DISCUSSED WITH DR DAY, NO INTERVENTIONS UNLESS WORSENED HYPOTENSION WAS NOTED, PT'S BLOOD PRESSURES IMPROVED AFTER DISCUSSING HYPOTENSION WITH DR DAY. PT WITH LIQUID YELLOW/BROWN BOWEL MOVEMENT X 2 THIS SHIFT, UNABLE TO SEND SPECIMEN DUE STOOL SOAKS INTO ATTENDS, PT IS ABLE TO TURN AND REPOSITION SELF DURING LINEN AND ATTENDS CHANGES HOWEVER SHE IS NOTED TO NEED VERBAL REMINDERS TO REPOSITION THROUGHOUT SHIFT. BILAT FOOT TOE AMPUTATION SITES ARE NOTED AND CONTINUE WITHOUT CHANGES THIS SHIFT, INCORRECT DRESSING TO RIGHT FOOT WOUND VAC WAS REMEDIED WITH REMOVAL OF PLASTIC SHEETING PER INSTRUCTIONS WITH WOUND VAC DRESSING CHANGES, NO LEAKS ARE NOTED AFTER REMOVAL AND PT REPORTS IMPROVED COMFORT. THIS AM AT 0600 PT WAS NOTED TO HAVE REMOVED CAP FROM IV SITE, BLOOD WAS NOTED IN BEDDING, APPROXIMATELY 100 ML, NEW CAP PLACED, LINEN CHANGED, PARTIAL BATH PROVIDED. PT TOLERATED WELL.
[2019-04-26 07:46] LABS: Troponin I 0.077 ng/mL (0.000-0.040)
[2019-04-26 08:03] LABS: PCO2 Arterial 42.1 mmHg (35-45); PO2 Arterial 108 mmHg (80-100); pH Blood Arterial 7.34 (7.35-7.45)
--- NOTE | 2019-04-26 10:04 | NUR ---
ECHOCARDIOGRAM COMPLETED
--- NOTE | 2019-04-26 14:28 | NUR ---
REASSESSMENT: PT HAS BEEN RESTING IN BED THROUGHOUT THE MORNING. SHE WAKES UP WHEN SOMEONE IS IN THE ROOM WITH HER, BUT FALLS BACK ASLEEP WHEN LEFT UNDISTURBED. WHEN AWAKE SHE IS ABLE TO SAY WHERE SHE IS AND WHY SHE CAME IN. SHE KNOWS SHE HAD AN APPT AT THE WOUND CLINIC TODAY. SPOKE WITH THE WOUND CLINIC AND SHE DID HAVE AN APPT TODAY, BUT THEY DON'T MANAGE HER WOUND VAC. RECEIVED NUMBER OF DOC IN [place] THAT MANAGES HER WOUND VAC AND WILL CONTACT FOR INSTRUCTIONS THE CLINIC STATES THEY HAVE RECORD THAT PT HAS MISSED THE LAST 2 WOUND VAC CHANGES ON HER FOOT. PT'S LUNGS REMAIN COARSE AND WHEEZY BUT RR IS IN THE MID 20S TO LOW 30S AND PT SAYS SHE FEELS SHE IS BREATHING BETTER. SHE HAS REFUSED TO WEAR THE BIPAP THIS MORNING. SPO2 97% ON 1L/NC. MOIST COUGH, BUT PT IS SWALLOWING HER SPUTUM AND HASN'T GIVEN SPUTUM SAMPLE. ATTENDS CHANGED ONCE FOR LOOSE STOOL. UNABLE TO SEND SAMPLE IT WAS ALL SOAKED INTO ATTENDS.
--- NOTE | 2019-04-26 17:07 | NUR ---
SHIFT SUMMARY: PT HAS BEEN MORE ALERT THIS AFTERNOON, ASKING FOR SOMETHING TO EAT. DR. BUTLER GAVE OK FOR PT TO BE FULL LIQUID DIET AND PT IS TOLERATING THAT WELL. HER LUNGS ARE STILL COARSE AND WHEEZY BUT SHE IS MAINTAINING SPO2 GREATER THAN 90 ON RA. SHE IS SR WITH FEW PVCS, BP STABLE. SPOKE WITH THE DR. OFFICE IN [place] WHO PT WAS GETTING WOUND CARE THROUGH AND THE NURSE STATED THAT THE DR'S LAST OFFICE NOTE SAID HE WAS SIGNING OFF. WOUND CLINIC HERE GOT A PHONE NUMBER FOR THE WOUND CENTER IN [place] THAT WAS ALSO HELPING WITH PT, BUT HAVE NOT BEEN ABLE TO CALL THEM YET. PT IS TRANSFERRING TO PCU SO WILL PASS ON THE PHONE NUMBER.
--- NOTE | 2019-04-26 18:26 | NUR ---
REPORT GIVEN TO ERIN ROBERTSON. PT TRANSFERRED TO PCU 7 VIA BED. ALL BELONGINGS SENT WITH PT. PT TOLERATED TRANSFER WELL.
--- NOTE | 2019-04-26 18:41 | NUR ---
TRANSFER NOTE RECEIVED REPORT FROM ERIN HARRIS IN ICU. PT TO ROOM AT 1755. PT TRANSFERED TO BED WITH 3 PERSON ASSIST WITH SLIDER SHEET. PT ORIENTED TO ROOM AND CALL LIGHT. PT A&Ox2; CALM AND COOPERATIVE WITH CARE. PT RESTING IN BED, TURNED ON RIGHT SIDE; ENCOURAGED PT TO ASSIST WITH REPOSITION. PT REPORTS GENERALIZED PAIN, ENCOURAGED REPOSITIONING AND REST. PT SBO WITH EXERTION SPO2 >90% ON RA, LS COARSE, TACHYPNIC; UNALBORED AND EVEN. PT DENIES NAUSEA, DIZZINESS/LIGHTHEADEDNESS. PT RECIEVING IV ANTIBITOICS. VSS. NO OTHER ACUTE CHANGES NOTED. WILL CONTINUE TO MONITOR UNTIL REPORT GIVEN TO ONCOMING RN.
[2019-04-27 04:32] LABS: BASOPHILS ABSOLUTE AUTO 0.02 K/mm3 (0.00-0.23); BASOPHILS PERCENT AUTO 0 % (0-2); EOSINOPHILS ABSOLUTE AUTO 0.09 K/mm3 (0.00-0.68); EOSINOPHILS PERCENT AUTO 1 % (0-6); Hematocrit 28.6 % (33.0-51.0); IMMATURE GRAN ABSOLUTE AUTO 0.03 K/mm3 (0.00-0.10); IMMATURE GRAN PERCENT AUTO 0 % (0-1); LYMPHOCYTES ABSOLUTE AUTO 1.74 K/mm3 (0.84-5.20); LYMPHOCYTES PERCENT AUTO 18 % (21-46); MONOCYTES ABSOLUTE AUTO 0.54 K/mm3 (0.16-1.47); MONOCYTES PERCENT AUTO 6 % (4-13); Mean Corpuscular HGB 28.4 pg (26.0-34.0); Mean Corpuscular HGB Conc 31.5 g/dL (31.5-36.5); Mean Corpuscular Volume 90 fL (80-100); Mean Platelet Volume 10.3 fL (9.1-12.4); NEUTROPHILS ABSOLUTE AUTO 7.38 K/mm3 (1.96-9.15); NEUTROPHILS PERCENT AUTO 75 % (41-73); Platelet Count 239 K/mm3 (150-400); RDW Coefficient Variation 18.1 % (11.7-14.2); RDW Standard Deviation 60.3 fL (35.1-46.3); Red Blood Cell Count 3.17 M/mm3 (3.80-5.20)
--- NOTE | 2019-04-27 04:51 | NUR ---
SHIFT SUMMARY PT A&O X3; REFUSES BIPAP; O2 SATS >94 ON 2L NC; PT DESATS WHEN SLEEPING; RA WHEN AWAKE; COURSE LUNG SOUNDS W/ EXP WHEEZES; RT AT BEDSIDE TO CHECK PT; VSS; DENIES CHEST PAIN; WOUND VAC CHANGED AND NEW DRESSING APPLIED W/ ENTERPRISE ARCHITECT MANAGER; WOUND ON R FOOT APPROXIMATELY 5.5 CM X 2.5 CM; PT TOLERATED WELL; SANCHEZ PATENT AND DRAINING YELLOW; PT DENIES NEEDS AT THIS TIME; WILL CONTINUE TO MONITOR UNTIL HAND OFF TO DAY SHIFT RN.
[2019-04-27 04:52] LABS: Anion Gap 8 mmol/L (6-16); Blood Urea Nitrogen 55 mg/dL (8-24); Bun/Creatinine Ratio 35.7 (12.0-20.0); CO2, Blood 24 mmol/L (21-32); Calcium, Blood 8.6 mg/dL (8.5-10.1); Chloride, Blood 101 mmol/L (98-108); Creatinine, Blood 1.54 mg/dL (0.40-1.00); Glomerular Filtration Rate 37 (60-); Glucose, Blood 103 mg/dL (70-99); Phosphorus, Blood 3.3 mg/dL (2.5-4.9); Potassium, Blood 3.6 mmol/L (3.5-5.5); Sodium, Blood 133 mmol/L (136-145)
[2019-04-27 12:24] LABS: U Amphetamine Screen Not Detected; U Barbituate Screen Not Detected; U Benzodiazapine Screen Not Detected; U Buprenorphine Screen Not Detected; U Cannabinoids Screen Not Detected; U Cocaine Screen Not Detected; U Methadone Screen Not Detected; U Methamphetamine Screen Not Detected; U Opiates Screen Not Detected; U Oxycodone Screen Not Detected; U Propoxyphene Screen Not Detected
--- NOTE | 2019-04-27 19:24 | NUR ---
SHIFT SUMMARY PT RESPONDS TO VERBAL STIMULI THIS AM; MORE ALERT THIS AFTERNOON; ORIENTED TO PERSON AND PLACE; UNSURE OF DATE BUT KNOWS YEAR AND PRESIDENT; AND NOT SURE WHY SHE IS HERE. PT RESTING IN BED FOR MAJORITY OF SHIFT, 2 PERSON ASSIST TO CHAIR FOR FOR TUBE MANAGEMENT. PT REPORTS PAIN T/O SHIFT, MEDICATED x1 TYLENOL. PT SPO2 DESATURATES TO 84-85 WHILE SLEEPING ON RA; 2L O2 IN PLACE WHILE PT SLEEP; OTHERWISE SPO2 >90% ON RA, LS COARSE WITH WHEEZES IN UPPER LOBES. PT DENIES NAUSEA, CHEST PAIN/PRESSURE AND DIZZINESS. PT RECEIVING IV ANTIBIOTICS. SANCHEZ IN PLACE; PATENT AND DRAINING. PT CALLS OUT IN PAIN AND FOR ASSISTANCE RATHER THEN USING CALL LIGHT, EDUCATED PT TO USE CALL LIGHT. PT REQUESTING TO BE REPOSITIONED T/O SHIFT, PT ABLE TO REPOSITION SELF WITH ENCOURAGEMENT. VSS. NO OTHER ACUTE CHANGES NOTED DURING SHIFT. REPORT GIVEN TO ONCOMING RN.
[2019-04-28 04:09] LABS: Hematocrit 29.3 % (33.0-51.0); Hemoglobin 9.4 g/dL (11.5-16.0); Mean Corpuscular HGB 28.8 pg (26.0-34.0); Mean Corpuscular HGB Conc 32.1 g/dL (31.5-36.5); Mean Corpuscular Volume 90 fL (80-100); Mean Platelet Volume 10.3 fL (9.1-12.4); Platelet Count 277 K/mm3 (150-400); RDW Coefficient Variation 18.1 % (11.7-14.2); RDW Standard Deviation 59.8 fL (35.1-46.3); Red Blood Cell Count 3.26 M/mm3 (3.80-5.20); White Blood Cell Count 9.21 K/mm3 (4.00-11.30)
[2019-04-28 04:27] LABS: Albumin, Blood 2.2 g/dL (3.4-5.0); Anion Gap 7 mmol/L (6-16); Blood Urea Nitrogen 48 mg/dL (8-24); Bun/Creatinine Ratio 42.5 (12.0-20.0); CO2, Blood 27 mmol/L (21-32); Calcium, Blood 8.8 mg/dL (8.5-10.1); Chloride, Blood 98 mmol/L (98-108); Creatinine, Blood 1.13 mg/dL (0.40-1.00); Glomerular Filtration Rate 53 (60-); Glucose, Blood 275 mg/dL (70-99); Phosphorus, Blood 2.3 mg/dL (2.5-4.9); Potassium, Blood 3.9 mmol/L (3.5-5.5); Sodium, Blood 132 mmol/L (136-145)
--- NOTE | 2019-04-28 04:44 | NUR ---
SHIFT SUMMARY: PATIENT UP SEVERAL TIMES THIS SHIFT, SITTING ON EDGE OF BED. PATIENT TANGLED UP IN BED SHEETS, WOUNDVAC LINES AND SANCHEZ LINES. PATIENT C/O DISCOMFORT FROM SANCHEZ, STAFF EDUCATED PATIENT ON PAIN CAUSED BY TUGGING AT LINE. PATIENT ENCOURAGED TO TURN IN BED, PATIENT ABLE TO PULL HERSELF UP BED USING HANDLES AT TOP OF BED, NO ASSISTANCE FROM STAFF NEEDED. VSS, CALL LIGHT WITHIN REACH AND NOT USED APPROPRIATLY. BED LOW AND LOCKED WITH EXIT ALARM ON.
[2019-04-28 05:35] LABS: BASOPHILS ABSOLUTE MAN 0.09 K/mm3 (0.00-0.23); BASOPHILS PERCENT MAN 1 % (0-2); EOSINOPHILS ABSOLUTE MAN 0.18 K/mm3 (0.00-0.68); EOSINOPHILS PERCENT MAN 2 % (0-6); LYMPHOCYTES % ATYPICAL MANUAL 1 % (0-0); LYMPHOCYTES ABSOLUTE MAN 1.65 K/mm3 (0.84-5.20); LYMPHOCYTES PERCENT MAN 17 % (21-46); MONOCYTES ABSOLUTE MAN 0.46 K/mm3 (0.16-1.47); MONOCYTES PERCENT MAN 5 % (4-13); NEUTROPHILS ABSOLUTE MAN 6.81 K/mm3 (1.96-9.15); SEG NEUTROPHILS PERCENT MAN 74 % (41-73); TOTAL CELLS COUNTED 100
--- NOTE | 2019-04-28 15:31 | NUR ---
SHE CALLS OUT WHEN SHE IS UPSET OR NEEDS SOMETHING. SHE WILL CRY OUT THAT SHE IS COLD BUT DOESN'T THINK TO PULL UP THE COVERS. WOUND VAC IN PLACE LT FOOT. NO PROBLEMS. CREAM ON RED BOTTOM CREASE. MILD EDEMA IN LOWER LEGS AND FEET. SHE HAS A LOOOSE COUGH BUT NO SPUTUM EXPECTORATED. CGB'S MID 200'S.
--- NOTE | 2019-04-28 19:34 | NUR ---
NO CHANGES EXCEPT SHE IS MORE ANXIOUS AFTER DINNER. SHE WAS IN THE CHAIR OR DANGLED SEVERAL TIMES TODAY. SHE HAD A NICE BEDBATH THIS EVENING. LAURA THAPA.
[2019-04-29 03:56] LABS: Hematocrit 30.2 % (33.0-51.0); Hemoglobin 9.4 g/dL (11.5-16.0); Mean Corpuscular HGB 28.1 pg (26.0-34.0); Mean Corpuscular HGB Conc 31.1 g/dL (31.5-36.5); Mean Corpuscular Volume 90 fL (80-100); Platelet Count 314 K/mm3 (150-400); RDW Coefficient Variation 17.9 % (11.7-14.2); RDW Standard Deviation 58.6 fL (35.1-46.3); Red Blood Cell Count 3.35 M/mm3 (3.80-5.20)
[2019-04-29 04:15] LABS: Anion Gap 5 mmol/L (6-16); Blood Urea Nitrogen 40 mg/dL (8-24); Bun/Creatinine Ratio 44.3 (12.0-20.0); CO2, Blood 28 mmol/L (21-32); Chloride, Blood 98 mmol/L (98-108); Glomerular Filtration Rate >60 (60-); Glucose, Blood 253 mg/dL (70-99); Magnesium, Blood 1.9 mg/dL (1.6-2.4); Potassium, Blood 4.5 mmol/L (3.5-5.5); Sodium, Blood 131 mmol/L (136-145)
[2019-04-29 05:34] LABS: BASOPHILS PERCENT MAN 0 % (0-2); EOSINOPHILS ABSOLUTE MAN 0.17 K/mm3 (0.00-0.68); EOSINOPHILS PERCENT MAN 2 % (0-6); LYMPHOCYTES ABSOLUTE MAN 2.11 K/mm3 (0.84-5.20); LYMPHOCYTES PERCENT MAN 24 % (21-46); METAMYELOCYTE ABSOLUTE MAN 0.08 K/mm3 (0.00-0.00); METAMYELOCYTE PERCENT MAN 1 % (0-0); MONOCYTES ABSOLUTE MAN 0.52 K/mm3 (0.16-1.47); MONOCYTES PERCENT MAN 6 % (4-13); NEUTROPHILS ABSOLUTE MAN 5.89 K/mm3 (1.96-9.15); SEG NEUTROPHILS PERCENT MAN 67 % (41-73); TOTAL CELLS COUNTED 100
--- NOTE | 2019-04-29 07:21 | NUR ---
The pt is pulling off all her telemetry leads, stating that she doesn't want the damn thing any more. STates that she is going home today, no matter what. NURSE OB reports that she is angry, irritable, and complaining about care. Asking for juice but NURSE OB told she would have to check with the primary RN since the blood sugar checked just recently is over 200.
[2019-04-29] MEDS ORDERED: FURO20 PO ×2 (11:05)
[2019-04-29] MEDS ORDERED: ACET325 PO ×2 (11:05)
[2019-04-29] MEDS ORDERED: Vsl#3 Capsule1 EACH PO ×2 (11:07)
[2019-04-29] MEDS ORDERED: Lisinopril2.5 MG PO ×2 (11:08)
[2019-04-29] MEDS ORDERED: K-Phos Origina500 MG PO ×2 (11:10)
[2019-04-29] MEDS ORDERED: CEFP200 PO ×2 (11:11)
--- NOTE | 2019-04-29 13:27 | NUR ---
DISCHARGE NOTE PT ALERT AND ORIENTED. WOUND VAC TO RIGHT LOWER EXTREMITY CHANGED TODAY. DISCHARGE INSTRUCTIONS PROVIDED. PT EDUCATED ON NEW MEDICATIONS. PT INSTRUCTED TO FOLLOW-UP WITH WOUND CLINIC AND APPTS HAVE BEEN MADE FOR HER. PT TAKEN OUT BY WHEELCHAIR.
== END 2019-04-29 13:26 | disposition home health service (06) | DRG 871 ==
LOC: ER 12:55 → ICUW 16:25 → PCU 16:25 → ICUW 18:05 → PCU 04-26 17:55
PROVIDERS: Internal Medicine; Internal Medicine Critical Care Medicine; Physician Assistant; ADMIT Internal Medicine
PROC: 5A09357 Assistance with Respiratory Ventilation, Less than 24 Consecutive Hours, Continuous Positive Airway Pressure (ICD-10-PCS; principal; 2019-04-25)
DX: A40.3 Sepsis due to Streptococcus pneumoniae (principal); I50.33 Acute on chronic diastolic (congestive) heart failure; J96.21 Acute and chronic respiratory failure with hypoxia; J13 Pneumonia due to Streptococcus pneumoniae; J44.1 Chronic obstructive pulmonary disease with (acute) exacerbation; J44.0 Chronic obstructive pulmonary disease with (acute) lower respiratory infection; M86.9 Osteomyelitis, unspecified; I13.0 Hypertensive heart and chronic kidney disease with heart failure and stage 1 through stage 4 chronic kidney disease, or unspecified chronic kidney disease; E66.01 Morbid (severe) obesity due to excess calories; Z79.4 Long term (current) use of insulin; Z90.13 Acquired absence of bilateral breasts and nipples; Z87.891 Personal history of nicotine dependence; Z89.421 Acquired absence of other right toe(s); E03.9 Hypothyroidism, unspecified; N18.3 Chronic kidney disease, stage 3 (moderate); I70.209 Unspecified atherosclerosis of native arteries of extremities, unspecified extremity; Z68.32 Body mass index [BMI] 32.0-32.9, adult
CPT/HCPCS: 0099U; 36415; 36600; 51702; 71045; 71046; 80048; 80053; 80069; 81001; 82040; 82550; 82803; 82947; 83605; 83735; 83880; 84100; 84145; 84484; 85025; 87040; 87186; 87804; 93005; 93010; 93306; 94640; 94644; 94660; 94762; 96365-59; 96366-59; 96375-59; 99285-25; A9270; J0692; J0696; J1650; J1940; J1956; J2060; J2405; J2543; J3370; J3475; J7050

== ENCOUNTER 2019-05-02 00:28 | Day surgery (SDC) | payer MEDICARE, OTHER ==
[~2019-05-02 00:28] MED LIST changes: +CEFP200 PO; +K-Phos Origina500 MG PO; +Lisinopril2.5 MG PO; +NEURONTIN300 MG PO; +Vsl#3 Capsule1 EACH PO
== END 2019-05-02 23:18 | disposition home or self-care (01) ==
LOC: HBO 00:28
DX: E11.621 Type 2 diabetes mellitus with foot ulcer (principal); L97.515 Non-pressure chronic ulcer of other part of right foot with muscle involvement without evidence of necrosis; Z79.4 Long term (current) use of insulin; Z79.899 Other long term (current) drug therapy
CPT/HCPCS: 82947; G0277

== ENCOUNTER 2019-05-03 00:10 | Day surgery (SDC) | payer MEDICARE, OTHER | END 2019-05-03 23:04 | disposition home or self-care (01) | LOC: HBO 00:10 | DX: E11.621 Type 2 diabetes mellitus with foot ulcer (principal); L97.515 Non-pressure chronic ulcer of other part of right foot with muscle involvement without evidence of necrosis; Z79.4 Long term (current) use of insulin | CPT/HCPCS: 82947; G0277 ==

== ENCOUNTER 2019-05-04 00:13 | Day surgery (SDC) | payer MEDICARE, OTHER | END 2019-05-04 22:59 | disposition home or self-care (01) | LOC: HBO 00:13 | DX: E11.621 Type 2 diabetes mellitus with foot ulcer (principal); L97.515 Non-pressure chronic ulcer of other part of right foot with muscle involvement without evidence of necrosis; Z79.4 Long term (current) use of insulin | CPT/HCPCS: 82947; G0277 ==

== ENCOUNTER 2019-05-11 15:15 | Day surgery (SDC) | payer MEDICARE, OTHER | END 2019-05-11 23:00 | disposition home or self-care (01) | LOC: HBO 15:15 | DX: E11.621 Type 2 diabetes mellitus with foot ulcer (principal); L97.515 Non-pressure chronic ulcer of other part of right foot with muscle involvement without evidence of necrosis; Z79.4 Long term (current) use of insulin | CPT/HCPCS: 82947; G0277 ==

== ENCOUNTER 2019-05-12 00:15 | Day surgery (SDC) | payer MEDICARE, OTHER | END 2019-05-12 03:39 | LOC: HBO 00:15 | DX: E11.621 Type 2 diabetes mellitus with foot ulcer (principal); L97.515 Non-pressure chronic ulcer of other part of right foot with muscle involvement without evidence of necrosis; Z79.4 Long term (current) use of insulin | CPT/HCPCS: 82947; G0463 ==

== ENCOUNTER 2019-05-17 01:53 | Day surgery (SDC) | payer MEDICARE, OTHER | END 2019-05-17 03:40 | disposition home or self-care (01) | LOC: HBO 01:53 | DX: E11.621 Type 2 diabetes mellitus with foot ulcer (principal); L97.515 Non-pressure chronic ulcer of other part of right foot with muscle involvement without evidence of necrosis; Z79.4 Long term (current) use of insulin | CPT/HCPCS: 82947; G0277 ==

== ENCOUNTER 2019-05-18 00:30 | Day surgery (SDC) | payer MEDICARE, OTHER | END 2019-05-18 22:55 | disposition home or self-care (01) | LOC: HBO 00:30 | DX: E11.621 Type 2 diabetes mellitus with foot ulcer (principal); L97.515 Non-pressure chronic ulcer of other part of right foot with muscle involvement without evidence of necrosis; Z79.4 Long term (current) use of insulin | CPT/HCPCS: 82947; G0277 ==

== ENCOUNTER 2019-05-20 01:03 | Day surgery (SDC) | payer MEDICARE, OTHER | END 2019-05-20 23:53 | disposition home or self-care (01) | LOC: HBO 01:03 | DX: E11.621 Type 2 diabetes mellitus with foot ulcer (principal); L97.515 Non-pressure chronic ulcer of other part of right foot with muscle involvement without evidence of necrosis; Z79.4 Long term (current) use of insulin | CPT/HCPCS: 82947; G0277 ==

== ENCOUNTER 2019-05-24 00:47 | Day surgery (SDC) | payer MEDICARE, OTHER | END 2019-05-24 12:00 | disposition home or self-care (01) | LOC: HBO 00:47 | DX: E11.621 Type 2 diabetes mellitus with foot ulcer (principal); L97.515 Non-pressure chronic ulcer of other part of right foot with muscle involvement without evidence of necrosis; Z79.4 Long term (current) use of insulin | CPT/HCPCS: 82947; G0277 ==

== ENCOUNTER 2019-05-27 01:43 | Day surgery (SDC) | payer MEDICARE, OTHER | END 2019-05-27 23:25 | disposition home or self-care (01) | LOC: HBO → WOUND 11:10 → HBO 11:12 | DX: E11.621 Type 2 diabetes mellitus with foot ulcer (principal); L97.515 Non-pressure chronic ulcer of other part of right foot with muscle involvement without evidence of necrosis | CPT/HCPCS: 82947; G0277 ==

== ENCOUNTER 2019-05-30 00:09 | Day surgery (SDC) | payer MEDICARE, OTHER | END 2019-05-30 12:00 | disposition home or self-care (01) | LOC: HBO | DX: E11.621 Type 2 diabetes mellitus with foot ulcer (principal); L97.515 Non-pressure chronic ulcer of other part of right foot with muscle involvement without evidence of necrosis; Z79.4 Long term (current) use of insulin | CPT/HCPCS: 82947; G0277 ==

== ENCOUNTER 2019-05-31 00:16 | Day surgery (SDC) | payer MEDICARE, OTHER | END 2019-05-31 22:54 | disposition home or self-care (01) | LOC: HBO | DX: E11.621 Type 2 diabetes mellitus with foot ulcer (principal); L97.515 Non-pressure chronic ulcer of other part of right foot with muscle involvement without evidence of necrosis; Z79.4 Long term (current) use of insulin | CPT/HCPCS: 82947; G0277 ==

== ENCOUNTER 2019-06-01 | Day surgery (SDC) | payer MEDICARE, OTHER | END 2019-06-07 22:53 | disposition home or self-care (01) | LOC: HBO | DX: E11.621 Type 2 diabetes mellitus with foot ulcer (principal); L97.515 Non-pressure chronic ulcer of other part of right foot with muscle involvement without evidence of necrosis | CPT/HCPCS: G0277 ==

== ENCOUNTER 2019-06-01 00:12 | Day surgery (SDC) | payer MEDICARE, OTHER | END 2019-06-01 22:45 | disposition home or self-care (01) | LOC: HBO 00:12 | DX: E11.621 Type 2 diabetes mellitus with foot ulcer (principal); L97.515 Non-pressure chronic ulcer of other part of right foot with muscle involvement without evidence of necrosis; Z79.4 Long term (current) use of insulin | CPT/HCPCS: 82947 ==

== ENCOUNTER 2019-06-02 00:21 | Day surgery (SDC) | payer MEDICARE, OTHER | END 2019-06-02 22:59 | disposition home or self-care (01) | LOC: HBO 00:21 | DX: E11.621 Type 2 diabetes mellitus with foot ulcer (principal); L97.515 Non-pressure chronic ulcer of other part of right foot with muscle involvement without evidence of necrosis | CPT/HCPCS: 82947; G0277 ==

== ENCOUNTER 2019-06-20 00:41 | Day surgery (SDC) | payer MEDICARE, OTHER | END 2019-06-20 22:42 | disposition home or self-care (01) | LOC: HBO 00:41 | DX: E11.621 Type 2 diabetes mellitus with foot ulcer (principal); L97.515 Non-pressure chronic ulcer of other part of right foot with muscle involvement without evidence of necrosis; Z79.4 Long term (current) use of insulin; Z79.899 Other long term (current) drug therapy | CPT/HCPCS: 82947; G0277 ==

== ENCOUNTER 2019-06-21 00:11 | Day surgery (SDC) | payer MEDICARE, OTHER | END 2019-06-21 22:57 | disposition home or self-care (01) | LOC: HBO 00:11 | DX: E11.621 Type 2 diabetes mellitus with foot ulcer (principal); L97.515 Non-pressure chronic ulcer of other part of right foot with muscle involvement without evidence of necrosis; Z79.4 Long term (current) use of insulin | CPT/HCPCS: 36415; 82947; 83036; 84443; G0277 ==

== ENCOUNTER 2019-06-23 00:13 | Day surgery (SDC) | payer MEDICARE, OTHER | END 2019-06-23 23:57 | disposition home or self-care (01) | LOC: HBO 00:13 | DX: E11.621 Type 2 diabetes mellitus with foot ulcer (principal); L97.515 Non-pressure chronic ulcer of other part of right foot with muscle involvement without evidence of necrosis; Z79.4 Long term (current) use of insulin | CPT/HCPCS: 82947; G0277 ==

== ENCOUNTER 2019-06-24 01:12 | Day surgery (SDC) | payer MEDICARE, OTHER | END 2019-06-24 23:04 | disposition home or self-care (01) | LOC: HBO 01:12 | DX: E11.621 Type 2 diabetes mellitus with foot ulcer (principal); L97.515 Non-pressure chronic ulcer of other part of right foot with muscle involvement without evidence of necrosis; Z79.2 Long term (current) use of antibiotics; Z79.899 Other long term (current) drug therapy | CPT/HCPCS: 82947; G0277 ==

== ENCOUNTER 2019-06-27 00:14 | Day surgery (SDC) | payer MEDICARE, OTHER | END 2019-06-27 23:11 | disposition home or self-care (01) | LOC: HBO | DX: E11.621 Type 2 diabetes mellitus with foot ulcer (principal); L97.515 Non-pressure chronic ulcer of other part of right foot with muscle involvement without evidence of necrosis | CPT/HCPCS: 82947; G0277 ==

== ENCOUNTER 2019-06-28 00:39 | Day surgery (SDC) | payer MEDICARE, OTHER | END 2019-06-28 22:51 | disposition home or self-care (01) | LOC: HBO | DX: E11.621 Type 2 diabetes mellitus with foot ulcer (principal); L97.515 Non-pressure chronic ulcer of other part of right foot with muscle involvement without evidence of necrosis | CPT/HCPCS: 82947; G0277 ==

== ENCOUNTER 2019-07-01 00:10 | Day surgery (SDC) | payer MEDICARE, OTHER | END 2019-07-01 22:39 | disposition home or self-care (01) | LOC: WOUND 00:10 | DX: E11.621 Type 2 diabetes mellitus with foot ulcer (principal); L97.515 Non-pressure chronic ulcer of other part of right foot with muscle involvement without evidence of necrosis; E11.51 Type 2 diabetes mellitus with diabetic peripheral angiopathy without gangrene; E11.42 Type 2 diabetes mellitus with diabetic polyneuropathy; I10 Essential (primary) hypertension; E03.9 Hypothyroidism, unspecified; J44.9 Chronic obstructive pulmonary disease, unspecified; I25.10 Atherosclerotic heart disease of native coronary artery without angina pectoris; Z79.899 Other long term (current) drug therapy; Z85.3 Personal history of malignant neoplasm of breast; Z87.891 Personal history of nicotine dependence; Z89.421 Acquired absence of other right toe(s); Z95.1 Presence of aortocoronary bypass graft ==

== ENCOUNTER 2019-07-05 00:04 | Day surgery (SDC) | payer MEDICARE, OTHER | END 2019-07-05 22:58 | disposition home or self-care (01) | LOC: HBO 00:04 | DX: A49.02 Methicillin resistant Staphylococcus aureus infection, unspecified site (principal); Z53.9 Procedure and treatment not carried out, unspecified reason ==

== ENCOUNTER 2019-07-06 00:25 | Day surgery (SDC) | payer MEDICARE, OTHER | END 2019-07-06 22:40 | disposition home or self-care (01) | LOC: HBO 00:25 | DX: E11.621 Type 2 diabetes mellitus with foot ulcer (principal); L97.515 Non-pressure chronic ulcer of other part of right foot with muscle involvement without evidence of necrosis; Z79.4 Long term (current) use of insulin | CPT/HCPCS: 82947; G0277 ==

== ENCOUNTER 2019-07-07 00:14 | Day surgery (SDC) | payer MEDICARE, OTHER | END 2019-07-07 22:54 | disposition home or self-care (01) | LOC: HBO 00:14 | DX: E11.621 Type 2 diabetes mellitus with foot ulcer (principal); L97.515 Non-pressure chronic ulcer of other part of right foot with muscle involvement without evidence of necrosis | CPT/HCPCS: 82947; G0277 ==

== ENCOUNTER 2019-07-08 00:12 | Day surgery (SDC) | payer MEDICARE, OTHER | END 2019-07-08 23:01 | disposition home or self-care (01) | LOC: WOUND 00:12 | DX: E11.621 Type 2 diabetes mellitus with foot ulcer (principal); L97.522 Non-pressure chronic ulcer of other part of left foot with fat layer exposed; Z79.4 Long term (current) use of insulin; Z79.899 Other long term (current) drug therapy ==

== ENCOUNTER 2019-07-08 00:20 | Day surgery (SDC) | payer MEDICARE, OTHER | END 2019-07-08 23:04 | disposition home or self-care (01) | LOC: HBO | DX: E11.621 Type 2 diabetes mellitus with foot ulcer (principal); L97.515 Non-pressure chronic ulcer of other part of right foot with muscle involvement without evidence of necrosis; Z79.4 Long term (current) use of insulin | CPT/HCPCS: 82947; G0277 ==

== ENCOUNTER 2019-07-11 00:14 | Day surgery (SDC) | payer MEDICARE, OTHER | END 2019-07-11 22:51 | disposition home or self-care (01) | LOC: HBO 00:14 | DX: E11.621 Type 2 diabetes mellitus with foot ulcer (principal); L97.515 Non-pressure chronic ulcer of other part of right foot with muscle involvement without evidence of necrosis; S81.801D Unspecified open wound, right lower leg, subsequent encounter; Z79.899 Other long term (current) drug therapy; Z79.4 Long term (current) use of insulin | CPT/HCPCS: 82947; G0277 ==

== ENCOUNTER 2019-07-12 00:22 | Day surgery (SDC) | payer MEDICARE, OTHER | END 2019-07-12 22:56 | disposition home or self-care (01) | LOC: HBO 00:22 | DX: E11.621 Type 2 diabetes mellitus with foot ulcer (principal); L97.515 Non-pressure chronic ulcer of other part of right foot with muscle involvement without evidence of necrosis; S81.801A Unspecified open wound, right lower leg, initial encounter; X58.XXXA Exposure to other specified factors, initial encounter | CPT/HCPCS: 82947; G0277 ==

== ENCOUNTER 2019-07-14 10:04 | Day surgery (SDC) | payer MEDICARE, OTHER | END 2019-07-14 22:50 | disposition home or self-care (01) | LOC: HBO 10:04 | DX: E11.621 Type 2 diabetes mellitus with foot ulcer (principal); L97.515 Non-pressure chronic ulcer of other part of right foot with muscle involvement without evidence of necrosis; S81.801D Unspecified open wound, right lower leg, subsequent encounter; Z79.4 Long term (current) use of insulin | CPT/HCPCS: 82947; G0277 ==

== ENCOUNTER 2019-07-19 00:30 | Day surgery (SDC) | payer MEDICARE, OTHER | END 2019-07-19 22:40 | disposition home or self-care (01) | LOC: HBO 00:30 | DX: E11.621 Type 2 diabetes mellitus with foot ulcer (principal); L97.515 Non-pressure chronic ulcer of other part of right foot with muscle involvement without evidence of necrosis; S81.801A Unspecified open wound, right lower leg, initial encounter; X58.XXXA Exposure to other specified factors, initial encounter; Z79.899 Other long term (current) drug therapy | CPT/HCPCS: 82947; G0277 ==

== ENCOUNTER 2019-07-20 00:21 | Day surgery (SDC) | payer MEDICARE, OTHER | END 2019-07-20 22:59 | disposition home or self-care (01) | LOC: HBO 00:21 | DX: E11.621 Type 2 diabetes mellitus with foot ulcer (principal); L97.515 Non-pressure chronic ulcer of other part of right foot with muscle involvement without evidence of necrosis; S81.801D Unspecified open wound, right lower leg, subsequent encounter; Z79.4 Long term (current) use of insulin | CPT/HCPCS: 82947; G0277 ==

== ENCOUNTER 2019-07-22 00:20 | Day surgery (SDC) | payer MEDICARE, OTHER | END 2019-07-22 22:43 | disposition home or self-care (01) | LOC: HBO 00:20 | DX: E11.621 Type 2 diabetes mellitus with foot ulcer (principal); L97.515 Non-pressure chronic ulcer of other part of right foot with muscle involvement without evidence of necrosis; S81.801A Unspecified open wound, right lower leg, initial encounter; X58.XXXA Exposure to other specified factors, initial encounter; Z79.4 Long term (current) use of insulin; Z79.899 Other long term (current) drug therapy | CPT/HCPCS: 82947; G0277 ==

== ENCOUNTER 2019-07-22 00:22 | Day surgery (SDC) | payer MEDICARE, OTHER | END 2019-07-22 22:43 | disposition home or self-care (01) | LOC: WOUND 00:22 | DX: E11.621 Type 2 diabetes mellitus with foot ulcer (principal); L97.515 Non-pressure chronic ulcer of other part of right foot with muscle involvement without evidence of necrosis; L97.522 Non-pressure chronic ulcer of other part of left foot with fat layer exposed; S81.801D Unspecified open wound, right lower leg, subsequent encounter; X58.XXXD Exposure to other specified factors, subsequent encounter; I10 Essential (primary) hypertension; E11.40 Type 2 diabetes mellitus with diabetic neuropathy, unspecified; E03.9 Hypothyroidism, unspecified; J44.9 Chronic obstructive pulmonary disease, unspecified; I25.10 Atherosclerotic heart disease of native coronary artery without angina pectoris; Z87.891 Personal history of nicotine dependence; Z95.1 Presence of aortocoronary bypass graft; Z79.899 Other long term (current) drug therapy; Z79.4 Long term (current) use of insulin ==

== ENCOUNTER 2019-07-25 00:25 | Day surgery (SDC) | payer MEDICARE, OTHER | END 2019-07-25 22:47 | disposition home or self-care (01) | LOC: HBO 00:25 | DX: E11.621 Type 2 diabetes mellitus with foot ulcer (principal); L97.515 Non-pressure chronic ulcer of other part of right foot with muscle involvement without evidence of necrosis; L97.522 Non-pressure chronic ulcer of other part of left foot with fat layer exposed; S81.801D Unspecified open wound, right lower leg, subsequent encounter; Z79.4 Long term (current) use of insulin | CPT/HCPCS: 82947; G0277 ==

== ENCOUNTER 2019-07-26 00:10 | Day surgery (SDC) | payer MEDICARE, OTHER | END 2019-07-26 22:38 | disposition home or self-care (01) | LOC: HBO 00:10 | DX: E11.621 Type 2 diabetes mellitus with foot ulcer (principal); L97.515 Non-pressure chronic ulcer of other part of right foot with muscle involvement without evidence of necrosis; L97.522 Non-pressure chronic ulcer of other part of left foot with fat layer exposed; S81.801D Unspecified open wound, right lower leg, subsequent encounter; Z79.4 Long term (current) use of insulin | CPT/HCPCS: 82947; G0277 ==

== ENCOUNTER 2019-07-27 00:13 | Day surgery (SDC) | payer MEDICARE, OTHER | END 2019-07-27 22:45 | disposition home or self-care (01) | LOC: HBO 00:13 | DX: E11.621 Type 2 diabetes mellitus with foot ulcer (principal); L97.515 Non-pressure chronic ulcer of other part of right foot with muscle involvement without evidence of necrosis; L97.522 Non-pressure chronic ulcer of other part of left foot with fat layer exposed; S81.801D Unspecified open wound, right lower leg, subsequent encounter; X58.XXXD Exposure to other specified factors, subsequent encounter; Z79.4 Long term (current) use of insulin; Z79.899 Other long term (current) drug therapy | CPT/HCPCS: 82947; G0277 ==

== ENCOUNTER 2019-07-28 00:17 | Day surgery (SDC) | payer MEDICARE, OTHER | END 2019-07-28 23:16 | disposition home or self-care (01) | LOC: HBO 00:17 | DX: E11.621 Type 2 diabetes mellitus with foot ulcer (principal); L97.515 Non-pressure chronic ulcer of other part of right foot with muscle involvement without evidence of necrosis; L97.522 Non-pressure chronic ulcer of other part of left foot with fat layer exposed; S81.801D Unspecified open wound, right lower leg, subsequent encounter; Z79.4 Long term (current) use of insulin | CPT/HCPCS: 82947; G0277 ==

== ENCOUNTER 2019-07-29 00:21 | Day surgery (SDC) | payer MEDICARE, OTHER | END 2019-07-29 23:04 | disposition home or self-care (01) | LOC: HBO → WOUND 00:21 → HBO 14:16 → WOUND 14:17 | DX: E11.621 Type 2 diabetes mellitus with foot ulcer (principal); L97.515 Non-pressure chronic ulcer of other part of right foot with muscle involvement without evidence of necrosis; L97.522 Non-pressure chronic ulcer of other part of left foot with fat layer exposed; S81.801D Unspecified open wound, right lower leg, subsequent encounter; E11.42 Type 2 diabetes mellitus with diabetic polyneuropathy; I10 Essential (primary) hypertension; J44.9 Chronic obstructive pulmonary disease, unspecified; Z87.891 Personal history of nicotine dependence; Z79.899 Other long term (current) drug therapy; Z79.4 Long term (current) use of insulin | CPT/HCPCS: G0277 ==

== ENCOUNTER 2019-07-29 00:23 | Day surgery (SDC) | payer MEDICARE, OTHER | END 2019-07-29 23:04 | disposition home or self-care (01) | LOC: WOUND → HBO 00:23 | DX: E11.621 Type 2 diabetes mellitus with foot ulcer (principal); L97.515 Non-pressure chronic ulcer of other part of right foot with muscle involvement without evidence of necrosis; L97.522 Non-pressure chronic ulcer of other part of left foot with fat layer exposed; S81.801D Unspecified open wound, right lower leg, subsequent encounter; Z79.899 Other long term (current) drug therapy; Z79.4 Long term (current) use of insulin | CPT/HCPCS: 82947; G0277 ==

== ENCOUNTER 2019-08-01 00:24 | Day surgery (SDC) | payer MEDICARE, OTHER | END 2019-08-01 22:49 | disposition home or self-care (01) | LOC: HBO 00:24 | DX: E11.621 Type 2 diabetes mellitus with foot ulcer (principal); L97.515 Non-pressure chronic ulcer of other part of right foot with muscle involvement without evidence of necrosis; L97.522 Non-pressure chronic ulcer of other part of left foot with fat layer exposed; Z79.4 Long term (current) use of insulin; Z79.899 Other long term (current) drug therapy; Z79.2 Long term (current) use of antibiotics | CPT/HCPCS: 82947; G0277 ==

== ENCOUNTER 2019-08-02 00:12 | Day surgery (SDC) | payer MEDICARE, OTHER | END 2019-08-02 22:54 | disposition home or self-care (01) | LOC: HBO 00:12 | DX: E11.621 Type 2 diabetes mellitus with foot ulcer (principal); L97.515 Non-pressure chronic ulcer of other part of right foot with muscle involvement without evidence of necrosis; L97.522 Non-pressure chronic ulcer of other part of left foot with fat layer exposed; Z79.4 Long term (current) use of insulin; Z79.899 Other long term (current) drug therapy | CPT/HCPCS: 82947; G0277 ==

== ENCOUNTER 2019-08-04 00:13 | Day surgery (SDC) | payer MEDICARE, OTHER | END 2019-08-04 23:53 | disposition home or self-care (01) | LOC: HBO | DX: E11.621 Type 2 diabetes mellitus with foot ulcer (principal); L97.515 Non-pressure chronic ulcer of other part of right foot with muscle involvement without evidence of necrosis; L97.522 Non-pressure chronic ulcer of other part of left foot with fat layer exposed; Z79.4 Long term (current) use of insulin | CPT/HCPCS: 82947; G0277 ==

== ENCOUNTER 2019-08-05 00:18 | Day surgery (SDC) | payer MEDICARE, OTHER | END 2019-08-05 23:30 | disposition home or self-care (01) | LOC: HBO 00:18 | DX: E11.621 Type 2 diabetes mellitus with foot ulcer (principal); L97.515 Non-pressure chronic ulcer of other part of right foot with muscle involvement without evidence of necrosis; L97.522 Non-pressure chronic ulcer of other part of left foot with fat layer exposed; Z79.4 Long term (current) use of insulin; Z79.899 Other long term (current) drug therapy | CPT/HCPCS: 82947; G0277 ==

== ENCOUNTER 2019-08-08 00:48 | Day surgery (SDC) | payer MEDICARE, OTHER | END 2019-08-08 22:52 | disposition home or self-care (01) | LOC: HBO 00:48 | DX: E11.621 Type 2 diabetes mellitus with foot ulcer (principal); L97.515 Non-pressure chronic ulcer of other part of right foot with muscle involvement without evidence of necrosis; L97.522 Non-pressure chronic ulcer of other part of left foot with fat layer exposed; Z79.899 Other long term (current) drug therapy; Z79.4 Long term (current) use of insulin | CPT/HCPCS: 82947; G0277 ==

== ENCOUNTER 2019-08-11 00:10 | Day surgery (SDC) | payer MEDICARE, OTHER | END 2019-08-11 23:27 | disposition home or self-care (01) | LOC: HBO 00:10 | DX: E11.621 Type 2 diabetes mellitus with foot ulcer (principal); L97.515 Non-pressure chronic ulcer of other part of right foot with muscle involvement without evidence of necrosis; L97.522 Non-pressure chronic ulcer of other part of left foot with fat layer exposed; Z79.4 Long term (current) use of insulin | CPT/HCPCS: 82947; G0277 ==

== ENCOUNTER 2019-08-12 00:22 | Day surgery (SDC) | payer MEDICARE, OTHER | END 2019-08-12 23:11 | disposition home or self-care (01) | LOC: HBO 00:22 | DX: E11.621 Type 2 diabetes mellitus with foot ulcer (principal); L97.515 Non-pressure chronic ulcer of other part of right foot with muscle involvement without evidence of necrosis; L97.522 Non-pressure chronic ulcer of other part of left foot with fat layer exposed | CPT/HCPCS: 82947; G0277 ==

== ENCOUNTER 2019-08-12 00:28 | Day surgery (SDC) | payer MEDICARE, OTHER | END 2019-08-12 23:11 | disposition home or self-care (01) | LOC: WOUND 00:28 | DX: E11.621 Type 2 diabetes mellitus with foot ulcer (principal); L97.515 Non-pressure chronic ulcer of other part of right foot with muscle involvement without evidence of necrosis; L97.522 Non-pressure chronic ulcer of other part of left foot with fat layer exposed; E11.42 Type 2 diabetes mellitus with diabetic polyneuropathy; E11.51 Type 2 diabetes mellitus with diabetic peripheral angiopathy without gangrene; I10 Essential (primary) hypertension; J44.9 Chronic obstructive pulmonary disease, unspecified; Z87.891 Personal history of nicotine dependence; Z79.899 Other long term (current) drug therapy; Z79.4 Long term (current) use of insulin | CPT/HCPCS: 87071; 87075; 87077; 87205 ==

== ENCOUNTER 2019-08-16 00:10 | Day surgery (SDC) | payer MEDICARE, OTHER | END 2019-08-16 22:55 | disposition home or self-care (01) | LOC: HBO 00:10 | DX: E11.621 Type 2 diabetes mellitus with foot ulcer (principal); L97.515 Non-pressure chronic ulcer of other part of right foot with muscle involvement without evidence of necrosis; L97.522 Non-pressure chronic ulcer of other part of left foot with fat layer exposed; Z79.4 Long term (current) use of insulin | CPT/HCPCS: 82947; G0277 ==

== ENCOUNTER 2019-08-17 00:10 | Day surgery (SDC) | payer MEDICARE, OTHER | END 2019-08-17 22:57 | disposition home or self-care (01) | LOC: HBO 00:10 | DX: E11.621 Type 2 diabetes mellitus with foot ulcer (principal); L97.515 Non-pressure chronic ulcer of other part of right foot with muscle involvement without evidence of necrosis; L97.522 Non-pressure chronic ulcer of other part of left foot with fat layer exposed | CPT/HCPCS: 82947; G0277 ==

== ENCOUNTER 2019-08-18 00:27 | Day surgery (SDC) | payer MEDICARE, OTHER | END 2019-08-18 22:54 | disposition home or self-care (01) | LOC: WOUND 00:27 | DX: E11.621 Type 2 diabetes mellitus with foot ulcer (principal); L97.415 Non-pressure chronic ulcer of right heel and midfoot with muscle involvement without evidence of necrosis; L97.522 Non-pressure chronic ulcer of other part of left foot with fat layer exposed; E11.42 Type 2 diabetes mellitus with diabetic polyneuropathy; J44.9 Chronic obstructive pulmonary disease, unspecified; I10 Essential (primary) hypertension; Z87.891 Personal history of nicotine dependence; Z79.899 Other long term (current) drug therapy; Z79.4 Long term (current) use of insulin ==

== ENCOUNTER 2019-08-18 08:47 | Day surgery (SDC) | payer MEDICARE, OTHER | END 2019-08-18 22:54 | disposition home or self-care (01) | LOC: HBO | DX: E11.621 Type 2 diabetes mellitus with foot ulcer (principal); L97.515 Non-pressure chronic ulcer of other part of right foot with muscle involvement without evidence of necrosis; L97.522 Non-pressure chronic ulcer of other part of left foot with fat layer exposed; Z79.4 Long term (current) use of insulin | CPT/HCPCS: 82947; G0277 ==

== ENCOUNTER 2019-08-23 00:14 | Day surgery (SDC) | payer MEDICARE, OTHER | END 2019-08-23 23:36 | disposition home or self-care (01) | LOC: HBO 00:14 | DX: E11.621 Type 2 diabetes mellitus with foot ulcer (principal); L97.515 Non-pressure chronic ulcer of other part of right foot with muscle involvement without evidence of necrosis; L97.522 Non-pressure chronic ulcer of other part of left foot with fat layer exposed; Z79.4 Long term (current) use of insulin | CPT/HCPCS: 82947; G0277 ==

== ENCOUNTER 2019-08-24 00:22 | Day surgery (SDC) | payer MEDICARE, OTHER | END 2019-08-24 23:04 | disposition home or self-care (01) | LOC: HBO 00:22 | DX: E11.621 Type 2 diabetes mellitus with foot ulcer (principal); L97.515 Non-pressure chronic ulcer of other part of right foot with muscle involvement without evidence of necrosis; L97.522 Non-pressure chronic ulcer of other part of left foot with fat layer exposed; Z79.4 Long term (current) use of insulin | CPT/HCPCS: 82947; G0277 ==

== ENCOUNTER 2019-08-25 00:17 | Day surgery (SDC) | payer MEDICARE, OTHER | END 2019-08-25 23:22 | disposition home or self-care (01) | LOC: HBO 00:17 | DX: E11.621 Type 2 diabetes mellitus with foot ulcer (principal); L97.515 Non-pressure chronic ulcer of other part of right foot with muscle involvement without evidence of necrosis; L97.522 Non-pressure chronic ulcer of other part of left foot with fat layer exposed; Z79.4 Long term (current) use of insulin | CPT/HCPCS: 82947; G0277 ==

== ENCOUNTER 2019-08-26 00:38 | Day surgery (SDC) | payer MEDICARE, OTHER | END 2019-08-26 23:27 | disposition home or self-care (01) | LOC: HBO 00:38 | DX: E11.621 Type 2 diabetes mellitus with foot ulcer (principal); L97.515 Non-pressure chronic ulcer of other part of right foot with muscle involvement without evidence of necrosis; L97.522 Non-pressure chronic ulcer of other part of left foot with fat layer exposed | CPT/HCPCS: 82947; G0277 ==

== ENCOUNTER 2019-08-26 00:42 | Day surgery (SDC) | payer MEDICARE, OTHER | END 2019-08-26 23:27 | disposition home or self-care (01) | LOC: WOUND 00:42 | DX: E11.621 Type 2 diabetes mellitus with foot ulcer (principal); L97.515 Non-pressure chronic ulcer of other part of right foot with muscle involvement without evidence of necrosis; L97.522 Non-pressure chronic ulcer of other part of left foot with fat layer exposed ==

== ENCOUNTER 2019-08-29 00:36 | Day surgery (SDC) | payer MEDICARE, OTHER | END 2019-08-29 23:19 | disposition home or self-care (01) | LOC: HBO 00:36 | DX: E11.621 Type 2 diabetes mellitus with foot ulcer (principal); L97.515 Non-pressure chronic ulcer of other part of right foot with muscle involvement without evidence of necrosis; L97.522 Non-pressure chronic ulcer of other part of left foot with fat layer exposed | CPT/HCPCS: 82947; G0277 ==

== ENCOUNTER 2019-08-30 00:08 | Day surgery (SDC) | payer MEDICARE, OTHER | END 2019-08-30 23:10 | disposition home or self-care (01) | LOC: HBO 00:08 | DX: E11.621 Type 2 diabetes mellitus with foot ulcer (principal); L97.515 Non-pressure chronic ulcer of other part of right foot with muscle involvement without evidence of necrosis; L97.522 Non-pressure chronic ulcer of other part of left foot with fat layer exposed | CPT/HCPCS: 82947; G0277 ==

== ENCOUNTER 2019-09-05 00:25 | Day surgery (SDC) | payer MEDICARE, OTHER | END 2019-09-05 22:44 | disposition home or self-care (01) | LOC: HBO 00:25 | DX: E11.621 Type 2 diabetes mellitus with foot ulcer (principal); L97.515 Non-pressure chronic ulcer of other part of right foot with muscle involvement without evidence of necrosis; L97.522 Non-pressure chronic ulcer of other part of left foot with fat layer exposed; Z79.4 Long term (current) use of insulin | CPT/HCPCS: 82947; G0277 ==

== ENCOUNTER 2019-09-06 00:25 | Day surgery (SDC) | payer MEDICARE, OTHER | END 2019-09-06 22:39 | disposition home or self-care (01) | LOC: HBO 00:25 | DX: E11.621 Type 2 diabetes mellitus with foot ulcer (principal); L97.515 Non-pressure chronic ulcer of other part of right foot with muscle involvement without evidence of necrosis; L97.522 Non-pressure chronic ulcer of other part of left foot with fat layer exposed; Z79.4 Long term (current) use of insulin | CPT/HCPCS: 82947; G0277 ==

== ENCOUNTER 2019-09-07 00:11 | Day surgery (SDC) | payer MEDICARE, OTHER | END 2019-09-07 23:04 | disposition home or self-care (01) | LOC: HBO 00:11 | DX: E11.621 Type 2 diabetes mellitus with foot ulcer (principal); L97.515 Non-pressure chronic ulcer of other part of right foot with muscle involvement without evidence of necrosis; L97.522 Non-pressure chronic ulcer of other part of left foot with fat layer exposed | CPT/HCPCS: 82947; G0277 ==

== ENCOUNTER 2019-12-10 15:03 | Inpatient (IN) | payer MEDICARE, OTHER ==
[~2019-12-10] VITALS: Ht 172.7 cm; Wt 110.9 kg
[~2019-12-10 15:03] MED LIST changes: -LEVSOD125 PO; +LEVSOD137 PO
[2019-12-10 15:53] LABS: BASOPHILS ABSOLUTE AUTO 0.02 K/mm3 (0.00-0.23); BASOPHILS PERCENT AUTO 0 % (0-2); EOSINOPHILS ABSOLUTE AUTO 0.13 K/mm3 (0.00-0.68); EOSINOPHILS PERCENT AUTO 1 % (0-6); Hemoglobin 10.7 g/dL (11.5-16.0); IMMATURE GRAN ABSOLUTE AUTO 0.03 K/mm3 (0.00-0.10); IMMATURE GRAN PERCENT AUTO 0 % (0-1); LYMPHOCYTES ABSOLUTE AUTO 1.48 K/mm3 (0.84-5.20); LYMPHOCYTES PERCENT AUTO 12 % (21-46); MONOCYTES ABSOLUTE AUTO 0.78 K/mm3 (0.16-1.47); MONOCYTES PERCENT AUTO 6 % (4-13); Mean Corpuscular HGB 30.8 pg (26.0-34.0); Mean Corpuscular HGB Conc 32.4 g/dL (31.5-36.5); Mean Corpuscular Volume 95 fL (80-100); Mean Platelet Volume 9.8 fL (9.1-12.4); NEUTROPHILS PERCENT AUTO 80 % (41-73); Platelet Count 300 K/mm3 (150-400); RDW Coefficient Variation 14.5 % (11.7-14.2); RDW Standard Deviation 50.4 fL (35.1-46.3); Red Blood Cell Count 3.47 M/mm3 (3.80-5.20); White Blood Cell Count 12.24 K/mm3 (4.00-11.30)
[2019-12-10 16:16] LABS: Albumin, Blood 2.6 g/dL (3.4-5.0); Albumin/Globulin Ratio 0.6 (0.8-1.8); Bilirubin, Total 0.4 mg/dL (0.1-1.0); Bun/Creatinine Ratio 30.8 (12.0-20.0); Calcium, Blood 8.6 mg/dL (8.5-10.1); Creatinine, Blood 1.3 mg/dL (0.40-1.00); Globulin, Blood 4.7 g/dL (2.2-4.0); Potassium, Blood 5.4 mmol/L (3.5-5.5); Total Protein, Blood 7.3 g/dL (6.4-8.2)
[2019-12-10] MEDS ORDERED: OXYC5 PO (19:08)
[2019-12-10] MEDS ORDERED: PLAVIX75 MG PO (19:09)
[2019-12-10] MEDS ORDERED: TORSE20 PO (19:09)
--- NOTE | 2019-12-11 04:16 | NUR ---
ADMIT NOTE/SHIFT SUMMARY ADMITTED FROM ER THIS SHIFT FOR POSSIBLE ABSCESS OF LEFT INNER THIGH. FULL CODE. GENERAL SURGICAL ANSWERING SERVICE - CONSULT HAS BEEN CALLED. PT WAS BROUGHT VIA GURNEY FROM ED TO MED FLOOR. REPORT TAKEN FROM SUPERVISOR LITHARGEERIN ESTRADA. PT ORIENTED TO UNIT. CALL BUTTON WITHIN REACH. IV FLUIDS STARTED ORDERED. PT VERY SLEEPY THIS SHIFT. POSSIBLE ABSCESS WAS PUNCTURED BY ER DR, NOW DRAINING MODERATE AMOUNTS OF SANGUINOUS FLUID. REDNESS ON THIGH FROM CELLULITIS IS OUTLINED.
[2019-12-11 05:00] LABS: BASOPHILS ABSOLUTE AUTO 0.03 K/mm3 (0.00-0.23); BASOPHILS PERCENT AUTO 0 % (0-2); EOSINOPHILS ABSOLUTE AUTO 0.18 K/mm3 (0.00-0.68); EOSINOPHILS PERCENT AUTO 2 % (0-6); Hematocrit 35.7 % (33.0-51.0); IMMATURE GRAN ABSOLUTE AUTO 0.04 K/mm3 (0.00-0.10); IMMATURE GRAN PERCENT AUTO 0 % (0-1); LYMPHOCYTES ABSOLUTE AUTO 1.52 K/mm3 (0.84-5.20); LYMPHOCYTES PERCENT AUTO 12 % (21-46); MONOCYTES ABSOLUTE AUTO 0.96 K/mm3 (0.16-1.47); MONOCYTES PERCENT AUTO 8 % (4-13); Mean Corpuscular HGB 30.9 pg (26.0-34.0); Mean Corpuscular HGB Conc 30.8 g/dL (31.5-36.5); Mean Platelet Volume 9.8 fL (9.1-12.4); NEUTROPHILS PERCENT AUTO 78 % (41-73); Platelet Count 260 K/mm3 (150-400); RDW Coefficient Variation 14.8 % (11.7-14.2); RDW Standard Deviation 54.8 fL (35.1-46.3); Red Blood Cell Count 3.56 M/mm3 (3.80-5.20); White Blood Cell Count 12.33 K/mm3 (4.00-11.30)
[2019-12-11 05:07] LABS: Mean Corpuscular Volume 100 fL (80-100)
[2019-12-11 05:20] LABS: Bun/Creatinine Ratio 33.6 (12.0-20.0); Calcium, Blood 8.5 mg/dL (8.5-10.1); Creatinine, Blood 1.16 mg/dL (0.40-1.00)
--- NOTE | 2019-12-11 07:32 | NUR ---
ASSUMED CARE: PT RESTING IN BED BUT AWAKE, TALKING TO STAFF. NO ACUTE NEEDS OR CONCERNS AT THIS TIME.
--- NOTE | 2019-12-11 09:36 | NUR ---
PT TAKEN TO CT SCAN AT THIS TIME.
--- NOTE | 2019-12-11 09:55 | NUR ---
PT RETURNED FROM CT
--- NOTE | 2019-12-11 18:17 | NUR ---
SHIFT SUMMARY: PT HAD CT SCAN DONE TODAY THAT REVEALED RESULT THAT DR PAZ DISCUSSED WITH PT. PLAN IS FOR DR ANNA TO DO I AND D TO LEFT THIGH TOMORROW AM. PT TO BE NPO AFTER MN. SIGN ON DOOR. MEDICATING PT FOR PAIN FREQUENTLY. FAMILY AT BEDSIDE
--- NOTE | 2019-12-12 01:54 | NUR ---
PT APPEARS TO BE RESTING IN BED WITH CALL LIGHT IN REACH. REPORT GIVEN TO ERIN PEDRO. WILLIS ASSUMED CARE OF MRS. CHAVARRIA AT THIS TIME.
[2019-12-12 06:08] LABS: BASOPHILS ABSOLUTE AUTO 0.03 K/mm3 (0.00-0.23); BASOPHILS PERCENT AUTO 0 % (0-2); EOSINOPHILS ABSOLUTE AUTO 0.03 K/mm3 (0.00-0.68); EOSINOPHILS PERCENT AUTO 0 % (0-6); Hematocrit 35.1 % (33.0-51.0); Hemoglobin 10.6 g/dL (11.5-16.0); IMMATURE GRAN ABSOLUTE AUTO 0.05 K/mm3 (0.00-0.10); IMMATURE GRAN PERCENT AUTO 0 % (0-1); LYMPHOCYTES ABSOLUTE AUTO 1.41 K/mm3 (0.84-5.20); LYMPHOCYTES PERCENT AUTO 11 % (21-46); MONOCYTES ABSOLUTE AUTO 0.69 K/mm3 (0.16-1.47); MONOCYTES PERCENT AUTO 5 % (4-13); Mean Corpuscular HGB 30.5 pg (26.0-34.0); Mean Corpuscular HGB Conc 30.2 g/dL (31.5-36.5); Mean Corpuscular Volume 101 fL (80-100); Mean Platelet Volume 9.8 fL (9.1-12.4); NEUTROPHILS ABSOLUTE AUTO 10.86 K/mm3 (1.96-9.15); NEUTROPHILS PERCENT AUTO 83 % (41-73); Platelet Count 304 K/mm3 (150-400); RDW Coefficient Variation 15.2 % (11.7-14.2); RDW Standard Deviation 57.2 fL (35.1-46.3); Red Blood Cell Count 3.47 M/mm3 (3.80-5.20); White Blood Cell Count 13.07 K/mm3 (4.00-11.30)
[2019-12-12 06:32] LABS: Bun/Creatinine Ratio 22.8 (12.0-20.0); Calcium, Blood 9.1 mg/dL (8.5-10.1); Creatinine, Blood 2.24 mg/dL (0.40-1.00)
[2019-12-12 06:34] LABS: Potassium, Blood 6.4 mmol/L (3.5-5.5)
--- NOTE | 2019-12-12 07:44 | NUR ---
AUTOMOBILE MECHANIC HELPER SUMMARY Assumed care 0240. Patient slept and appeared comfortable through night. NPO for debridement with Dr. Mcghee this morning. Potassium 6.[address] Grant Medina this AM. Currently no new orders. with Dr. Mcghee this morning.
--- NOTE | 2019-12-12 08:20 | NUR ---
PER DR. Grant DIAZ, OK TO GIVE ALL PO MEDS THIS AM INCLUDING PLAVIX.
--- NOTE | 2019-12-12 11:28 | NUR ---
DAYSURGERY PT LABS OUT OF RANGE DR HADDAD AND DR MCGUIRE NOTIFIED BOTH PROVIDERS AGREE PROCEDURE IS UNABLE TO CONT. DUE TO POTASSIUM OF 6.5. RN ON MEDICAL FLOOR NOTIFING PT PRIMARY MD
--- NOTE | 2019-12-12 11:35 | NUR ---
CRITICAL LAB POTASSIUM OF 6.5 REPORTED BY LAB TO THIS RN, DR. Tee DIAZ NOTIFIED. ORDER RECEIVED FOR 5U BOLUS REGULAR INSULIN WITH 25MG OF D50. RECHECK POTASSIUM IN 1 HOUR AFTER ADMINISTRATION. ALSO RECEIVED VERBAL ORDER FROM DR. Tee DIAZ FOR CONTINUOUS PULSE OX AND NIGHT TIME OXIMETRY.
--- NOTE | 2019-12-12 15:26 | NUR ---
PER DR. MCGUIRE, D/T HYPERKALEMIA, I/D HAS BEEN POSTPONED FOR TOMORROW 12/12. PATIENT IS TO BE NPO STARTING AT MIDNIGHT. PATIENT CAN HAVE ADA DIET UNTIL NPO ORDER TAKES EFFECT. ORDER RECEIVED VIA TELEPHONE.
--- NOTE | 2019-12-12 16:23 | NUR ---
PER DR. Grant DIAZ, REPEAT SERUM POTASSIUM 1 HOUR AFTER CALCIUM GLUCONATE HAS FINISHED INFUSING. ORDER UPDATED.
--- NOTE | 2019-12-12 17:59 | NUR ---
Shift Summary A/Ox4, pleasant and cooperative this shift. Has been quite drowsy, but easily awakens to verbal stimuli. Up x 2 assist to bedside commode c gait. I/D postponed for tomorrow due to hyperkalemia (see previous notes). No c/o pain in left thigh. Wound care completed to R and L lateral feet. Redness on left thigh remains unchanged. ADA diet for tonight, NPO starting midnight for planned I/D. Will continue to monitor.
[2019-12-12 19:08] LABS: Potassium, Blood 5.9 mmol/L (3.5-5.5); Vancomycin, Trough 23.3 ug/mL (5.0-10.0)
--- NOTE | 2019-12-12 20:30 | NUR ---
ASSUMED CARE. BRIAN IS VERY SLEEPY, FALLING ASLEEP SEVERAL TIMES DURING THE ASSESSMENT. SHE WAKES UP WHEN HER NAME IS CALLED AND IS ABLE TO STATE ORIENTATION. CELLULITIS TO THE THIGH IS IMPROVING, REDNESS DECREASED FROM OUTLINE. DENIES ANY PAIN AT THIS TIME. SEVERAL SCABS NOTED ALL OVER BOTH LEGS. N/T BLE. ATTENDS DRY. ADMIISTERED PM MEDS. CALL LIGHT IS IN REACH, REPOSITIONED UP IN BED.
--- NOTE | 2019-12-13 05:45 | NUR ---
SHIFT SUMMARY: PATIENT HAS BEEN VERY SLEEPY THIS SHIFT, SHE DOES AWAKE TO HER NAME BEING CALLED BUT HAS HARD TIME KEEPING EYES OPEN. SHE DID HAVE PERIODS OF CONFUSION DURING THE NIGHT CALLING OUT FOR HER , AND TALKING IN SLEEP. SHE DID RE-ORIENT EASILY. VS WNL, AFEBRILE. NPO SINCE MIDNIGHT FOR I&D TODAY. REDNESS, SWELLING, WARMTH, FIRMNESS ALL STILL PRESENT IN THE UPPER LEFT MEDIAL THIGH. NO PAIN MEDS WERE GIVEN. SLEEP STUDY SHOWED DROP IN SATS INTO THE 70'S WHEN SHE SLEPT. RT PLACED HER ON 2 LITERS OF O2 TO KEEP SATS IN THE 90'S. NO OTHER CHANGES OCCURRED THIS SHIFT. CALL LIGHT REMAINED WITH IN REACH.
[2019-12-13 06:18] LABS: Albumin, Blood 2.3 g/dL (3.4-5.0); Anion Gap 5 mmol/L (6-16); Blood Urea Nitrogen 63 mg/dL (8-24); Bun/Creatinine Ratio 26.2 (12.0-20.0); CO2, Blood 22 mmol/L (21-32); Calcium, Blood 8.9 mg/dL (8.5-10.1); Chloride, Blood 104 mmol/L (98-108); Glomerular Filtration Rate 22 (60-); Glucose, Blood 109 mg/dL (70-99); Potassium, Blood 5.6 mmol/L (3.5-5.5); Sodium, Blood 131 mmol/L (136-145); Vancomycin, Random 22.4 ug/mL
[2019-12-13 09:16] LABS: Albumin, Blood 2.3 g/dL (3.4-5.0); Albumin/Globulin Ratio 0.5 (0.8-1.8); Bilirubin, Total 0.2 mg/dL (0.1-1.0); Bun/Creatinine Ratio 25.6 (12.0-20.0); Creatinine, Blood 2.42 mg/dL (0.40-1.00); Globulin, Blood 4.7 g/dL (2.2-4.0); Potassium, Blood 5.6 mmol/L (3.5-5.5)
[2019-12-13 10:57] LABS: Base Excess Venous -5.9 mmol/L; Bicarbonate Venous 19.4 mmol/L (24.0-30.0); PCO2 Venous 54.9 mmHg (38-42); PO2 Venous 92.9 mmHg (38-42); pH Blood Venous 7.21 (7.34-7.37)
[2019-12-13 12:22] LABS: PCO2 Arterial 48.9 mmHg (35-45)
[2019-12-13 12:24] LABS: pH Blood Arterial 7.25 (7.35-7.45)
[2019-12-13 14:03] LABS: BASOPHILS ABSOLUTE AUTO 0.01 K/mm3 (0.00-0.23); BASOPHILS PERCENT AUTO 0 % (0-2); EOSINOPHILS ABSOLUTE AUTO 0.19 K/mm3 (0.00-0.68); EOSINOPHILS PERCENT AUTO 2 % (0-6); Hematocrit 32.5 % (33.0-51.0); Hemoglobin 9.9 g/dL (11.5-16.0); IMMATURE GRAN ABSOLUTE AUTO 0.05 K/mm3 (0.00-0.10); IMMATURE GRAN PERCENT AUTO 1 % (0-1); LYMPHOCYTES ABSOLUTE AUTO 1.12 K/mm3 (0.84-5.20); LYMPHOCYTES PERCENT AUTO 11 % (21-46); MONOCYTES ABSOLUTE AUTO 0.66 K/mm3 (0.16-1.47); MONOCYTES PERCENT AUTO 6 % (4-13); Mean Corpuscular HGB 30.4 pg (26.0-34.0); Mean Corpuscular HGB Conc 30.5 g/dL (31.5-36.5); Mean Corpuscular Volume 100 fL (80-100); Mean Platelet Volume 9.5 fL (9.1-12.4); NEUTROPHILS ABSOLUTE AUTO 8.33 K/mm3 (1.96-9.15); NEUTROPHILS PERCENT AUTO 80 % (41-73); Platelet Count 297 K/mm3 (150-400); RDW Coefficient Variation 14.9 % (11.7-14.2); Red Blood Cell Count 3.26 M/mm3 (3.80-5.20); White Blood Cell Count 10.36 K/mm3 (4.00-11.30)
[2019-12-13 14:52] LABS: Alanine Aminotransfer (ALT/SGP 10 U/L (12-78); Albumin, Blood 2.3 g/dL (3.4-5.0); Albumin/Globulin Ratio 0.5 (0.8-1.8); Alk Phos 92 U/L (50-136); Anion Gap 6 mmol/L (6-16); Aspartate Aminotrans (AST/SGOT 11 U/L (12-37); Bilirubin, Total 0.2 mg/dL (0.1-1.0); Blood Urea Nitrogen 61 mg/dL (8-24); Bun/Creatinine Ratio 29.9 (12.0-20.0); CO2, Blood 24 mmol/L (21-32); CPK Creatine Kinase 38 U/L (26-193); Chloride, Blood 106 mmol/L (98-108); Creatinine, Blood 2.04 mg/dL (0.40-1.00); Globulin, Blood 4.8 g/dL (2.2-4.0); Glomerular Filtration Rate 27 (60-); Glucose, Blood 100 mg/dL (70-99); Phosphorus, Blood 4.3 mg/dL (2.5-4.9); Potassium, Blood 5.4 mmol/L (3.5-5.5); Sodium, Blood 136 mmol/L (136-145); Total Protein, Blood 7.1 g/dL (6.4-8.2)
--- NOTE | 2019-12-13 15:40 | NUR ---
PATIENT HAS BEEN VERY LETHARGIC ALL DAY. SHE WILL AWAKEN TO VERBAL COMMAND AND RESPOND SLOWLY, HOWEVER SHE IS QUICK TO FALL BACK TO SLEEP. MANY LABS AND IMAGING HAVE BEEN ORDERED TODAY AND PERFORMED ON PATIENT TO TRY AND DETERMINE THE ROOT OF HER PROBLEM. DR MCGUIRE IS PUSHING TO GET PATIENT INTO THE O.R. TO BE ABLE TO PERFORM THE NEEDED I&D ON THE PATIENTS L INNER THIGH; THE ANETHESIOLOGIST IS NOT TOO SURE ABOUT IT SO THE PATIENT WAS TAKEN DOWN TO THE ER TO BE ASSESSED BY THE MD'S THEMSELVES TO MAKE A DECISION. VITALS HAVE BEEN STABLE WITH BP SLIGHTLY ELEVATED. POWER GLIDE PLACED TO GILDA D/T PERIPHERALS GOING BAD ON PATIENT AND PATIENT BEING A VERY DIFFICULT STICK. PATIENT NOTED TO RETAIN 400CC URINE POST VOID; DR Tee DIAZ NOTIFIED WITHOUT NEW ORDERS GIVEN. PATIENT CONTINUES TO BE DOWN IN THE E.R. AT THIS TIME. WILL CONTINUE TO PROVIDE CARE NEEDED UPON RETURN.
--- NOTE | 2019-12-13 16:01 | NUR ---
PT TO SDS VIA BED, SLIGHTLY CONFUSED, FALLS ASLEEP EASILY, BUT WAS A/O X 3 WHEN ASKED. PERIODS OF APNEA NOTED WHEN ASLEEP. PLACED ON 2L O2 VIA NC. Patient confirms NPO status and agrees with scheduled surgery.
--- NOTE | 2019-12-13 18:20 | NUR ---
Pt was tearful when I entered room. She also appeared sleepy and slow to respond. She moved swiftly betweeen tears and smiles with nothing seemingly bringing about either. I sat with her for awhile providing presence and companionship. Found something for her to watch on TV and visit ended. I will remain available.
--- NOTE | 2019-12-13 19:24 | NUR ---
PATIENT RETURNED FROM THE PACU AT 1830. HOOKED BACK UP TO IV FLUIDS, CONT BIOX AND ON O2. VITALS CHECKED AND STABLE. PATIENT IS IN THE SAME COGNATIVE CONDITION SHE WAS PRIOR TO SURGERY.
--- NOTE | 2019-12-13 20:36 | NUR ---
ASSUMED CARE. BRIAN IS AWAKE, CONFUSED, YELLS OUT FOR HER AND SISTER. REORIENTED HER TO THE HOSPITAL. SHE THEN TOLD ME HER SISTER WAS , SHE MISSED HER. STARTED TO CRY SOME. REFORCED THAT SHE WAS SAFE AND BEING CARED FOR. SHE ASKED FOR SOMETHING TO DRINK, TOLD HER SHE JUST GOT OUT OF SURGERY ON HER LEG AND THAT I NEEDS TO SPEAK TO THE DOCTOR. SHE SAID OK. SATS IN THE 90'S ON 2 LITERS OF O2. DRESSING TO LEFT INNER THIGH INTACT, SOME DRAINAGE IS NOTED BUT IS NOT SEEPING THROUGH. REDNESS AND SWELLING HAS DECREASED ON LEG. BRIAN IS STILL VERY SLEEPY AND SEDATED FALLING ASLEEP DURING ASSESSMENT. WILL CONTINUE TO MONITOR, BED ALARM IS ON.
--- NOTE | 2019-12-13 20:45 | NUR ---
CALLED AND SPOKE TO RAJENDRA SEXTON REGARDING DIET. PATIENT REQUESTING TO HAVE SOMETHING TO EAT AND DRINK. SHE SAID THE PATIENT CAN HAVE A SNACK TILL MIDNIGHT BUT NEEDS TO GO BACK ON NPO AT THAT TIME.
[2019-12-13 21:46] LABS: Appearance, Urine Clear (Clear); Bilirubin, Urine Neg (Neg); Blood, Urine Neg (Neg); Color, Urine Yellow (P-Yellow); Glucose Qualitative, Urine Neg (Neg); Ketones, Urine Neg (Neg); Leukocyte Esterase, Urine 1+ (Neg); Nitrite, Urine Neg (Neg); Protein, Urine Neg (Neg); Specific Gravity, Urine 1.015 (1.003-1.022); Urobilinogen, Urine NORM (Normal)
[2019-12-13 21:58] LABS: Bacteria Not Seen /hpf; Red Blood Cells, Urine Not Seen /hpf (0-2); White Blood Cells, Urine 0-2 /hpf (0-5); Yeast/Fungi Urine Mod /hpf
[2019-12-13 21:59] LABS: Amorphous Light (0-Heavy); Squamous Epithelial Cells Few /hpf (Few)
--- NOTE | 2019-12-13 23:22 | NUR ---
BRIAN CONTINUES TO CALL OUT IN HER SLEEP FOR HER FAMILY AND . THEN SHE WAKES UP SCREAMING DISORIENTED REFUSING TO USE THE BIPAP. SAYING SHE HAS TO GO. TRY AND REORIENT HER AND SHE STARTS PUSHING HEAD NURSE AND I AWAY TRYING TO GET UP. SHE HAS DONE THIS A COUPLE TIMES NOW. WE REORINT HER FINNALLY AND SHE LAYS BACK DOWN GOING TO SLEEP.
--- NOTE | 2019-12-14 02:42 | NUR ---
BRIAN IS BACK TO CRAWLING OUT OF BED, WRIPPING OFF HER OXYGEN, GOWN AND PULLING AT HER POWERGLIDE AND LINES. CONFUSED CALLING OUT FOR HER FAMILY, IS NOT REORIENTING HER. TOOK 30 MINUTES TO CALM DOWN AND GET HER BACK TO BED. CALLED DR. HASKINS AND GOT AN ORDER FOR HALDOL.
--- NOTE | 2019-12-14 04:32 | NUR ---
SHIFT SUMMARY: BRIAN HAS BEEN CONFUSED, ANXIOUS, FEARFUL. SHE WOULD BE SLEEPING AND WAKE UP CALLING OUT HER HUSBANDS NAME OR DAUGHTERS NAME, TRYING TO CRAWL OUT OF BED, "CALLING OUT HELP ME", "I GOT TO GO". RIPPING OFF HER GOWN, OXYGEN, PULLING AT HER LINES. TAKES HER ABOUT 10 MINUTES FOR HER TO CALM DOWN WHERE WE CAN TALK TO HER, REORIENT HER. A COUPLE TIMES SHE GOT ANGRY AND WOULD TRY TO PUSH HER WAY PAST US OR HIT OUT HANDS AWAY. ONCE CALM, SHE WOULD AGREE TO GO BACK TO SLEEP TILL MORNING JUST TO WAKE UP IN AN HOUR AND DO IT AGAIN. FINALLY CALLED DR. HASKINS, RECEIVED ORDER FOR HALDOL. GAVE HER 3MG WHICH ALLOWED HER TO FALL ASLEEP, WAS ABLE TO PLACE HER ON BIPAP WELL. WOUND DRESSING TO LEFT INNER THIGH REMAINED INTACT DRAINAGE CONTAINED WITH IN DRESSING. REDNESS TO THIGH DECREASEING. BLOOD SUGARS HAVE BEEN LOW 100'S. HELD LANTUS. SPOKE TO RAJENDRA SEXTON REGARDING GIVING HER SOMETHING TO EAT. SHE REPORTED SHE COULD HAVE A SNACK BUT NPO AFTER MIDNIGHT. SHE HAD A SANDWICH AND SOME DIET PEPSI. VS REMAINED STABLE. NO OTHER CHANGES TO NOTE. BED ALARM ON, CALL LIGHT IN REACH.
[2019-12-14 05:29] LABS: PCO2 Arterial 52.4 mmHg (35-45); PO2 Arterial 82.4 mmHg (80-100)
[2019-12-14 05:30] LABS: pH Blood Arterial 7.26 (7.35-7.45)
--- NOTE | 2019-12-14 05:31 | NUR ---
RT CALLED TO REPORT CRITICAL ABG RESULTS OF PH 7.26. CLOSE TO PREVIOUS READING. WILL TRY AND KEEP HER ON BIPAP LONG SHE WILL TOLERATE IT.
[2019-12-14 05:48] LABS: Vancomycin, Random 13.5 ug/mL
[2019-12-14 07:21] LABS: BASOPHILS ABSOLUTE AUTO 0.03 K/mm3 (0.00-0.23); BASOPHILS PERCENT AUTO 0 % (0-2); EOSINOPHILS PERCENT AUTO 2 % (0-6); Hemoglobin 9.8 g/dL (11.5-16.0); IMMATURE GRAN ABSOLUTE AUTO 0.04 K/mm3 (0.00-0.10); IMMATURE GRAN PERCENT AUTO 1 % (0-1); LYMPHOCYTES ABSOLUTE AUTO 1.11 K/mm3 (0.84-5.20); LYMPHOCYTES PERCENT AUTO 13 % (21-46); MONOCYTES ABSOLUTE AUTO 0.56 K/mm3 (0.16-1.47); MONOCYTES PERCENT AUTO 7 % (4-13); Mean Corpuscular HGB 30.6 pg (26.0-34.0); Mean Corpuscular HGB Conc 30.6 g/dL (31.5-36.5); Mean Corpuscular Volume 100 fL (80-100); Mean Platelet Volume 9.7 fL (9.1-12.4); NEUTROPHILS ABSOLUTE AUTO 6.59 K/mm3 (1.96-9.15); NEUTROPHILS PERCENT AUTO 77 % (41-73); Platelet Count 307 K/mm3 (150-400); RDW Coefficient Variation 14.7 % (11.7-14.2); RDW Standard Deviation 54.3 fL (35.1-46.3); White Blood Cell Count 8.53 K/mm3 (4.00-11.30)
--- NOTE | 2019-12-14 07:45 | NUR ---
LEFT MESSAGE ON VOICE MAIL PH 7.26, SATS DOWN TO 70-80'S AND WILL NOT LEAVE BIPAP OR OXYGEN ON. AWAITING CALL BACK. CONFUSED.
--- NOTE | 2019-12-14 08:50 | NUR ---
REPORT TO DAY NUCLEAR SECURITY OFFICER. TRANSFERRED TO [facility]. S.O. PAWAN, NOTIFIED OF MOVE.
[2019-12-14 09:13] LABS: Bun/Creatinine Ratio 40.6 (12.0-20.0); Calcium, Blood 8.9 mg/dL (8.5-10.1); Creatinine, Blood 1.38 mg/dL (0.40-1.00); Potassium, Blood 5.6 mmol/L (3.5-5.5)
--- NOTE | 2019-12-14 11:03 | NUR ---
ASSUME CARE: PT ARRIVED THIS MORNING VIA HOSPITAL BED FROM MEDICAL FLOOR, BEDSIDE REPORT RECEIVED FROM SANJIV KHAN. PT IS MINIMALLY RESPONSIVE UPON ARRIVAL ON 4L OF O2, WAS THEN SWITCHED TO VSERIES BIPAP SETTING ON RA PER RT SETTINGS. VITALS HRR SINUS 70-80'S, BP SYSTOLIC 150'S, SATS ABOVE 95% ON BIPAP. AFTER AN HOUR PT STARTED WAKING UP YELLING FOR HELP WANTED TO USE THE BATHROOM WHEN PT WAS BEING ASSISTED TO USE THE COMMODE PT STATED "WHERE ARE WE GOING?" SUDDENLY REFUSED AND STATED SHE DOESNT NEED TO USE THE TOILET. FOR HALF AN HOUR PT WAS ON AND OFF YELLING FOR HELP, LOOKING FOR HER MOM, WANTED TO GO HOME, ATTEMPTED TO GET OUT OF BED MULTIPLE TIMES WAS BEING VERBALLY AND PHYSICALLY AGGRESSIVE, ATTEMPTED TO HIT THIS RN ON THE FACE AND THREATENING TO SHUT UP. PT WAS NOT REDIRECTABLE. CHARGE NURSE MADE AWARE PT WAS GIVEN 1MG ATIVAN AND JUVENTINO VEST APPLIED WITH ORDER FROM DR DIAZ. PT NOW BACK IN BED RESTING WTIH BIPAP ON, WILL CONTINUE TO MONITOR PT
[2019-12-14 11:24] LABS: Free Thyroxine 1.03 ng/dL (0.70-1.60); Phosphorus, Blood 3.3 mg/dL (2.5-4.9); Thyroid Stimulating Hormone 2.95 uIU/mL (0.360-4.800)
[2019-12-14 13:59] LABS: Source, Urine Catheter
[2019-12-14 14:02] LABS: Bilirubin, Urine Neg (Neg); Blood, Urine Neg (Neg); Glucose Qualitative, Urine Neg (Neg); Ketones, Urine Neg (Neg); Leukocyte Esterase, Urine 2+ (Neg); Nitrite, Urine Neg (Neg); Protein, Urine 2+ (Neg); Urobilinogen, Urine NORM (Normal)
[2019-12-14 14:09] LABS: Appearance, Urine Clear (Clear); Color, Urine Yellow (P-Yellow)
[2019-12-14 14:13] LABS: Bacteria Mod /hpf; Red Blood Cells, Urine 0-2 /hpf (0-2); Squamous Epithelial Cells Few /hpf (Few); Yeast/Fungi Urine Many /hpf
--- NOTE | 2019-12-14 15:57 | NUR ---
HALDOL 5MG IV WAS NOT EFFECTIVE, PT REMAINED AGITATED, TRYING TO PULL LINES, WONT KEEP NASAL CANNULA OR BIPAP ON, WILL DESAT TO 85% BUT THEN RECOVERS BACK TO LOW 90'S WITHOUT ANY O2 SUPPORT. ATIVAN 1MG GIVEN AFTER 30 MINS PT STILL AGITATED IN BED ANOTHER 1MG GIVEN PT SEEMS TO FIGHT THE MEDICATION, PT NOW APPEARS SLEEPY BUT WOULD WAKE UP OFTEN. JUVENTINO VEST ON, DR PAZ IS AWARE PER CHARGE NURSE AND WAS NOTIFIED, DR PAZ TO COME SEE PT THIS AFTERNOON AND RE-EVALUATE. ACETADONE INFUSION ON GOING. CATHETER WAS PLACED WELL PT WAS RETAINING BLADDER SCAN SHOWS >500MLS RETAINED. WILL MONTITOR PT
--- NOTE | 2019-12-14 17:08 | NUR ---
Pt xfer from med fl @ 0839. At times somnolent with extended periods of apnea. When awake, pt is agitated and minimally directable. Pulls at lines, IV's, respiratory equipement. Physically and verbally aggressive towards staff. Was attempting to roll/crawl out of bed and refusing staff to assist. Pt placed in stanislaw vest, medicated w/ativan as ordered. RT at bedside shortly after arrival. Bipap pressures set to 22/17 which pt would tolerated for 15-30 min periods. When patiet removed respiratory equipment, O2 sat would decrease to 50-60's with good noted pleth on continuous biox. After a period of agitation, pt would experience decreased responsiveness at which time bipap was able to be placed again, lasting only until pt would awaken. Pt medicated w/ativan as ordered. At approx 1330, call placed to hospitalist to notify of pt's agitation and poor respiratory status, also informed of bladder scan result >500, telephone FC d/o received, new medication d/o received via PK. Requested pulm consult and physician rounding for assessment, agreed to round in 30 min, declined consult at that time. FC placed w/o difficulty, additional meds administered as ordered. Pt continuted to experience cycles of agitation and minimal responsiveness. After several staff members spent significant duration of shift in pt room call placed to hospitalist at 1800 for updated time on when able to round, discussed pt's status, determined pt needed xfer to higher level of care w/precedex gtt, new d/o received for xfer and pulm consult. Rpt provided to accepting RN by primary RN, xfer completed via bed at approx 1920, consult called to orchid superintendent.
--- NOTE | 2019-12-14 17:34 | NUR ---
PT SUMMARY: SEE PREVIOUS NOTES: PT FINALLY CALM DOWN AND RESTING AFTER 5MG HALDOL IM AND ATIVAN 2MG WAS GIVEN PT NOW SLEEPING ON BIPAP ON RA PER RT SETTINGS SATS ABOVE 95%. HOB ELAVATED BED IN LOW POSITION JUVENTINO VEST ON. DR PAZ DIDNT COME BY TO RE-EVALUATE PT THIS AFTERNOON. DR TERRELL CAME BY ORDERED REPEAT RENAL PANEL AT 1800. DR MCGUIRE ALSO WENT AND SAW PT TODAY CHANGED DRESSING ON LEFT INNER THIGH COOKIE DRAIN TO STAY IN PLACE FOR A COUPLE MORE DAYS. SANCHEZ DRAINING PATENT VIA GRAVITY. VITALS HRR SINUS 80'S INCREASES UP TO 100'S WHEN AGITATED, BP SYSTOLIC 150-170, SATS ABOVE 95% ON BIPAP, AFEBRILE. WILL REPORT TO ONCOMING SHIFT.
[2019-12-14 19:19] LABS: Albumin, Blood 2.1 g/dL (3.4-5.0); Anion Gap 9 mmol/L (6-16); Blood Urea Nitrogen 46 mg/dL (8-24); Bun/Creatinine Ratio 47.5 (12.0-20.0); CO2, Blood 22 mmol/L (21-32); Calcium, Blood 8.8 mg/dL (8.5-10.1); Chloride, Blood 109 mmol/L (98-108); Creatinine, Blood 0.97 mg/dL (0.40-1.00); Glomerular Filtration Rate >60 (60-); Glucose, Blood 214 mg/dL (70-99); Phosphorus, Blood 2.4 mg/dL (2.5-4.9); Potassium, Blood 6.6 mmol/L (3.5-5.5); Sodium, Blood 140 mmol/L (136-145)
--- NOTE | 2019-12-14 20:00 | NUR ---
PT ARRIVES TO ICU ROOM 13 FROM PCU AT 1915. REPORT RECEIVED IN PCU ROOM 9. PT MOANS AND DOES NOT OPEN EYES TO STIMULI. REACHES OFTEN FOR BIPAP MASK. PT SLIDE TRANSFERRED TO BED FROM PCU BED. NOTED PT HAVING DIFFICULTIES WITH MAINTAINING TIDAL VOLUMES ABOVE 200. DISCUSSED WITH RESPIRATORY THERAPIST ABOUT CHANGING OUT BIPAP TO V-SERIES BIPAP. THIS HAS BEEN DONE. PT NOTED TO HAVE GOOD TRIGGERING OF BIPAP WELL MAINTAINING TIDAL VOLUMES 300-600. THIS HAS DECREASED PT'S TRYING TO PULL AT MASK. DID PLACE SOFT WRIST RESTRAINTS TO PROTECT LINES AND BIPAP. WILL REVIEW CHART AND PLAN OF CARE FOR THIS PT.
--- NOTE | 2019-12-14 23:50 | NUR ---
CALL MADE TO DR TERRELL CONCERNING K+ LEVEL THAT WAS 6.6. INFORMED MD THAT THERE WAS SOME LYSING OF CELLS WITH SAMPLE. REDRAW DONE WHICH REVEALED K+ LEVEL 5.1 WITH NO LYSING OF CELLS. CALL MADE TO DR TERRELL FOR CORRECT K+ LEVEL. CALL MADE TO DR GONZALEZ WITH UPDATE PER HIS REQUEST. NO NEW ORDERS RECEIVED. DID CALL HOSPITALIST CARLIE PASTOR SECONDARY TO PT NOT BEING ABLE TO TAKE HER PO MEDS THIS DAY, AND HAVING BP'S ELEVATED. ORDERS RECEIVED. PT ALSO GIVEN 40 MG LASIX IV THIS EVENING. PT HAS Q.S. CLEAR/YELLOW URINE OUTBPUT. SEE I/O FOR VOLUMES. PT CONTINUES TO TOLERATE BIPAP MASK WELL. WILL CONTINUE TO MONITOR.
[2019-12-15 04:15] LABS: BASOPHILS ABSOLUTE AUTO 0.03 K/mm3 (0.00-0.23); BASOPHILS PERCENT AUTO 1 % (0-2); EOSINOPHILS ABSOLUTE AUTO 0.24 K/mm3 (0.00-0.68); EOSINOPHILS PERCENT AUTO 4 % (0-6); Hematocrit 32.2 % (33.0-51.0); Hemoglobin 10.2 g/dL (11.5-16.0); IMMATURE GRAN ABSOLUTE AUTO 0.03 K/mm3 (0.00-0.10); IMMATURE GRAN PERCENT AUTO 1 % (0-1); LYMPHOCYTES ABSOLUTE AUTO 1.24 K/mm3 (0.84-5.20); LYMPHOCYTES PERCENT AUTO 20 % (21-46); MONOCYTES ABSOLUTE AUTO 0.56 K/mm3 (0.16-1.47); MONOCYTES PERCENT AUTO 9 % (4-13); Mean Corpuscular HGB 30.8 pg (26.0-34.0); Mean Corpuscular HGB Conc 31.7 g/dL (31.5-36.5); Mean Corpuscular Volume 97 fL (80-100); Mean Platelet Volume 9.1 fL (9.1-12.4); NEUTROPHILS ABSOLUTE AUTO 4.02 K/mm3 (1.96-9.15); NEUTROPHILS PERCENT AUTO 66 % (41-73); Platelet Count 310 K/mm3 (150-400); RDW Coefficient Variation 14.4 % (11.7-14.2); RDW Standard Deviation 51.7 fL (35.1-46.3); Red Blood Cell Count 3.31 M/mm3 (3.80-5.20); White Blood Cell Count 6.12 K/mm3 (4.00-11.30)
[2019-12-15 04:33] LABS: Albumin, Blood 2.1 g/dL (3.4-5.0); Albumin/Globulin Ratio 0.4 (0.8-1.8); Bilirubin, Total 0.3 mg/dL (0.1-1.0); Bun/Creatinine Ratio 35.9 (12.0-20.0); Calcium, Blood 8.7 mg/dL (8.5-10.1); Creatinine, Blood 1.03 mg/dL (0.40-1.00); Globulin, Blood 4.8 g/dL (2.2-4.0); Potassium, Blood 4.6 mmol/L (3.5-5.5); Total Protein, Blood 6.9 g/dL (6.4-8.2)
--- NOTE | 2019-12-15 05:01 | NUR ---
PT HAS WORN THE BIPAP MASK THROUGHOUT THE NIGHT. HAVE REMOVED THE VEST RESTRAINTS AND HAVE LEFT WRIST RESTRAINTS. PT STILL MAKES ATTEMPTS AT PULLING AT LINES AND BIPAP MASK. WHEN GIVING PT A SMALL BREAK FROM BIPAP MASK TO ROOM AIR, PT BECOMES VERY VERBALLY AGGRESSIVE AND VULGAR. STATES SHE KNOWS THAT SHE IS IN [place], BUT WAS UNABLE TO STATE WHAT BUILDING THAT SHE WAS CURRENTLY IN. DID GIVE PT UPDATE ON HER PROGRESS THROUGH THE [facility] AND REASON SHE WAS TRANSFERRED FROM PCU TO ICU. PT HAS TOLERATED TURNS IN BED FAIR DURING THIS SHIFT. HAS >2000 ML URINE OUTPUT THIS SHIFT. MAINTAINS O2 SATURATIONS > 90 PERCENT ON BIPAP, BLOOD PRESSURES RESPONDED WELL TO IV LABATELOL. WILL CONTINUE TO MONITOR PT, AND WILL REPORT OFF TO ONCOMING RN. OF NOTE: DID NOT USE ANY ANXIOLYTICS OR PRECEDEX THIS NIGHT.
[2019-12-15 05:21] LABS: PCO2 Arterial 53.1 mmHg (35-45); PO2 Arterial 82.3 mmHg (80-100); pH Blood Arterial 7.31 (7.35-7.45)
--- NOTE | 2019-12-15 09:37 | NUR ---
ASSUMED CARE REPORT RECEIVED FROM ERIN SALAZAR. PT RESTING QUIETLY ON THE BIPAP. OPENS EYES TO VOICE, BUT ONLY MOANS. PT'S SPO2 100% ON 25% FIO2 ON BIPAP. PT TAKEN OFF BIPAP FOR ORAL CARE AND SPO2 REMAINED ABOVE 90% ON RA, HOWEVER PT'S BREATHS ARE SHALLOW AND SHE APPEARS TO BE OBSTRUCTING SOME. PT'S MENTATION IS POOR WELL. SHE WAS JUST MOANING UNTIL HER MOUTH GOT CLEANED AND SHE STARTED YELLING THAT SHE DIDN'T WANT IT, BUT THEN SHE WENT BACK TO SLEEP SOON ORAL CARE WAS COMPLETE. BIPAP REPLACED. DR. GONZALEZ CAME BY ON ROUNDS AND BIPAP OFF FOR 5-10 MINUTES BEFORE PT'S SPO2 DROPPED BELOW 90%. DR. GONZALEZ GAVE INSTRUCTIONS TO LEAVE BIPAP ON UNTIL PT IS MORE ALERT. NPO MEDS HELD WELL UNTIL PT IS MORE ALERT. DRESSINGS ON BOTH FEET CHANGED THIS MORNING. WILL WAIT FOR SURGERY TO COME BY BEFORE CHANGING THIGH DRESSING. DRAIN IS IN PLACE AND SKIN IS LIGHT PINK, RECEDING FROM OUTLINE DRAWN. PT'S SISTER AT THE BEDSIDE AND WAS UPDATED BY DR. GONZALEZ AND NURSING STAFF. CONTINUING TO MONITOR.
--- NOTE | 2019-12-15 12:17 | NUR ---
REASSESSMENT PT HAS WOKEN UP MORE THROUGHOUT THE MORNING, BUT STILL REMAINS DROWSY AND CONFUSED. SHE SPENT ABOUT HALF AN HOUR OFF THE BIPAP MAINTAINING HER SATS WHILE STAFF WAS IN THE ROOM BATHING HER. SHE REMEMBERED SHE WAS IN A HOSPITAL AND WAS FOLLOWING DIRECTIONS. ONCE LEFT ALONE PT FELL ASLEEP AND DESATURATED QUICKLY BELOW 70%, BIPAP PUT ON PT AND SHE QUICKLY REBOUNDED TO 100%. SPOKE WITH DR. GONZALEZ AND DECISION MADE TO DC HEAD CT SINCE SHE IS WAKING UP MORE. LUNGS REMAIN CLEAR. SR, BP ELEVATED. LABETALOL GIVEN ONCE. PT'S CAMPBELL CONFIRMED PT'S EYES HAVE HAD BLOOD AROUND THE IRISES SINCE BEFORE ADMIT DUE TO EYE INJECTIONS. RESTRAINTS OFF AT 1030. PT HAS LEFT BIPAP ON SINCE SHE FELL ASLEEP AGAIN. BED ALARM ON. CONTINUING TO MONITOR.
--- NOTE | 2019-12-15 13:26 | NUR ---
RESTRAINTS AFTER PT HAD BEEN SLEEPING FOR A COUPLE HOURS SHE WOKE UP AND STARTED YELLING, TRYING TO GET OUT OF BED. PT WAS NOT REDIRECTABLE, KEPT TRYING TO THROW HERSELF OVER THE SIDE OF THE BED TO GET UP. COULD NOT GIVE A REASON WHY SHE WANTED OUT OF BED. ULTIMATELY AHD TO RESTRAIN PT TO KEEP HER IN BED. WITH RESTRAINTS ON PT RELAXED SOME BUT IS STILL PULLING ON RESTRAINTS MAKING ATTEMPTS TO GET OUT OF BED. WILL CONTINUE TO MONITOR AND PROVIDE REDIRECTION.
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
--- NOTE | 2019-12-15 20:39 | NUR ---
ASSUMED CARE OF PT AT 1915. REPORT RECEIVED. PT PRESENTS INITIALLY IN BED SLEEPING. DOES AWAKEN TO VERBAL. PT INFORMED THAT HER DOCTOR HAS ORDERED ZYPREXA FOR AGITATION AND WILL HELP HER REST. AT FIRST SHE WAS REFUSING. AFTER ENCOURAGEMENT SHE WAS ABLE TO TAKE WITH WATER AND APPLESAUCE. MILD AGITATION NOTED. BI LAT WRIST RESTRAINTS IN PLACE. PT CURRENTLY ON ROOM AIR. MAINTAINS SATURATIONS > [address] PT ON BIPAP LATER THIS EVENING IF NEEDED. SPOKE WITH DR GONZALEZ ON TELEPHONE. DR GONZALEZ STATES LONG PT IS NOT OBSTRUCTING, AND IS MAINTAINING SATURATIONS > 90 PERCENT THAT SHE WOULD NOT NEED TO HAVE BIPAP ON. WILL CLOSELY MONITOR. PT CURRENTLY YELLING OUT FOR "PAWAN". WILL REVIEW CHART AND PLAN OF CARE FOR THIS PT.
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
--- NOTE | 2019-12-16 06:49 | NUR ---
SHIFT SUMMARY LYING IN LOW FOWLERS WITH EYES CLOSED WHILE LISTENING TO BOOKS ON TAPE. AAO X3, ESPINOZA, FOLLOWS ALL COMMANDS. HAS BEEN COOPERATIVE WITH CARE SINCE TAKING OVER CARE AT 0345HRS. APPEARS SOMULENT UNTIL WOKEN UP, THEN BECOMES AGITATED AND YELLS. DENIES PAIN, DISCOMFORT, OR FURTHER NEEDS OR WANTS AT THIS TIME. SAFETY MEASURES IN PLACE. WILL CONTINUE TO MONITOR AND GIVE HAND OFF TO ONCOMING SHIFT USING SBAR.
--- NOTE | 2019-12-16 07:41 | NUR ---
12/16/19 0741 Jessica Long VERIFICATIONS, AUDITS.
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
[2019-12-16 09:56] LABS: BASOPHILS ABSOLUTE AUTO 0.03 K/mm3 (0.00-0.23); BASOPHILS PERCENT AUTO 1 % (0-2); EOSINOPHILS ABSOLUTE AUTO 0.26 K/mm3 (0.00-0.68); EOSINOPHILS PERCENT AUTO 5 % (0-6); Hematocrit 35.4 % (33.0-51.0); Hemoglobin 11.3 g/dL (11.5-16.0); IMMATURE GRAN ABSOLUTE AUTO 0.04 K/mm3 (0.00-0.10); IMMATURE GRAN PERCENT AUTO 1 % (0-1); LYMPHOCYTES ABSOLUTE AUTO 1.18 K/mm3 (0.84-5.20); LYMPHOCYTES PERCENT AUTO 21 % (21-46); MONOCYTES PERCENT AUTO 5 % (4-13); Mean Corpuscular HGB 30.7 pg (26.0-34.0); Mean Corpuscular HGB Conc 31.9 g/dL (31.5-36.5); Mean Corpuscular Volume 96 fL (80-100); NEUTROPHILS ABSOLUTE AUTO 3.76 K/mm3 (1.96-9.15); NEUTROPHILS PERCENT AUTO 68 % (41-73); Platelet Count 330 K/mm3 (150-400); RDW Coefficient Variation 14.3 % (11.7-14.2); RDW Standard Deviation 50.5 fL (35.1-46.3); Red Blood Cell Count 3.68 M/mm3 (3.80-5.20); White Blood Cell Count 5.57 K/mm3 (4.00-11.30)
--- NOTE | 2019-12-16 10:00 | NUR ---
pt states she had to have a bm, gave her a bedpan, left room for a moment was across the room sitting in the chair, ambulated her to the toilet, and she had a large brown bm, linen on bed was changed, pt is mostly cooperative but very sleepy at this time, sat her in a recliner with a posy vest, she is sleeping at times and calling out at times. call light in reach.
[2019-12-16 10:13] LABS: Vancomycin, Trough 14.1 ug/mL (5.0-10.0)
[2019-12-16 10:17] LABS: Albumin, Blood 2.2 g/dL (3.4-5.0); Anion Gap 5 mmol/L (6-16); Blood Urea Nitrogen 25 mg/dL (8-24); Bun/Creatinine Ratio 29.4 (12.0-20.0); CO2, Blood 22 mmol/L (21-32); Calcium, Blood 8.8 mg/dL (8.5-10.1); Chloride, Blood 113 mmol/L (98-108); Creatinine, Blood 0.85 mg/dL (0.40-1.00); Glomerular Filtration Rate >60 (60-); Glucose, Blood 143 mg/dL (70-99); Phosphorus, Blood 2.3 mg/dL (2.5-4.9); Potassium, Blood 4.8 mmol/L (3.5-5.5); Sodium, Blood 140 mmol/L (136-145)
[2019-12-16 10:25] LABS: Anion Gap 5 mmol/L (6-16); Blood Urea Nitrogen 24 mg/dL (8-24); Bun/Creatinine Ratio 28.4 (12.0-20.0); CO2, Blood 22 mmol/L (21-32); Calcium, Blood 8.7 mg/dL (8.5-10.1); Chloride, Blood 113 mmol/L (98-108); Creatinine, Blood 0.85 mg/dL (0.40-1.00); Glomerular Filtration Rate >60 (60-); Glucose, Blood 141 mg/dL (70-99); Potassium, Blood 4.8 mmol/L (3.5-5.5); Sodium, Blood 140 mmol/L (136-145)
--- NOTE | 2019-12-16 12:31 | NUR ---
pt daughter came in to see her, pt was very mean to her, and demanding she take her to [facility], attempted to explain why we cant just send her there she told this nurse to shut up and stop talking to her she only wants to speak to her daughter, gave her the zyprexa that was held this am due to somulance, she took it willingly, daughter did speak with Dr. Mejias, and is upset with moms behavior, when she left pt is asking where she went. call light in reach.
--- NOTE | 2019-12-16 14:18 | NUR ---
pt resting quietly in bed, will be moving to pcu 4 via bed, report given to Johnna KHAN. informed pt. call light in reach.
--- NOTE | 2019-12-16 14:31 | NUR ---
pt left for pcu via bed with consulting sales manager in attendence with all her belongings.
--- NOTE | 2019-12-16 15:05 | NUR ---
BROUGHT TO PCU FROM ICU VIA BED. REPORT FROM QUINN BALL RN. SOFT RESTRAINTS BILATERAL WRISTS IN PLACE. A/A/0X1. SANCHEZ IN PLACE DRAINING CLEAR YELLOW URINE, BILATERAL FOOT WOUNDS WITH MEPLIX, LEFT INNER THIGH I & D SITE WITH DRESSING. PINROSE DRAIN TO LEFT THIGH PULLED OUT BY PT IN ICU, NOTIFIED DR. MCGUIRE, PER VERBAL ORDER FROM DR. MCGUIRE OK TO LEAVE OUT. WILL CONTINUE TO MONITOR.
--- NOTE | 2019-12-16 17:55 | NUR ---
SHIFT SUMMARY; NO ACUTE CHANGES DURING SHIFT. A/A/OX3. FOLLOWING DIRECTIONS, MAKES MULTIPLE REQUESTS WHEN IN ROOM. REMAINS IN BILATERAL WRIST RESTRAINTS. DUE TO PULLING AT LINES. WILL CONTINUE TO ASSESS AND MONITOR. CATH IN PLACE DRAINING CLEAR YELLOW URINE. OUT OF RESTRAINTS TO EAT DINNER. ATE WITH ONE ON ONE SUPERVISION. BILATERAL MEPLIX ON FEET, DRESSING TO LEFT INNER THIGH DRY AND INTACT OVER I & D SITE. REPOSTIONED IN BED WITH PILLOW UNDER CALFS WITH HEELS ELEVATED FROM BED. RESTING SUPINE AT THIS TIME WATCHING TV. WILL CONTINUE TO MONITOR AND TREAT UNTIL CHANGE OF SHIFT.
--- NOTE | 2019-12-17 05:14 | NUR ---
SHIFT SUMMARY NO ACUTE CHANGES THIS SHIFT. VSS, EXCEPT ONE INSTANCES OF HTN, PRN LABETOLOL SUCCESFUL AT DECREASING BP TO ACCEPTABLE RANGE. PT AXOX3, RESTRAINTS REMOVED AT 1900 ON CONDITION PATIENT WOULDN'T PULL AT IV/LINES. PT HAS BEEN COOPERATIVE WITH THIS AND RESTRAINTS HAVE REMAINED OFF. PT LAZO CONTINUED TO BE VERY CONFRONTIVE, DEFIANT, AND AT TIMES VULGAR WITH STAFF. WHEN ASKED WHY PATIENT IS SO UNHAPPY, SHE STATES "I DON'T KNOW BUT I WILL BE LEAVING TOMORROW NO MATTER WHAT". WHEN AKED ABOUT PULLING COOKIE TUBE PT STATES "I NEVER DID THAT". PT YELLING OUT OF ROOM INTEAD OF UING CALL LIGHT. PT PRESENTS TO BE FULLY ALERT TO SITUATION/PLACE/ACTIONS ETC. L LEG COOKIE DC SIGHT REMAINS STABLE W/OUT NEW DRAINAGE. POWERGLIDE REMAINS INTACT AT THIS TIME. WILL CONTINUE TO MONITOR UNTIL SHIFT CHANGE.
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
--- NOTE | 2019-12-17 11:09 | NUR ---
SPOKE WITH DAUGHTER ON PHONE AND EXPLAINED PT WANTING TO LEAVE AMA. DAUGHTER STATES PT HAS DONE THIS MULTIPLE TIMES AND UNDERSTANDS THE RISK AND BENEFIT. SHE WILL COME PICK HER UP.
--- NOTE | 2019-12-17 11:10 | NUR ---
PT YELLING "NURSE" FROM ROOM. WHEN ENTERING ROOM PT IS TEARFUL AND STATES SHE IS SORRY FOR THE WAY SHE TREATED ME AND DOESN'T KNOW WHATS WRONG WITH HER.
[2019-12-17] MEDS ORDERED: LINE600 PO (12:46)
[2019-12-17] MEDS ORDERED: VISBIOME PO (12:48)
--- NOTE | 2019-12-17 14:03 | NUR ---
DC'D HOME WITH DAUGHTER. VERBALIZES UNDERSTANDING OF INSTRUCTIONS, A/A/OX4 AT TIME OF DISCHARGE. [facility] THANKS STAFF FOR CARE WHEN LEAVING.
== END 2019-12-17 13:05 | disposition home or self-care (01) | DRG 853 ==
LOC: ER 15:03 → ICUW 20:38 → MEDS 20:38 → PCU 12-14 08:35 → ICUW 12-14 19:14 → PCU 12-16 14:31
PROVIDERS: Family Medicine; Internal Medicine; Pharmacist; Physician Assistant; Student in an Organized Health Care Education/Training Program; Surgery; ADMIT Internal Medicine
PROC: 0J9M0ZZ Drainage of Left Upper Leg Subcutaneous Tissue and Fascia, Open Approach (ICD-10-PCS; principal; 2019-12-13 12:45)
DX: A41.02 Sepsis due to Methicillin resistant Staphylococcus aureus (principal); G92 Toxic encephalopathy; J96.01 Acute respiratory failure with hypoxia; N17.0 Acute kidney failure with tubular necrosis; I50.22 Chronic systolic (congestive) heart failure; I13.0 Hypertensive heart and chronic kidney disease with heart failure and stage 1 through stage 4 chronic kidney disease, or unspecified chronic kidney disease; E87.4 Mixed disorder of acid-base balance; L02.416 Cutaneous abscess of left lower limb; E03.9 Hypothyroidism, unspecified; E11.51 Type 2 diabetes mellitus with diabetic peripheral angiopathy without gangrene; I25.10 Atherosclerotic heart disease of native coronary artery without angina pectoris; Z95.1 Presence of aortocoronary bypass graft; N18.3 Chronic kidney disease, stage 3 (moderate); E87.5 Hyperkalemia; Z87.891 Personal history of nicotine dependence; E66.9 Obesity, unspecified; Z68.37 Body mass index [BMI] 37.0-37.9, adult; E11.22 Type 2 diabetes mellitus with diabetic chronic kidney disease; Z79.4 Long term (current) use of insulin
CPT/HCPCS: 36415; 36600; 51702; 70450; 71045; 73701; 76770; 80048; 80053; 80069; 80202; 81001; 82140; 82550; 82570; 82803; 82947; 83605; 83735; 83880; 84100; 84132; 84300; 84439; 84443; 85025; 87040; 87070; 87075; 87077; 87086; 87147; 87186; 87205; 93880; 93926; 93971; 94660; 94762; 96361; 96365; 96366; 96375; 99284-25; A9270; A9270-GY; C1751; J0132; J0171; J0610; J1100; J1170; J1630; J1644; J1815; J1940; J2060; J2250; J2270; J2405; J3010; J3370; J7030; J7040; J7050; J7060; J7120; Q9967; U0002

== ENCOUNTER 2020-01-30 12:18 | Emergency (ER) | payer MEDICARE, OTHER ==
[~2020-01-30] VITALS: Ht 170.2 cm; Wt 108.9 kg
[~2020-01-30 12:18] MED LIST changes: +LINE600 PO; +PLAVIX75 MG PO; +VISBIOME PO
[2020-01-30 14:15] LABS: BASOPHILS ABSOLUTE AUTO 0.03 K/mm3 (0.00-0.23); BASOPHILS PERCENT AUTO 0 % (0-2); EOSINOPHILS ABSOLUTE AUTO 0.08 K/mm3 (0.00-0.68); EOSINOPHILS PERCENT AUTO 1 % (0-6); Hematocrit 37.8 % (33.0-51.0); Hemoglobin 11.1 g/dL (11.5-16.0); IMMATURE GRAN ABSOLUTE AUTO 0.04 K/mm3 (0.00-0.10); IMMATURE GRAN PERCENT AUTO 1 % (0-1); LYMPHOCYTES PERCENT AUTO 15 % (21-46); MONOCYTES ABSOLUTE AUTO 0.41 K/mm3 (0.16-1.47); MONOCYTES PERCENT AUTO 5 % (4-13); Mean Corpuscular HGB 28.8 pg (26.0-34.0); Mean Corpuscular HGB Conc 29.4 g/dL (31.5-36.5); Mean Corpuscular Volume 98 fL (80-100); Mean Platelet Volume 10.4 fL (9.1-12.4); NEUTROPHILS ABSOLUTE AUTO 6.25 K/mm3 (1.96-9.15); NEUTROPHILS PERCENT AUTO 78 % (41-73); Platelet Count 320 K/mm3 (150-400); RDW Standard Deviation 60.9 fL (35.1-46.3); Red Blood Cell Count 3.85 M/mm3 (3.80-5.20); White Blood Cell Count 8.01 K/mm3 (4.00-11.30)
[2020-01-30 14:46] LABS: Albumin, Blood 2.8 g/dL (3.4-5.0); Albumin/Globulin Ratio 0.5 (0.8-1.8); Bilirubin, Total 0.4 mg/dL (0.1-1.0); Bun/Creatinine Ratio 32.1 (12.0-20.0); Creatinine, Blood 1.87 mg/dL (0.40-1.00); Globulin, Blood 5.4 g/dL (2.2-4.0); Potassium, Blood 5.4 mmol/L (3.5-5.5); Total Protein, Blood 8.2 g/dL (6.4-8.2)
[2020-01-30] MEDS ORDERED: TORSE20 PO (17:11)
== END 2020-01-30 17:39 | disposition home or self-care (01) ==
LOC: ER 12:18
PROVIDERS: Physician Assistant
DX: I11.0 Hypertensive heart disease with heart failure (principal); I50.9 Heart failure, unspecified; I42.9 Cardiomyopathy, unspecified; E11.40 Type 2 diabetes mellitus with diabetic neuropathy, unspecified; E11.51 Type 2 diabetes mellitus with diabetic peripheral angiopathy without gangrene; I25.10 Atherosclerotic heart disease of native coronary artery without angina pectoris; M79.605 Pain in left leg; M79.604 Pain in right leg; Z79.899 Other long term (current) drug therapy; Z79.4 Long term (current) use of insulin; Z79.02 Long term (current) use of antithrombotics/antiplatelets
CPT/HCPCS: 36415; 71046; 80053; 83880; 85025; 93005; 93010; 96374; 99285-25

== ENCOUNTER → 2020-02-09 | Outpatient (CLI) | payer MEDICARE, OTHER ==
[~2020-02-09] MED LIST changes: +Aspir 8181 MG PO; +BASAGLAR K100 UNIT/6 SC; +Ventolin/Prove6.7 GM INH
== END | disposition home or self-care (01) ==
LOC: LAB UCHC 16:00 → LAB SHORT 16:00
DX: E11.621 Type 2 diabetes mellitus with foot ulcer (principal); L97.509 Non-pressure chronic ulcer of other part of unspecified foot with unspecified severity
CPT/HCPCS: 87070; 87075; 87077; 87147; 87186; 87205

== ENCOUNTER 2020-02-14 12:12 | Inpatient (IN) | payer MEDICARE, OTHER ==
[~2020-02-14] VITALS: Ht 157.5 cm; Wt 119.9 kg
[~2020-02-14 12:12] MED LIST changes: -Aspir 8181 MG PO; -BASAGLAR K100 UNIT/6 SC; -CARV3.125 PO; -GABA300 PO; -LEVSOD137 PO; -Lisinopril2.5 MG PO; -PLAVIX75 MG PO; -Ventolin/Prove6.7 GM INH
[2020-02-14] MEDS ORDERED: GABA300 PO (13:58)
[2020-02-14] MEDS ORDERED: CARV3.125 PO (13:58)
[2020-02-14] MEDS ORDERED: Lisinopril2.5 MG PO (13:59)
[2020-02-14] MEDS ORDERED: OXYC5 PO (13:59)
[2020-02-14] MEDS ORDERED: LEVSOD137 PO (13:59)
[2020-02-14] MEDS ORDERED: PLAVIX75 MG PO (14:00)
[2020-02-14] MEDS ORDERED: TORSE20 PO (14:01)
[2020-02-14] MEDS ORDERED: BASAGLAR K100 UNIT/6 SC (14:02)
[2020-02-14] MEDS ORDERED: Ventolin/Prove6.7 GM INH (14:06)
[2020-02-14] MEDS ORDERED: Aspir 8181 MG PO (14:06)
[2020-02-14 14:24] LABS: BASOPHILS ABSOLUTE AUTO 0.04 K/mm3 (0.00-0.23); BASOPHILS PERCENT AUTO 0 % (0-2); EOSINOPHILS ABSOLUTE AUTO 0.01 K/mm3 (0.00-0.68); EOSINOPHILS PERCENT AUTO 0 % (0-6); Hematocrit 35.3 % (33.0-51.0); Hemoglobin 10.1 g/dL (11.5-16.0); IMMATURE GRAN ABSOLUTE AUTO 0.07 K/mm3 (0.00-0.10); IMMATURE GRAN PERCENT AUTO 1 % (0-1); LYMPHOCYTES ABSOLUTE AUTO 0.46 K/mm3 (0.84-5.20); LYMPHOCYTES PERCENT AUTO 3 % (21-46); MONOCYTES ABSOLUTE AUTO 0.43 K/mm3 (0.16-1.47); MONOCYTES PERCENT AUTO 3 % (4-13); Mean Corpuscular HGB 27.1 pg (26.0-34.0); Mean Corpuscular HGB Conc 28.6 g/dL (31.5-36.5); Mean Corpuscular Volume 95 fL (80-100); Mean Platelet Volume 10.2 fL (9.1-12.4); NEUTROPHILS ABSOLUTE AUTO 14.23 K/mm3 (1.96-9.15); NEUTROPHILS PERCENT AUTO 93 % (41-73); Platelet Count 425 K/mm3 (150-400); RDW Coefficient Variation 16.8 % (11.7-14.2); RDW Standard Deviation 57.9 fL (35.1-46.3); Red Blood Cell Count 3.73 M/mm3 (3.80-5.20); White Blood Cell Count 15.24 K/mm3 (4.00-11.30)
[2020-02-14 14:28] LABS: Albumin, Blood 2.8 g/dL (3.4-5.0); Albumin/Globulin Ratio 0.5 (0.8-1.8); Bilirubin, Total 0.8 mg/dL (0.1-1.0); Bun/Creatinine Ratio 28.3 (12.0-20.0); Calcium, Blood 8.6 mg/dL (8.5-10.1); Creatinine, Blood 2.26 mg/dL (0.40-1.00); Globulin, Blood 6.1 g/dL (2.2-4.0); Potassium, Blood 6.9 mmol/L (3.5-5.5); Total Protein, Blood 8.9 g/dL (6.4-8.2)
[2020-02-14 15:25] LABS: Influenza A, PCR Negative (NEGATIVE); Influenza B, PCR Negative (NEGATIVE); Resp Syncytial Virus, PCR Negative (NEGATIVE); SARS-Cov-2 (COVID-19) PCR, MMC Negative (NEGATIVE)
[2020-02-14 16:14] LABS: Source, Urine Catheter
[2020-02-14 16:17] LABS: Appearance, Urine Hazy (Clear); Bilirubin, Urine Neg (Neg); Blood, Urine 1+ (Neg); Color, Urine Yellow (P-Yellow); Glucose Qualitative, Urine Neg (Neg); Ketones, Urine Neg (Neg); Leukocyte Esterase, Urine 1+ (Neg); Nitrite, Urine Neg (Neg); Protein, Urine 3+ (Neg); Specific Gravity, Urine 1.025 (1.003-1.022); Urobilinogen, Urine 1+ (Normal)
[2020-02-14 16:38] LABS: Bacteria Mod /hpf; Squamous Epithelial Cells Few /hpf (Few)
[2020-02-14 17:19] LABS: PCO2 Arterial 61.5 mmHg (35-45); PO2 Arterial 64.7 mmHg (80-100); pH Blood Arterial 7.26 (7.35-7.45)
[2020-02-14 20:53] LABS: Bun/Creatinine Ratio 27.9 (12.0-20.0); Calcium, Blood 8.8 mg/dL (8.5-10.1); Creatinine, Blood 2.44 mg/dL (0.40-1.00); Potassium, Blood 5.4 mmol/L (3.5-5.5)
--- NOTE | 2020-02-14 21:45 | NUR ---
PT TO ICU 4 VIA ZEYNEP WITH ED RN AND RT @ 2004. PT INTUBATED AND SEDATED, VENT SET AC 20/375/5/55%, PROPOFOL INF @ 10mcg/kg/min. MONITOR SHOWS SINUS RHYTHM WITH HR 60'S-70'S, PT HYPOTENSIVE WITH SBP 80'S. TEMP PROBE SANCHEZ WITH VERY LITTLE OUTPUT, TEMPERATURE 102.4, TYLENOL ADMINISTERED IN ED. ORDER FOR SOFT FLUID BOLUS OF 1L NS @ 200ml/hr UNTIL CENTRAL LINE CAN BE PLACED AND PRESSORS STARTED. OG IN PLACE WITH GREEN/BILE OUTPUT. J2EE ANDROID DEVELOPER AND US TO ROOM TO COMPLETE TESTS. PT BECAME VERY AGITATED, COUGHING VENT, PULLING AT RESTRAINTS, AND THROWING LEGS OVER SIDE OF BED. PROPOFOL INCREASED AND 100mcg FENTANYL ADMINISTERED. WOUNDS TO BILAT LOWER EXTREMETIES, SEE PHOTOS IN PTS CHART.
[2020-02-14 21:48] LABS: Adenovirus Not Detected (NOT DETECT); Bordetella pertussis Not Detected (NOT DETECT); Chlamydophila pneumoniae Not Detected (NOT DETECT); Coronavirus 229E Not Detected (NOT DETECT); Coronavirus HKU1 Not Detected (NOT DETECT); Coronavirus NL63 Not Detected (NOT DETECT); Coronavirus OC43 Not Detected (NOT DETECT); Human Metapneumovirus Not Detected (NOT DETECT); Human Rhinovirus/Enterovirus Not Detected (NOT DETECT); Influenza A/2009-H1 Not Detected (NOT DETECT); Influenza A/H1 Not Detected (NOT DETECT); Influenza A/H3 Not Detected (NOT DETECT); Influenza B Not Detected (NOT DETECT); Mycoplasma pneumoniae Not Detected (NOT DETECT); Parainfluenza Virus 1 Not Detected (NOT DETECT); Parainfluenza Virus 2 Not Detected (NOT DETECT); Parainfluenza Virus 3 Not Detected (NOT DETECT); Parainfluenza Virus 4 Not Detected (NOT DETECT); Respiratory Syncytial Virus Not Detected (NOT DETECT); SARS-Cov-2 (COVID-19), BioFire Not Detected (NOT DETECT)
[2020-02-14 23:28] LABS: Bun/Creatinine Ratio 26.9 (12.0-20.0); Calcium, Blood 8.7 mg/dL (8.5-10.1); Creatinine, Blood 2.53 mg/dL (0.40-1.00)
--- NOTE | 2020-02-15 | NUR ---
DR HASKINS TO PTS ROOM TO PLACE CENTRAL LINE, 2MG VERSED ADMINISTERED FOR PROCEDURE. PT TOLERATED WELL. CHEST XRAY COMPLETED AND DR ANTONIA OWUSU'D USE OF CL. NEW ORDERS FROM DR HASKINS TO CHANGE CS BOLUS TO 100ml/hr FOR A TOTAL OF 500ml AND TO HOLD HEPARIN BOLUS, FRANCOISE TO START HEPARIN GTT.
[2020-02-15 05:36] LABS: Stool Occult Blood Guaiac 1 Pos (Neg)
[2020-02-15 06:13] LABS: BASOPHILS ABSOLUTE AUTO 0.03 K/mm3 (0.00-0.23); BASOPHILS PERCENT AUTO 0 % (0-2); EOSINOPHILS ABSOLUTE AUTO 0.01 K/mm3 (0.00-0.68); EOSINOPHILS PERCENT AUTO 0 % (0-6); Hematocrit 30.5 % (33.0-51.0); Hemoglobin 8.8 g/dL (11.5-16.0); IMMATURE GRAN ABSOLUTE AUTO 0.08 K/mm3 (0.00-0.10); IMMATURE GRAN PERCENT AUTO 1 % (0-1); LYMPHOCYTES PERCENT AUTO 7 % (21-46); MONOCYTES ABSOLUTE AUTO 0.38 K/mm3 (0.16-1.47); MONOCYTES PERCENT AUTO 3 % (4-13); Mean Corpuscular HGB 27.3 pg (26.0-34.0); Mean Corpuscular HGB Conc 28.9 g/dL (31.5-36.5); Mean Corpuscular Volume 95 fL (80-100); Mean Platelet Volume 9.9 fL (9.1-12.4); NEUTROPHILS ABSOLUTE AUTO 12.43 K/mm3 (1.96-9.15); NEUTROPHILS PERCENT AUTO 89 % (41-73); Platelet Count 317 K/mm3 (150-400); RDW Coefficient Variation 16.8 % (11.7-14.2); RDW Standard Deviation 58.4 fL (35.1-46.3); Red Blood Cell Count 3.22 M/mm3 (3.80-5.20); White Blood Cell Count 13.93 K/mm3 (4.00-11.30)
[2020-02-15 06:27] LABS: Albumin, Blood 2.1 g/dL (3.4-5.0); Albumin/Globulin Ratio 0.4 (0.8-1.8); Bilirubin, Total 0.5 mg/dL (0.1-1.0); Bun/Creatinine Ratio 29.6 (12.0-20.0); Calcium, Blood 8.5 mg/dL (8.5-10.1); Creatinine, Blood 2.3 mg/dL (0.40-1.00); Globulin, Blood 4.8 g/dL (2.2-4.0)
[2020-02-15 06:28] LABS: Total Protein, Blood 6.9 g/dL (6.4-8.2)
--- NOTE | 2020-02-15 07:26 | NUR ---
SHIFT SUMMARY PT REMAINS INTUBATED, VENT SET TO AC 20/375/5/30%, PROPOFOL ON SB, PRECEDEX INF @ 0.4mcg/kg/hr, PT AROUSES TO VERBAL STIMULI, SQUEEZES HAND AND OPENS EYES UPON COMMAND, NOT ANSWERING YES/NO QUESTIONS AT THIS TIME. LEVO GTT ON SB, BP REMAINS VERY LABILE. OGT WITH BROWN, COFFEE GROUND LIKE OUTPUT, ORDER FOR GUAIAC, RESULTS POSITIVE. TEMP PROBE SANCHEZ IN PLACE, NO BM THIS SHIFT. REPORT GIVEN TO GREGORIA KHAN.
--- NOTE | 2020-02-15 07:50 | NUR ---
ASSUMED CARE PT. REMAINS ON VENT T/O [employer] DIVISION. AC 20, TV 375, PEEP5, 30%. PT. PROPOFOL ON SB AT THIS TIME TO ASSESS NEURO STATUS. PRECEDEX GTT AT 0.4MCG/KG/MIN. PT. STARTLES AWAKE TO VERBAL STIMULI. ESPINOZA, HOWEVER NOT FOLLOWING COMMANDS, OR TRACKING AT THIS TIME. LS CLEAR T/O. LEVOPHED GTT RESTARTED AT 2MCGMCG/MIN TO MAINTAIN MAP >65 SEE FLOWSHEET FOR TITRATIONS. ABD SOFT, NO GRIMACE WITH PALPATION. PT. OG TUBE REMAINS TO LIS, WITH BROWNISH/ GREEN LIQUID FROM OG. PT. HAS BANDAGES IN PLACE TO LE WOUNDS, PHOTOS IN CHART. NADN AT THIS TIME. WILL CONTINUE TO MONITOR.
[2020-02-15 09:54] LABS: Hematocrit 33.5 % (33.0-51.0); Hemoglobin 9.6 g/dL (11.5-16.0)
--- NOTE | 2020-02-15 14:59 | NUR ---
EXTUBATION DR OSUNA ROUNDED ON PT. PT ABLE TO FOLLOW COMMANDS. COUGH/GAG/SWALLOW REFLEX PRESENT. MIMIMAL SECRETIONS THROUGH ETT. PRECEDEX PLACED ON STANDBY. LUNGS CLEAR. PT EXTUBATED AT 1415. PLACED ON 2L VIA NC. PT TOLERATED WELL. RESTRAINTS REMOVED UPON EXTUBATION.
--- NOTE | 2020-02-15 17:44 | NUR ---
SHIFT SUMMARY ASSUMED CARE OF PT AT 1100. REPORT FROM GREGORIA KHAN. PT EXTUBATED THIS SHIFT. TOLERATED WELL. PT HAS INTERMITTANT PERIODS OF APNEA, O2 SATS REMAIN >95%. DAUGHTER REPORTS HX OF UNDIAGNOSED SLEEP APNEA. STRONG COUGH, PT SWALLOW SECRETIONS. PASSED BEDSIDE SWALLOW s DIFFICULTY. ADVANCE DIET TOLERATED. CARDIOLOGY CONSULT THIS SHIFT. EKG DONE AND SHOWN TO DR ROBLEDO AND ENRRIQUE. PER DR ROBLEDO, CONTINUE HEPARIN GTT FOR 48 HOURS. LIKELY WILL GET STRESS TEST PRIOR TO DISCHARGE. HEPARIN GTT CONTINUES AT 16 UNITS/KG/HR, LEVOPHED ON STANDBY. TMAX 101.3, TYLENOL GIVEN c RELIEF. WILL CONTINUE TO MONITOR UNTIL REPORT TO ONCOMING NURSE.
--- NOTE | 2020-02-15 21:00 | NUR ---
ASSUMPTION OF CARE PT ALERT AND ORIENTED TO SELF, EVENT, LOCATION AND FOLLOWING DIRECTIONS. PT ON 2L PER NC TO MAINTAIN OXYGEN SATURATIONS>90%. MONITOR SHOWS SINUS RHTYHM, HR 70'S, LEVO INF @ 1mcg/min PLACED ON SB @ 1999 WITH GOAL MAPS> 65. PT TOLERATING PO INTAKE. REPORTS PAIN TO BILAT FEET/LEGS, MEDICATED WITH FENTANYL. SANCHEZ IN PLACE DRAINING YELLOW URINE. PT MOVES ALL EXTREMETIES, ABLE TO MAKE SMALL REPOSITIONS IN BED INDEPENDENTLY. CALL LIGHT WITHIN REACH.
[2020-02-16 06:33] LABS: BASOPHILS ABSOLUTE AUTO 0.03 K/mm3 (0.00-0.23); BASOPHILS PERCENT AUTO 0 % (0-2); EOSINOPHILS ABSOLUTE AUTO 0.15 K/mm3 (0.00-0.68); EOSINOPHILS PERCENT AUTO 1 % (0-6); Hematocrit 31.2 % (33.0-51.0); Hemoglobin 8.9 g/dL (11.5-16.0); IMMATURE GRAN ABSOLUTE AUTO 0.05 K/mm3 (0.00-0.10); IMMATURE GRAN PERCENT AUTO 0 % (0-1); LYMPHOCYTES ABSOLUTE AUTO 1.59 K/mm3 (0.84-5.20); LYMPHOCYTES PERCENT AUTO 13 % (21-46); MONOCYTES ABSOLUTE AUTO 0.68 K/mm3 (0.16-1.47); MONOCYTES PERCENT AUTO 6 % (4-13); Mean Corpuscular HGB 27.4 pg (26.0-34.0); Mean Corpuscular HGB Conc 28.5 g/dL (31.5-36.5); Mean Corpuscular Volume 96 fL (80-100); Mean Platelet Volume 9.9 fL (9.1-12.4); NEUTROPHILS ABSOLUTE AUTO 9.57 K/mm3 (1.96-9.15); NEUTROPHILS PERCENT AUTO 79 % (41-73); Platelet Count 317 K/mm3 (150-400); RDW Coefficient Variation 17.1 % (11.7-14.2); RDW Standard Deviation 60.9 fL (35.1-46.3); Red Blood Cell Count 3.25 M/mm3 (3.80-5.20); White Blood Cell Count 12.07 K/mm3 (4.00-11.30)
--- NOTE | 2020-02-16 06:41 | NUR ---
SHIFT SUMMARY PT AWAKE FOR MUCH OF NIGHT, REMAINS ORIENTED x4, REPORTS SIGNIFICANT PAIN TO BILAT LOWER EXTREMETIES, REPOSITIONING, FENTANYL x4, OXYCODONE x1 ONLY EFFECTIVE FOR SHORT TIME. PT ON 2L PER NC TO MAINTAIN O2> 90%. BP STABLE OFF OF LEVOPHED SINCE 1999. PT TOLERATING PO INTAKE. SANCHEZ IN PLACE DRAINING DARK YELLOW URINE. WOUNDS TO BLE'S OPEN TO AIR WITH ONE DRESSING TO R FOOT. PT REPORTS SHE DOES NOT SEE A SPECIALIST FOR THE WOUNDS AND HAS NO SPECIFIC WOUND CARE PROVIDED AT HOME. PT STS SHE TAKES 5mg OXYCODONE BID FOR THE PAIN WHICH IS GENERALLY ADEQUATE FOR PAIN MANAGEMENT. CALL LIGHT WITHIN REACH, PT NEEDS ASSISTANCE FOR USE.
[2020-02-16 06:51] LABS: Calcium, Blood 8.6 mg/dL (8.5-10.1); Creatinine, Blood 1.71 mg/dL (0.40-1.00); Magnesium, Blood 2.2 mg/dL (1.6-2.4); Phosphorus, Blood 3.8 mg/dL (2.5-4.9); Potassium, Blood 4.9 mmol/L (3.5-5.5)
--- NOTE | 2020-02-16 13:08 | NUR ---
REASSESSMENT PT HAS BEEN RESTING IN BED THROUGHOUT THE MORNING. SHE HAS BEEN COMPLAINING OF NECK PAIN ABOVE THE INSERTION SITE OF HER IJ. NO SWELLING, CREPITUS OR HEMATOMA NOTED. PT HASN'T BEEN ON PRESSORS SINCE 1999 LAST NIGHT SO DISCUSSED WITH DR. DAY AND RECEIVED OK TO DC IT ONCE A SECOND SITE PLACED. SECOND SITE PLACED IN R UPPER ARM AND IJ DC'D WITHOUT COMPLICATION. PT TOLERATED IT WELL. PT STILL COMPLAINS OF LEG PAIN BUT DOES NOT SEEM TO BE YELLING OUT MUCH. PT'S HOME OXYCODONE REGIMEN ALSO STARTED BY DR. ROBERTS TO HELP WITH PAIN CONTROL. PT'S LUNGS ARE CLEAR, BUT DIM. SHE SATS 100% ON RA WHILE AWAKE BUT SOON SHE STARTS TO DRIFT OFF A LITTLE HER SATS DROP TO THE MID 80S REQUIRING 2L/NC TO GET SPO2 BACK ABOVE 90%. SR, BP STABLE WITH SBP IN THE 140S. PT ATE FULL LIQUID BREAKFAST WITHOUT ANY DIFFICULTY OR NAUSEA. OK FROM MD TO ADVANCE DIET TOLERATED SO SWITCHED PT TO ADA DIET FOR LUNCH AND PT TOLERATED WELL. PT'S LOWER LEGS REMAIN PINK, SORES UNCHANGED. SPOKE WITH PT'S CAMPBELL AND PROVIDED UPDATE. CONTINUE TO MONITOR.
--- NOTE | 2020-02-16 15:55 | NUR ---
pt arrived from icu to pcu 5 via bed. she is moaning, got her settled in, v.s. stable. no complaints, call light in reach.
--- NOTE | 2020-02-16 16:11 | NUR ---
TRANSFER PT TRANSFERRED TO PCU 5 VIA BED WITH RN. REPORT GIVEN TO ERIN MINAYA. PT'S EX-/ROOMMATE AT BEDSIDE AT TIME OF TRANSFER. ALL BELONGINGS TRANSFERRED WITH PT. PT TOLERATED TRANSFER WELL.
[2020-02-16 16:12] LABS: Vancomycin, Trough 20.4 ug/mL (5.0-10.0)
--- NOTE | 2020-02-16 18:02 | NUR ---
pt resting quietly, no needs at this time. call light in reach.
--- NOTE | 2020-02-16 22:14 | NUR ---
ASSUMED CARE OF PATIENT AT APPROXIMATELY 1905 FROM MARIMAR Ribera RN. PATIENT ALERT AND ORIENTED TO SELF; MOANS OUT INTO HALLWAY; DENIES PAIN THEN REPORT HER WHOLE BODY HURTS; MEDICATED PER EMAR; REPORT GABAPENTIN DOESN'T HELP. PATIENT DENIES NAUSEA OR DIZZINESS. BEDREST; Q2H TURNS; PATIENT ASSISTS MINIMALLY; ISOLATION FOR MRSA. NSR ON TELE; OXYGEN SATURATION ABOVE 90% ON 2LPM VIA NC. HEPARIN GTT AND OTHER PIV S/L. MULTIPLE WOUNDS NOTED; OLD IJ SITE. PATIENT REPORTS LEGS HURT THE MOST; MOVEMENT OR TOUCH INCREASES PAIN; MEDICATED ONCE WITH FENTANYL; GOOD RESULTS. PATIENT CURRENTLY RESTING IN BED; CALL LIGHT IN REACH; BED IN LOWEST POSISTION; BED ALARM ON; WILL CONTINUE TO MONITOR AND ASSESS UNTIL END OF SHIFT.
--- NOTE | 2020-02-17 02:06 | NUR ---
PATIENT MOANING ALL SHIFT; ATTEMPTED TO AMBULATE TWICE; PATIENT WEAK; 2 MAX ASSIST FOR TURNING; PATIENT PUT LEGS OVER SIDE OF BED AND ATTEMPTED TO KICK A STAFF MEMBER. PATIENT DOESNT USE CALL AND CALLS OUT INTO HALLWAY "HELP" PATIENT REPORTS THAT SHE WANTS TO SIT UP THEN MINUTES AFTER BEING REPOSISTIONED PATIENT YELLS OUT AGAIN AND WANT TO LAY DOWN MORE. PATIENT MEDICATED PER EMAR FOR PAIN.
--- NOTE | 2020-02-17 05:54 | NUR ---
PATIENT SLEPT ABOUT TWO HOURS; CALLED OUT FREQUENTLY; PATIENT CAN BE HEARD DOWDN HALLWAY. NO OTHER ACUTE CHANGES TO REPORT. WILL CONTINUE TO MONITOR AND ASSESS UNTIL END OF SHIFT.
[2020-02-17 08:40] LABS: BASOPHILS ABSOLUTE AUTO 0.03 K/mm3 (0.00-0.23); BASOPHILS PERCENT AUTO 0 % (0-2); EOSINOPHILS ABSOLUTE AUTO 0.03 K/mm3 (0.00-0.68); EOSINOPHILS PERCENT AUTO 0 % (0-6); Hematocrit 32.2 % (33.0-51.0); Hemoglobin 9.1 g/dL (11.5-16.0); IMMATURE GRAN ABSOLUTE AUTO 0.08 K/mm3 (0.00-0.10); IMMATURE GRAN PERCENT AUTO 1 % (0-1); LYMPHOCYTES ABSOLUTE AUTO 0.95 K/mm3 (0.84-5.20); LYMPHOCYTES PERCENT AUTO 8 % (21-46); MONOCYTES ABSOLUTE AUTO 0.53 K/mm3 (0.16-1.47); MONOCYTES PERCENT AUTO 4 % (4-13); Mean Corpuscular HGB 27.1 pg (26.0-34.0); Mean Corpuscular HGB Conc 28.3 g/dL (31.5-36.5); Mean Corpuscular Volume 96 fL (80-100); Mean Platelet Volume 9.7 fL (9.1-12.4); NEUTROPHILS ABSOLUTE AUTO 10.65 K/mm3 (1.96-9.15); NEUTROPHILS PERCENT AUTO 87 % (41-73); NRBC ABSOLUTE 0.02 K/mm3 (0.00-0.02); NRBC Auto 0.2 /100 WBC (0.0-0.2); Platelet Count 375 K/mm3 (150-400); RDW Coefficient Variation 17.2 % (11.7-14.2); RDW Standard Deviation 61.2 fL (35.1-46.3); Red Blood Cell Count 3.36 M/mm3 (3.80-5.20); White Blood Cell Count 12.27 K/mm3 (4.00-11.30)
[2020-02-17 08:50] LABS: Bun/Creatinine Ratio 40.1 (12.0-20.0); Creatinine, Blood 1.37 mg/dL (0.40-1.00); Magnesium, Blood 2.3 mg/dL (1.6-2.4); Phosphorus, Blood 3.1 mg/dL (2.5-4.9); Potassium, Blood 5.7 mmol/L (3.5-5.5)
--- NOTE | 2020-02-17 10:01 | NUR ---
PATIENT IS ALERT AND ORIENTED TO SELF AND PLACE BUT HAS CONFUSION ON DATE. ANSWERS QUESTIONS APPROPRIATLEY AT TIMES BUT FALLS ASLEEP DURING CONVERSTAION. PATIENT HAD TROUBLE GETTING FOOD TO HER MOUTH USING UTENSILS AND WOULD DROP THE UTENSIL, PATIENT STATES SHE DOES NOT KNOW WHY THIS IS HAPPENING. ASSISTANCE PROVIDED WITH BREAKFAST. TALKED WITH , ORDERS FOR PT AND OT EVAL ORDERED. PATIENT BECOMING INCREASINGLY TIRED AND WANTS TO BE LEFT ALONE. DENIES PAIN WHEN ASKED. PATIENT BEING REPOSITIONED REGULARLY. PATIENT IS CURRENTLY SLEEPING. 02 SATS >90% ON 3L VIA NC. VSS, NO ACUTE CHANGES. CALL LIGHT IN REACH, BED ALARM ON. WILL CONTINUE TO MONITOR.
[2020-02-17 12:42] LABS: PCO2 Arterial 53.4 mmHg (35-45); PO2 Arterial 86.8 mmHg (80-100); pH Blood Arterial 7.31 (7.35-7.45)
[2020-02-17 18:07] LABS: Vancomycin, Trough 21.2 ug/mL (5.0-10.0)
--- NOTE | 2020-02-17 18:40 | NUR ---
SUMMARY PATIENT SLEPT MOST THE DAY, UNABLE TO FEED HERSELF. WESLEYAGHTER/CAREGIVER CAME TO VISIT PATIENT AND PATIENT WOKE UP, WAS ABLE TO HOLD A CONVERSATION, AND FEED HERSELF. PATIENTS DAUGHTER STATES AT BASELINE THE PATIENT WALKS AT HOME IF NEEDED. PATIENT REFUSED TO SIT AT SIDE OF BED FOR PT, BUT COULD LIFT ARMS AND LEGS. PATIENT BECAME PAINFUL AND WAS REPOSITIONED AND MEDICATED, SEE EMAR. PATIENT STILL YELLS OUT AT TIMES AND WHEN ASKED IF SOMETHING IS WRONG, THE PATIENT STATES SHE IS OK. VSS, NO ACUTE CHANGES. CALL LIGHT IN REACH.
--- NOTE | 2020-02-17 18:56 | NUR ---
CALLED ABOUT AM POTASSIUM LEVEL, TOLD ME TO CALL NIGHT HOSPITALIST, NIGHT HOSPITALIST DID NOT GIVE ANY FURTHER ORDERS.
[2020-02-18 01:25] LABS: Bun/Creatinine Ratio 41.9 (12.0-20.0); Calcium, Blood 8.7 mg/dL (8.5-10.1); Creatinine, Blood 1.29 mg/dL (0.40-1.00); Magnesium, Blood 2.3 mg/dL (1.6-2.4); Phosphorus, Blood 2.8 mg/dL (2.5-4.9); Potassium, Blood 5.5 mmol/L (3.5-5.5)
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
--- NOTE | 2020-02-18 10:56 | NUR ---
PT DAUGHTER CARI PHONED AND UPDATE PROVIDED.
--- NOTE | 2020-02-18 11:16 | NUR ---
PT REFUSING TO BE REPOSITIONED/TURN ON HER SIDE. SHIFTED PT HIPS AND REPOSITIONED LIMBS ON PILLOWS.
--- NOTE | 2020-02-18 13:04 | NUR ---
PT MORE COOPERATIVE WITH CARE. TOLERATED BED BATH AND LINEN CHANGE WELL. REPORTS 7/10 GENERALIZED PAIN. MED WITH OXYCODONE PO-SEE EMAR.
--- NOTE | 2020-02-18 13:44 | NUR ---
PT DRANK 220 CC OF ST[place]ON ENSURE. CONTINUES TO HAVE A POOR APPETITE. PT RESTING INTERMITTENTLY WHEN NOT DISTURBED. PT MORE COOPERATIVE WITH CARE.
--- NOTE | 2020-02-18 14:30 | NUR ---
DR. ROBERTS CONTACTED WITH UPDATED VS AND MD MADE AWARE THAT RIGHT FOOT WOUND APPEARS WORSE THAN PHOTOS TAKEN ON 02/14/20. PT MED WITH FENTANYL 50 MCG IVP X 1,THEN DRESSING REMOVED AND PHOTO TAKEN. DR. ROBERTS ABLE TO VISUALIZE THE RIGHT FOOT WOUND. WOUND CARE COMPLETED AGAIN AND DRESSING APPLIED. PT HAS BEEN MOANING IN HER SLEEP. PT BED ALARM SOUNDING. JUST PRIOR TO WOUND CARE, PT WAS FOUND AT THE BEDSIDE. SHE HAD SAT HERSELF UP AND WAS SITTING AT THE BEDSIDE. SHE FED HERSELF 100% OF A CHOCOLATE PUDDING. WHILE SITTING UP, PT HAD CIRCUMORAL CYANOSIS AND SATS 88% ON 2 LITERS. PT ALSO, COMPLAINING THAT HER "BUTT HURTS." PT ENCOURAGED TO ALLOW STAFF TO TURN HER OFF OF HER BACKSIDE EVERY 2 HOURS. PT REFUSES. COCCYX AND BUTTOCKS ARE SLIGHTLY RED, BUT NO BREAKDOWN AT THIS TIME. FOAM DRESSING PLACED PREVENTATIVE MEASURE. PT DID ALLOW RN TO REPOSITION HER ONTO HER LEFT SIDE AFTER DRESSING PLACED. SATS 99% ON 3 LITERS NASAL CANULA. NO CYANOSIS NOTED. NO NOTED RESP DISTRESS. PT APPEARS TO BE SLEEPING.
--- NOTE | 2020-02-18 15:35 | NUR ---
medicated with ativan sublingually prior to MRI.
--- NOTE | 2020-02-18 16:13 | NUR ---
PT PREMED WITH ATIVAN PO-SEE EMAR, THEN TO MRI VIA BED. PT STILL INTERMITTENTLY AGITATED AND REPORTS 7/10 LEG PAIN.
[2020-02-18 16:32] LABS: C-REACTIVE PROTEIN, EXT RANGE 14.8 mg/dL (0.000-0.300)
--- NOTE | 2020-02-18 16:39 | NUR ---
PT RETURNED FROM MRI. HOUSEKEEPING AND LAUNDRY TEAM LEADER REPORTS THAT PT IS UNABLE TO COMPLETE THE TEST SHE WAS TRYING TO GET OFF OF THE MRI TABLE. DR. ROBERTS NOTIFIED.
[2020-02-18 16:44] LABS: Bun/Creatinine Ratio 39.9 (12.0-20.0); Calcium, Blood 8.7 mg/dL (8.5-10.1); Creatinine, Blood 1.38 mg/dL (0.40-1.00)
--- NOTE | 2020-02-18 17:05 | NUR ---
DR. ROBERTS UPDATED TO RECENT LAB RESULTS. ESR>140. SODIUM 131. POTASSIUM 6.0, CRP 14.8, BUN 55, CREATININE 1.38. DR. ROBERTS TO DISCUSS RESULTS WITH AND CALL RN BACK WITH ORDERS.
--- NOTE | 2020-02-18 17:36 | NUR ---
12 lead ECG DONE. NS 500 CC BOLUS INITIATED. REGULAR INSULIN 10 UNITS SC GIVEN PER DR. ROBERTS ORDERS. WILL RESUME TELE.
--- NOTE | 2020-02-18 17:46 | NUR ---
CALCIUM GLUCONATE 2000 MG INITIATED. PT RESTING QUIETLY AT THIS TIME. RE-CHECK LABS AT 2029.
[2020-02-18 20:47] LABS: Bun/Creatinine Ratio 46.4 (12.0-20.0); Calcium, Blood 9.2 mg/dL (8.5-10.1); Creatinine, Blood 1.25 mg/dL (0.40-1.00); Potassium, Blood 5.9 mmol/L (3.5-5.5)
[2020-02-19 04:10] LABS: Hemoglobin 8.9 g/dL (11.5-16.0); Mean Corpuscular HGB 26.1 pg (26.0-34.0); Mean Corpuscular Volume 97 fL (80-100); NRBC ABSOLUTE 0.06 K/mm3 (0.00-0.02); NRBC Auto 0.6 /100 WBC (0.0-0.2); Platelet Count 352 K/mm3 (150-400); RDW Coefficient Variation 17.2 % (11.7-14.2); RDW Standard Deviation 60.9 fL (35.1-46.3); Red Blood Cell Count 3.41 M/mm3 (3.80-5.20); White Blood Cell Count 9.76 K/mm3 (4.00-11.30)
[2020-02-19 06:24] LABS: Bun/Creatinine Ratio 42.5 (12.0-20.0); Calcium, Blood 9.2 mg/dL (8.5-10.1); Creatinine, Blood 1.34 mg/dL (0.40-1.00)
--- NOTE | 2020-02-19 07:40 | NUR ---
ASSUMING CARE OF PT. RECEIVED REPORT FROM ERIN HOLLINS. PT TALKING IN NONSENSICAL PATTERN, EYES APPEAR OUT OF FOCUS. PT DOES NOT BECOME MORE ALERT WHILE BEDSIDE REPORT TAKES PLACE. PER REPORT, PT HAS BEEN LIKE THIS T/OUT NOC SHIFT. WILL CONTINUE TO MONITOR AND TREAT ACCORDINGLY.
--- NOTE | 2020-02-19 08:08 | NUR ---
SHIFT SUMMARY PT WAS RESPONSIVE ONLY TO PAINFUL STIMULI AT START OF SHIFT, BECAME MORE RESPONSIVE BY MORNING. PT WAS VERY AGITATED AND YELLING OUT, CONFUSED AND SPEAKING INCOMPREHENSIBLE WORDS. SHE WOULD RESPOND TO SOME QUESTIONS INAPPROPRIATELY AND BECAME COMBATIVE WITH STAFF. PT BECAME MORE ANGERY AND RESPONSIVE INTO THE MORNING. TELE MONITOR SHOWED SOME ST CHANGES FROM STATR TO END OF SHIFT, EKG WAS DONE IN AM. BP WAS HYPERTENSIVE, MORE SO WHEN PT WAS AWAKE AND AGITATED. URINE OUTPUT WAS LOW AND PT DID NOT HAVE A BM. WILL CONTINUE TO MONITR UNTIL SHIFT CHANGE.
--- NOTE | 2020-02-19 11:26 | NUR ---
pt is very agitated, yelling out very frequently. Has attempted OOB independently, pulling off oxygen, pulling off SPO2 monitor, and is very confused. Spoke with Dr. Monroy about 1.5 hours ago, and if pt does not improve in her mentation, plan for ABG at noon and possibly CT scan of head this afternoon. In between her bursts of agitation and attempts to get OOB, she is lethargic. Oxygen levels when keeping her nasal cannula in place are 92-93% on 2-3 l/min.
--- NOTE | 2020-02-19 12:15 | NUR ---
NO IMPROVEMENT IN MENTATION. PT REMAINS LETHARGIC
[2020-02-19 12:28] LABS: PCO2 Arterial 56.1 mmHg (35-45); PO2 Arterial 64.5 mmHg (80-100)
[2020-02-19 12:29] LABS: pH Blood Arterial 7.26 (7.35-7.45)
[2020-02-19 12:35] LABS: Bun/Creatinine Ratio 45.7 (12.0-20.0); Calcium, Blood 9.2 mg/dL (8.5-10.1); Creatinine, Blood 1.27 mg/dL (0.40-1.00); Potassium, Blood 5.4 mmol/L (3.5-5.5)
--- NOTE | 2020-02-19 14:04 | NUR ---
Dr. Monroy here to see the pt.
--- NOTE | 2020-02-19 17:20 | NUR ---
SHIFT SUMMARY: PT CONTINUES TO BE CONFUSED, ALTERNATING BETWEEN PERIODS OF LETHARGY AND AGITATION. WHEN LETHARGIC, PT RESTS QUIETLY WITH EYES CLOSED AND WILL OCCASIONALLY MOAN OR CALL OUT. WHEN AGITATED, PT WILL PULL OFF OXYGEN TUBING, TELEMETRY, SPO2 MONITOR, AND ATTEMPTING TO EXIT BED. PT PULLED OUT ONE IV TODAY AND HAS REQUIRED STATLOCK REPLACEMENT ON HER SANCHEZ X3 TODAY. DR ROY INFORMED OF PT CONDITION T/OUT DAY, HAS BEEN TO SEE PT TWICE AND ALSO CAME TO SPEAK WITH VISITORS WHEN THEY ARRIVED TODAY. PER PT'S CAREGIVER AND EX-, PT BASELINE MENTATION CONSISTS OF MORE ALERTNESS AND ABILITY TO CARRY CONVERSATION. PER DR ROY, POC IS TO CONTINUE TO TREAT PT WITH ABX THERAPY AND TO HOLD ALL MEDICATIONS THAT MAY INTERFERE WITH PT'S LEVEL OF MENTATION. MRI DID NOT TAKE PLACE TODAY D/T PT CONDITION. REPEAT LABS SHOW A DECLINE OF K+ LEVELS TO WNL. PT REPOSITIONED REGULARLY T/OUT SHIFT. PT ALSO MOVED CLOSER TO NURSE STATION FOR CLOSER MONITORING. WILL CONTINUE TO MONITOR AND TREAT ACCORDINGLY UNTIL CHANGE OF SHIFT.
[2020-02-19 21:08] LABS: Vancomycin, Trough 21.5 ug/mL (5.0-10.0)
--- NOTE | 2020-02-20 04:43 | NUR ---
SHIFT SUMMARY PT WAS MUCH MORE RESPONSIVE AND ALERT THAN PREVIOUS NIGHT. PT WAS ABLE TO ANSWER QUESTIONS AND CARRY CONVERSATION. AAOX3. STILL SLIGHTLY CONFUSED, CRYING OUT FOR HER MOTHER AND FORGETTING WHERE SHE WAS. PT WAS MUCH MORE FUNCTIONAL WELL, ABLE TO PUT ON OWN NASAL CANNULA AND GET UP TO A CHAIR AND BSC. PT WAS STILL HOSTILE WITH STAFF AT TIMES AND WOULD BECOME COMBATIVE. PT HAD A BM AFTER ADMINISTRATIO OF STOOL SOFTENER. DRESSINGS WERE CHANGED ON BOTH LEGS ANF FEET, APPLIED NEW DRESSING TO L HEEL. VITALS WERE STABLE WITH BP IN THE 140'S SYSTOLIC AND HR 60-70'S. NO PAIN MEDICATIONS WERE GIVEN. PT STATED ABD FELT BETTER AFTER BM. PT IS BECOMING LESS COOPERATIVE WITH CARE AND STAFF. PT HAS CLEAR SPEECH BUT OFTEN MUMBLES AND IS DIFFICULT TO UNDERSTAND. PT DID NOT SLEEP MUCH T/O THE SHIFT. SHE IS UP IN A CHAIR, WILL CONTINUE TO MONITOR UNTIL SHIFT CHANGE.
[2020-02-20 04:51] LABS: Vancomycin, Random 20.5 ug/mL
[2020-02-20 09:45] LABS: Bun/Creatinine Ratio 43.3 (12.0-20.0); Calcium, Blood 9.1 mg/dL (8.5-10.1); Creatinine, Blood 1.2 mg/dL (0.40-1.00); Potassium, Blood 5.4 mmol/L (3.5-5.5)
--- NOTE | 2020-02-20 12:21 | NUR ---
ASSUMED CARE OF PT THIS AM, RECEIVED REPORT FROM ERIN HOLLINS. PT MENTATION LEVEL APPEARS TO BE IMPROVED TODAY, MORE ALERT AND AGITATED WITH LESS PERIODS OF LETHARGY. PT WAS PENDING MRI TODAY UNTIL ABORIGINAL COMMUNITY COUNCIL MEMBER INFORMED THIS RN THAT PT HAS EXISTING SUPERA STENT THAT IS NOT COMPATABLE WITH THE MRI. DR ROBERTS HAS BEEN NOTIFIED OF NEW FINDINGS, STATES INTENT TO PLACE ORDER FOR CT SCAN W/ CONTRAST, GIVES VERBAL ORDER FOR PAIN MEDICATION PRIOR TO IMAGING.
--- NOTE | 2020-02-20 19:27 | NUR ---
SHIFT SUMMARY: PT MORE ALERT TODAY WITH PERIODS OF AGITATION, PULLING LINES AND TUBING, REMOVING OXYGEN, ATTEMPTING TO EXIT BED. PT ALSO WITH LESS FREQUENT EPISODES OF LETHARGY. PT REQUIRING MANY REMINDERS AND REDIRECTION. PT RECEIVED CT SCAN W/CONTRAST TODAY, NO MRI D/T STENT. REPORT GIVEN TO ERIN HOLLINS TO ASSUME CARE OF PT.
[2020-02-20 21:52] LABS: Vancomycin, Random 14.7 ug/mL
--- NOTE | 2020-02-21 06:21 | NUR ---
SHIFT SUMMARY PT'S MENTATION IS UNCHANGED FROM PREVIOUS EDGER HAND. PT IS STILL ANGERY AND COMBATIVE WITH STAFF, NOT COOPERATIVE WITH CARE AND YELLS OUT. PT STATED HAVING SIGNIFICANT PAIN IN HER RIGHT FOOT, GAVE PRN FENTANYL AND PT SLEPT UNTIL MORNING WHEN SHE WOKE UP ANGERY AND YELLING. PT WAS ON 5LPM VIA NC WITH O2 SATS IN THE 90'S. PT WOULD CONTINOUSLY PULL OFF NC AND DESAT INTO THE 80'S, MORE SO WHEN LYING SUPINE. VITALS WERE STABLE, BP INCREASE WHEN PT WOULD GET ANGERY AND YELL, OTHERWISE VITALS WERE UNREMARKABLE. ONE ON ONE SITTER IN WITH PT ALL SHIFT. WILL CONTINUE TO MONITOR UNTIL SHIFT CHANGE.
--- NOTE | 2020-02-21 08:50 | NUR ---
ASSUMED CARE BEDSIDE REPORT RECIEVED. PT INITIALLY RESTING QUIETLY UPON ENTERING THE ROOM. PT DIFFICULT TO ROUSE, PT MOANS OUT. AFTER EXITING THE ROOM, APPROX 5 MINS LATER PT IS YELLING OUT CONTINUALLY AND THRASHING AROUND IN THE BED. PT DISCONNECTED ALL LINES/TUBES, UNGOWNED SELF, AND WAS SITTING UP AT THE SIDE OF THE BED. PT IS NOT REDIRECTABLE. PT NOT ANSWERING ANY QUESTIONS AT THAT TIME. WHEN THIS RN AND ACTIVE DIRECTORY ENGINEER ALFONSO ATTEMPTED TO GET PT BACK INTO BED, PT SWINGING AND HITTING AT BOTH RN'S. PT CONTINUES TO BE UNABLE TO BE REDIRECTED. 3L O2 NC PLACED BACK ON PT. VITAL SIGNS STABLE. SANCHEZ IN PLACE WITH YELLOW URINE OUTPUT NOTED. POWERGLIDE TO ERWIN IN PLACE, SALINE LOCKED. PT WITH SWELLING AND DRY FLAKING SKIN TO BLE'S NOTED. MULTIPLE TOE AMPUTATIONS TO BOTH FEET NOTED. DR ROBERTS AND DR ROY HAVE SEEN PT THIS AM. WILL CONTINUE TO MONITOR.
[2020-02-21 09:36] LABS: Hematocrit 41.6 % (33.0-51.0); Hemoglobin 11.6 g/dL (11.5-16.0); Mean Corpuscular HGB Conc 27.9 g/dL (31.5-36.5); Mean Corpuscular Volume 97 fL (80-100); Mean Platelet Volume 9.8 fL (9.1-12.4); NRBC ABSOLUTE 0.07 K/mm3 (0.00-0.02); NRBC Auto 0.8 /100 WBC (0.0-0.2); Platelet Count 449 K/mm3 (150-400); RDW Coefficient Variation 17.2 % (11.7-14.2); Red Blood Cell Count 4.29 M/mm3 (3.80-5.20); White Blood Cell Count 8.48 K/mm3 (4.00-11.30)
[2020-02-21 09:38] LABS: Bun/Creatinine Ratio 42.6 (12.0-20.0); Calcium, Blood 9.8 mg/dL (8.5-10.1); Creatinine, Blood 1.15 mg/dL (0.40-1.00); Potassium, Blood 5.8 mmol/L (3.5-5.5)
--- NOTE | 2020-02-21 16:35 | NUR ---
SHIFT SUMMARY NO ACUTE CHANGES THIS SHIFT. PT HAS REMAINED AGITATED THROUGHOUT THE DAY WITH PERIODS OF YELLING OUT. PT IS NOT REDIRECTABLE. PT CONTINUES TO PULL AT LINES/TUBES AND ATTEMPT TO GET OUT OF BED. PT SAT AT BEDSIDE WITH SITTER IN ROOM FOR OVER 2 HOURS THIS AM. VITAL SIGNS HAVE REMAINED STABLE. PT ON ROOM AIR MOST OF THE SHIFT DUE TO CONTINUALLY TAKING NC OFF. PT WITH BREIF PERIODS OF DESATURATION WHILE RESTING. POWERGLIDE REMAINS C/D/I, SALINE LOCKED. SANCHEZ REMAINS IN PLACE WITH DARK YELLOW URINE OUTPUT NOTED. WOUNDS TO BLE'S REMAIN UNCHANGED, DRESSINGS NOT CHANGED DUE TO PT ATTEMPTING TO KICK STAFF WHEN ATTEMPTING DRESSING CHANGES. PT DAUGHTER IN TO VISIT THIS AFTERNOON, UPDATED TO PT STATUS AND PLAN OF CARE. WILL CONTINUE TO MONITOR AND REPORT OFF TO ONCOMING RN.
--- NOTE | 2020-02-21 19:30 | NUR ---
ASSUMED CARE PT CURRENTLY RESTING IN BED; VSS; O2 SATS >93 ON RA; GRUNTING TO STAFF NOT ANSWERING QUESTION; NO DISTRESS NOTED; REMINDED OF SAFETY EDUCATION AND CALL LIGHT SYSTEM; CALL LIGHT IN REACH; BED IN LOWEST POSITION; BED ALARM ON.
--- NOTE | 2020-02-22 05:55 | NUR ---
ASSUMED CARE PT LETHARGIC MUCH OF SHIFT; MOANS AND CALLS OUT; WHEN ASKED WHAT IS WRONG SHE DOES NOT ANSWER; VSS; PT HAD APNIC EPISODE WHEN SHE HAD HER O2LINE PULLED OFF W/ SATS IN THE 70'S; RECOVERED WITH O2 TURNED UP TO 10L FOR A COUPLE OF MINUTES; DARBY CUMMINGS NP NOTIFIED; NEW ORDER FOR ABG ENTERED; O2 SATS >93 ON 4L NC LONG PT LEAVES NC IN PLACE; POWERGLIDE DID NOT PULL FOR AM LABS, LAB NOTIFIED; WOUND CARE PROVIED TO BLE; INTEGRITY AND MEPILEX USED, PROVIDED COMPLETE LINEN CHANGE AFTER WOUND CARE; PT CURRENTLY RESTING IN BED; NO DISTRESS NOTED; CALL LIGHT IN REACH; BED IN LOWEST POSITION; WILL CONTINUE TO MONITOR CLOSELY UNTIL HAND OFF TO DAY SHIFT RN.
[2020-02-22 07:28] LABS: Hematocrit 35.3 % (33.0-51.0); Hemoglobin 9.6 g/dL (11.5-16.0); Mean Corpuscular HGB 26.5 pg (26.0-34.0); Mean Corpuscular HGB Conc 27.2 g/dL (31.5-36.5); Mean Corpuscular Volume 98 fL (80-100); Mean Platelet Volume 9.7 fL (9.1-12.4); NRBC ABSOLUTE 0.09 K/mm3 (0.00-0.02); Platelet Count 479 K/mm3 (150-400); RDW Coefficient Variation 17.3 % (11.7-14.2); RDW Standard Deviation 60.7 fL (35.1-46.3); Red Blood Cell Count 3.62 M/mm3 (3.80-5.20); White Blood Cell Count 9.44 K/mm3 (4.00-11.30)
--- NOTE | 2020-02-22 07:45 | NUR ---
Pt is sleepy, but awakens to speech. Lethargic, but able to awaken long enough to respond to questions and to drink some apple juice and milk while sitting up. Noted elevated blood pressure; will administer scheduled antihypertensives this morning.
[2020-02-22 07:51] LABS: Vancomycin, Random 21.6 ug/mL
[2020-02-22 07:55] LABS: Bun/Creatinine Ratio 42.3 (12.0-20.0); Calcium, Blood 9.1 mg/dL (8.5-10.1); Creatinine, Blood 1.23 mg/dL (0.40-1.00)
[2020-02-22 07:57] LABS: Potassium, Blood 6.3 mmol/L (3.5-5.5)
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
[2020-02-22 12:23] LABS: Bun/Creatinine Ratio 44.5 (12.0-20.0); Calcium, Blood 9.3 mg/dL (8.5-10.1); Creatinine, Blood 1.19 mg/dL (0.40-1.00); Potassium, Blood 6.2 mmol/L (3.5-5.5)
--- NOTE | 2020-02-22 15:16 | NUR ---
Luh has been sitting on the side of the bed, grunting, occasionally talking, but always confused. She pulls off her oxygen tubing, telemetry wires, continuous pulse oxymetry at random. She has been sitting on the side of the bed with a TIE SAWYER constantly supervising her for safety for two hours. She seems to be more comfortable sitting on the side of the bed.
--- NOTE | 2020-02-22 15:54 | NUR ---
Dr. Mesa here to see the patient. She is still sitting on the side of the bed. Able to get the pt's vital signs and reapply the monitor car operator to her without resistance. She has been intermittently shouting profanities. Contantly grunting and stated that she was in pain. STates her "april cat" is huring. NOted the mñuoz catheter stat lock had been removed. Skin was prepped and stat lock reapplied to prevent pulling. She was asked if she would like to lie down on the bed again, and she would not allow staff to assist her back to lying position in the bed.
[2020-02-22 16:43] LABS: Bun/Creatinine Ratio 39.1 (12.0-20.0); Calcium, Blood 9.5 mg/dL (8.5-10.1); Creatinine, Blood 1.38 mg/dL (0.40-1.00); Potassium, Blood 5.8 mmol/L (3.5-5.5)
--- NOTE | 2020-02-22 17:27 | NUR ---
1630 The pt was agreeable to lying down in bed, which she did requiring 2 staff members assisting her. She was given hygiene care, oral medications, and then repositioned for her comfort and to help with her work of breathing. AT this time she has been lying supine, quietly, with occasional grunting, keeping her telemetry and oxygen on, with her eyes closed and no verbal outbursts.
--- NOTE | 2020-02-22 18:28 | NUR ---
Review of pt needs with physician and nursing. Plan is to meet with family tomorrow and review prognosis and goal of care. Sleeping off and on yells out. pt has occular swelling, discolration to face and cheeks red and flushed but gets dusky. mouth dry. Patients chest a bit sunken. Hypo ventilation noted at time with prolonged expriritory phase. So huffing noted and grimacing when at sleep. Abdomen large and slightly distended. lower extrmeities multiple wounds and pale dry tissue with reddened areas. Checked sats they were 93% pt hypertensive. Pt someulent unable track conversation repetative motions. When awake aggitated yells out profanities and increased aggitated movments and repenativeness them quickly back to somulent. Awaiting repeat assessment from psychiatrist. Contact patients daughter to get history of past few months. She relays pt sleeps most of the time has periods of alertness and appetite. She is have more confussion now and lack of appetite she had a fall and hurt her shoulder badly and has since alsmost cesased walking. Daughter states more inconinence and pain. She is living with a roommate who has since asked her to move out. Daughter states she thinks she needs placement. She is from her but they are still close he was going to let her move in but not sure he can handle her care. Made plan iwht daughter to have her and her father come in tomorrow morning and make a plan of care for her mother and offer assistnce. Will discuss code status, prognsosis and quality of life. reivew of dianositics and past admissions. Will review with physicians, decreased renal function chronic delirium and debilty may be bringing on dementia. Pt high risk for sudden event.KPS score 20% at this time..
--- NOTE | 2020-02-22 19:08 | NUR ---
PT ATTEMPTED TO INDEPENDENTLY CRAWL OUT OF BED At approx 1840, bed alarm went off. Pt was noted to be laying in prone position crawling out of the side of the bed to kneeling position on side of bed. Knelt on side of bed leaning onto mattress until staff was able to assist patient into sitting position and transfer BTB using ceiling lift. No injuries noted during xferring out or in bed and pt was fairly directable while transitioning. VS completed, no new c/o pain/discomfort, denies need for toileting or ADL's.
--- NOTE | 2020-02-22 19:16 | NUR ---
Babs was assisted back to bed with use of the ceiling lift and green sitting sling. She smiled, and called out "WEEEE!" during the transfer. She is cooperative, and said, "You guys are wonderful" after she was back in the bed. She appears calm and comfortable. Vital signs are taken and documented. No new skin abrasions, bruising nor other signs of recent injury. She has no new complaints of pain. Bedside report was given to Senia Zeng RN. Bed alarm reset after pt was back in the bed. Declines any food or drink at this time.
--- NOTE | 2020-02-22 19:58 | NUR ---
ASSUMED CARE RECEIVED REPORT BEDSIDE FROM ARELY RN; PT ALERT AND CALM IN BED; VSS; O2 SATS >93 ON 4L NC; SANCHEZ IN PLACE; NO DISTRESS NOTED; CALL LIGHT IN REACH; BED IN LOWEST POSITION; BED ALARM ON.
[2020-02-23 04:15] LABS: Vancomycin, Random 17.2 ug/mL
--- NOTE | 2020-02-23 06:04 | NUR ---
SHIFT SUMMARY PT ALERT; MOANS AND CALLS OUT; CURSING AT STAFF AT TIMES; SAT UP IN RECLINER THIS SHIFT, SLEEPING ON AND OFF; 1 TO 1 SITTER BY AID; PO 2100 MEDS W/ NO ISSUE; VSS; WAP NOTED ON TELE; O2 SATS >93 ON 3L NC; SANCHEZ PATENT & DRAINING CLEAR YELLOW URINE; CALL LIGHT IN REACH; TAB ALARM ON; WILL CONTINUE TO MONITOR CLOSELY UNTIL HAND OFF TO DAY SHIFT RN.
[2020-02-23 06:33] LABS: Bun/Creatinine Ratio 39.7 (12.0-20.0); Calcium, Blood 9.2 mg/dL (8.5-10.1); Creatinine, Blood 1.36 mg/dL (0.40-1.00); Potassium, Blood 5.5 mmol/L (3.5-5.5)
--- NOTE | 2020-02-23 09:09 | NUR ---
Attempted to visit/assess pt. She is asleep, moaning, groaning with each exhale. LITERATURE PROFESSOR's report she has been up all night and is finally resting/sleeping. I did not wake pt. Full report on current status obtained from pt's bedside RN and review of EMR. Pt has had frequent hospital admissions since March of 2018 when she was admitted shortly after having a 2V CABG and complications with recovery from that. I saw pt at that time and she has been seen by Palliative Care during most of her acute admissions here. Pt has had huge decline in quality of life, cognition and level of ADLs or independent function since I met her nearly two years ago. She has multiple comorbidities of CAD, CHF, DM, HTN, PVD, chronic non healing wounds and now mentation changes/encephalopathy. KPS prognostication score is 20% on this admission.
--- NOTE | 2020-02-23 09:42 | NUR ---
0930 Pt is lying supine in bed, HOB elevated approx 30 degrees, eyes closed, respirations even and unlabored. lights are dim, and she appears to be calm and comfortable. Bed alarm is on for safety.
--- NOTE | 2020-02-23 10:31 | NUR ---
Elbert arrived just after 10am; call to Kym Rios for to join family meeting with physician andpalliative care, discharge planning. Elbert came to the pt's room at approx 10:30, appeared tearful, said that he wanted to talk to the pt when I was done with my assessment. I asked if he wanted to bring a chair closer to her bedside, and he said no. He sait in chair in corner away from the pt. Pt opened her eyes when she saw him, and he asked how she was doing she yelled, "F-- YOU, Elbert!" He said that he had just come out of a meeting and wanted to talk to her. The pt yelled profanities at him again, and he stormed out, saying that if that was the case, that "they are going to put you to sleep, Babs". She looked at me and asked, "Really?" I told her no, we would not be putting her to sleep. She yelled out, "Come back, then" to Elbert but he was already out of the room and did not reappear. She closed her eyes and did not talk again until requested to sit on the side of the bed. She is dangling on side of the bed now. Complained that her legs are hurting really bad, but my attempts to assist her with repositioning or pain relief are met with anger and resistance from the pt.
--- NOTE | 2020-02-23 11:00 | NUR ---
SUMMARY of Family Conference - Meeting held as planned with brandon (surrogate decision maker/nok),Chacha, ex-, Kym Boswell from and Dr Delaney. We met in conference room, away from pt's room. Pt has continued to have episodes of agitation and somnolence/confusion intermittently. We reviewed pt's current status and challenges with multiple comorbidites and limiting factors for pursuing aggressive tx. Daughter's questions answered re: options for care. We discussed importance of identifying goals for care and asked Chacha to consider pt's current code status and ability to follow thru with aftercare or even compliance with hospital care in considering plan of care desired. Chacha and pt's ex- very upset. Elbert left mid-meeting to visit Babs. Chacha stayed long enough to complete the conversation and ask all questions desired. was able to return to the conference and answer specific medical questions Chacha had. Chacha was tearful and upset, appropriately expressing feelings and the weight of the burden she is feeling for making decisions. She is clear that her mom has been noncompliant and would leave AMA if she was well enough to. I asked Chacha to consider her mom's actions, as well as her statements of "I want to be healthy" and "I want everything done" when making decisions. Both and I assured her we are not asking for any decision making today but needed to educate on current concerns and options and to start an advanced care planning conversation. Code status discussed in depth. Booklet, Hard Choices for [place] People given to Chacha to review to help with articulating her questions and clarifying what benefit vs [place] of life saving interventions might look like for her mom. Contact [facility] given for Chacha to contact us again if she would like to talk further. We will remain available for s/s management and support to pt and family. Case conferenced after our meeting with and pt's RN.
--- NOTE | 2020-02-23 14:11 | NUR ---
1305 wound care and dressing changes to BLE various wounds, ulcers completed. The pt is somnulent, arouses minimally to pain and speech.
--- NOTE | 2020-02-23 14:26 | NUR ---
Pt is wide awake, sitting on side of bed, yelling, NO, Chacha, NO to her daughter Chacha who is standing in front of the pt at the bedside. PT is crying, and daughter Chacha asked to have a private conversation with her mother. Door was closed at her request.
--- NOTE | 2020-02-23 15:41 | NUR ---
Luh is sitting up in a chair, chair alarm is on. Vital signs taken. She appears a bit sleepy, but refuses to move from the chair. She had taken her oxygen off, and spo2 90% on room air. Replaced the nasal cannula with o2 delivery at 2 l/min. Telemetry patches also noted unattached; these were replaced with new patches to her chest. She is calm, answering some questions but making no spontaneous conversation with me.
--- NOTE | 2020-02-23 17:02 | NUR ---
late note : @ 1310 Wound care of the ulcers, scabs, eschar and abrasions of the lower extremities was done as documented in the wound intervention. The pt was lying in bed, quiet, and very sleepy during this. She only awoke slightly during the dressing care. Afterwards, her legs were elevated on pillows and heels floated above the mattress.
--- NOTE | 2020-02-23 17:04 | NUR ---
Babs remains sitting up in chair, appears to be tolerating it well but is sleepy. She is keeping her oxygen nasal cannula in and her surveillance monitor on. Chair alarm is on. Respirations appear unlabored. No grunting, only occasional soft vocalization. She has been frequently offered food and drink. The BUTCHER OR SMALLGOODS MAKER told me earlier that she really appeared to like popsicles today. Ate late breakfast around 11 am with hearty appetite.
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
--- NOTE | 2020-02-23 19:39 | NUR ---
CARE ASSUMPTION PT A&O TO SELF & LOCATION. WHEN ASKING PT THE DATE PT STATES "IN BED." WHEN REASKING PT WHAT THE DATE IS, PT STATES "FUCK YOU! I ALREADY TOLD YOU." PT THEN HOLDING MIDDLE FINGER UP & CURSING "GOD DAMNIT." PT SITTING UP AT EDGE OF BED AFTER INITIALLY SETTING BED ALARM OFF, W/ BOTH PT LEGS FOUND HALF WAY
--- NOTE | 2020-02-23 19:45 | NUR ---
CARE ASSUMPTION PT SITTING UP AT EDGE OF BED AFTER INITIALLY SETTING BED ALARM OFF W/ BOTH PT LEGS FOUND HALF WAY OUT OF BED. PT THEN ASSISTED UP INTO SITTING POSITION & ENCOURAGED TO REFRAIN FROM GETTING UP W/OUT ASSISTANCE. PT A&O TO SELF & LOCATION. WHEN ASKING PT THE DATE PT STATES "IN BED." WHEN REASKING PT WHAT THE DATE IS, PT STATES "FUCK YOU! I ALREADY TOLD YOU." PT THEN HOLDING MIDDLE FINGER UP & CURSING "GOD AYAANT." PT C/O PAIN REPORTING LOCATION "WHERE I FELL YESTERDAY." PT THEN REPORTS PAIN IN HER R LEG. BANDAGES NOTED TO BLE. DRESSINGS TO BE REPLACED D/T PT CONTINUALLY MOVING ABOUT & BANDAGES SEMI INTACT. PT AGREEABLE TO VS ASSESSMENT, THEN ACTING CALMLY & NO LONGER CURSING OR BEING ANGRY. VSS. SPO2 > 92 ON RA. MONITOR SHOWING NSR, HR 60's. SANCHEZ CATH PATENT & DRAINING. PT STATING "I WANT TO BRUSH MY TEETH!" WHEN OFFERING PT A TOOTH BRUSH PT THEN ANGRY AGAIN & YELLING "NO! I DON'T WANT THAT!" BED ALARM TO REMAIN ON. WILL CONTINUE TO MONITOR.
--- NOTE | 2020-02-23 20:03 | NUR ---
CBG REFUSAL PT REFUSING CBG CHECK, BECOMING ANGRY & YELLING "NO" & "FUCK YOU." WILL ATTEMPT AT LATER TIME.
--- NOTE | 2020-02-23 21:39 | NUR ---
UPDATE PT YELLING OUT. TAB ALARM SET OFF & PT FOUND TO BE STANDING AT BEDSIDE HOLDING ONTO FURNITURE IN . PT VOLUNTARILY SAT BACK DOWN UPON STAFF ENTERING . PT STATING "HELP ME" OVER & OVER W/ NO PT EXPLANATION OF WHAT SHE NEEDS HELP W/. WHEN ASKING PT TO DESCRIBE WHAT SHE NEEDS SHE STATES "I DON'T KNOW. YOU DESCRIBE IT FOR ME." PT DENYING NEED FOR MULTIPLE OPTIONS ASKED TO HER W/ NO GAIN IN KNOWLEDGE OF WHAT PT NEEDS. PT CONTINUING TO REPEAT "HELP ME!" ANGRILY YELLING AT STAFF. PT REFUSES TO LAY DOWN & GET SOME REST. TAB ALARM REPLACED ON PT W/ PT REMAINING SITTING UP AT BEDSIDE. PT THEN STATING "WE'RE GOING TO DO THIS ALL NIGHT." STAFF EXITED . PT NOW CALLING OUT "MOMMY!" LOUDLY.
--- NOTE | 2020-02-23 23:59 | NUR ---
AGITATION / ATTEMPT TO HIT STAFF PT W/ CONTINUED AGITATION & PROFANITIES. PT MEDICATED W/ PRN ZYPREXA PER EMAR. PT REFUSING TO LAY DOWN T/O SHIFT DESPITE PT FALLING ASLEEP SITTING UP MULTIPLE TIMES FOR BRIEF SPURTS. PT FINALLY AGREEABLE TO LAY DOWN W/ THIS NURSE INSTRUCTING PT TO LEAN INTO L SHOULDER, AND NURSE WOULD ASSIST W/ LIFTING LEGS ONTO THE BED. BEFORE TOUCHING PT LEGS TO ASSIST W/ REPOSITIONING THIS NURSE ASKED PT WHERE SHE COULD BE TOUCHED W/ OUT CAUSING PAIN TO ASSIST W/ LIFTING LEGS ONTO BED. PT SAID "JUST GRAB WHEREVER YOU HAVE TO." THIS RN THEN CAREFULLY PLACED HANDS BEHIND BILAT ANKLES & INSTRUCTED PT TO LEAN ONTO SHOULDER & LAY DOWN. PT INSTANTLY ENRAGED AND LUNGED AT NURSE W/ R ARM SWINGING AT THIS NURSE. THIS NURSE LET GO OF ANKLES & QUICKLY PULLED AWAY WITHOUT BEING HIT. PT THEN YELLED "YOU SNEAKY SON OF A BITCH!" THIS RN ASSURED PT OF SHARING INTENTION OF PLAN ENTIRE TIME W/ PT INITIAL AGREEANCE. PT CONTINUING TO CURSE AT NURSE. PT LEFT SITTING UP AT EDGE OF BED W/ TAB ALARM IN PLACE.
[2020-02-24 04:10] LABS: Vancomycin, Random 12.6 ug/mL
--- NOTE | 2020-02-24 06:19 | NUR ---
SHIFT SUMMARY PT A&O TO SELF & LOCATION. PT PHYSICALLY & VERBALLY ABUSIVE TO STAFF T/O SHIFT, SWEARING AT STAFF W/ NEARLY EVERY PT ENCOUNTER & PT ATTEMPTING TO HIT STAFF MULTIPLE TIMES W/ PT MANAGING TO SLAP THE TOP OF PLASTICS DESIGN ENGINEER's HEAD WHILE PLASTICS DESIGN ENGINEER ATTEMPTING TO EMPTY SANCHEZ CATHETER BAG & SLAPPING PLASTICS DESIGN ENGINEER HAND DURING ANOTHER ENCOUNTER. IRIS COMPLETED. PRN ZYPREXA GIVEN PER EMAR W/ LITTLE TO NO PT EFFECT. PT AWAKE T/O SHIFT, SITTING UP AT EDGE OF BED, REFUSING TO LAY DOWN UNTIL APPROX 0600 THIS AM. PT NOW LAYING DOWN & SLEEPING FOR THE FIRST TIME THIS SHIFT. PT THEN NOTED TO HAVE SELF REMOVED SANCHEZ CATHETER W/ BALOON STILL FULLING INFLATED. PT VSS. MONITOR SHOWS SR, HR 60's-70's. SPO2 > 90% ON RA. WOUND CARE DONE TO BLE WOUNDS. PT IN BED W/ TAB ALARM & BED ALARM ON. WILL CONTINUE TO MONITOR & PROVIDE CARE UNITL REPORT OFF TO DAY SHIFT RN.
[2020-02-24 06:39] LABS: Bun/Creatinine Ratio 39.8 (12.0-20.0); Creatinine, Blood 1.23 mg/dL (0.40-1.00); Potassium, Blood 5.1 mmol/L (3.5-5.5)
--- NOTE | 2020-02-24 10:15 | NUR ---
PATIENT IS ORIENTED TO SELF, UNSURE OF LOCATION, NOT ABLE TO STATE WHY SHE IS IN THE HOSPITAL. PATIENT IS VERBALLY AGRESSIVE AT TIMES, YELLS PROFANITY AT STAFF. IS REDIRECTABLE AT TIMES WHEN TOLD SHE IS "SPEAKING RUDELY" AND "NEEDS TO BE POLITE TO STAFF".
--- NOTE | 2020-02-24 11:23 | NUR ---
PATIENT BECAME AGITATED STATING THAT SHE NEEDED TO GO TO THE BATHROOM. PATIENT BEGAN USING PROFANITY AT STAFF, RAISED HANDS TO HIT AGILE SCRUM MASTER, SLAPPED THIS RNs HANDS, RAISED FISTS AND TRIED TO HIT CHARGE NURSE. PATIENT ENCOURAGED TO USE WORDS AND FIRM BOUNDARIES GIVEN REGARDING THE USE OF PHYSICAL VIOLENCE AGAINST STAFF. PATIENT CONTINUED TO USE PROFANITY AND VIOLENT LANGUAGE INCLUDING, "FUCK YOU" AND "I'M GOING TO KILL YOU", BUT DID NOT AGAIN TRY TO HIT STAFF AT THIS TIME.
--- NOTE | 2020-02-24 16:16 | NUR ---
PATIENT REFUSED VITALS AND BLOOD SUGAR CHECK.
--- NOTE | 2020-02-24 17:48 | NUR ---
REPORT RECIEVED FROM PATRICIA DANIEL RN.
--- NOTE | 2020-02-24 17:52 | NUR ---
REPORT GIVEN TO MARIA DE JESUS KHAN ON [facility].
--- NOTE | 2020-02-25 04:29 | NUR ---
SHIFT SUMMARY- PT. ALERT TO SELF WITH INTERMITTENT CONFUSION AND AGITATION LAST NIGHT. PT. WOKE UP SEVERAL TIMES DURING THE NIGHT YELLING AND ANXIOUS. ALSO NOTED PT. TO BE VERY LOOPY. SCHEDULED MEDS TAKEN W/O DIFFICULTY. PT. C/O BLE PAIN, MEDICATED PER EMAR WITH MINIMAL EFFECT. SLEPT ON/OFF T/O THE SHIFT, ASSISTED MULTIPLE TIMES TO BSC W/WALKER, PT. WEAK AND UNSTEADY. VSS, NO ACUTE DISTRESS NOTED. CALL LIGHT WITHIN REACH, SIDE RAILS UPX2, AND BED ALARM ON FOR SAFETY. WILL CONT TO MONITOR.
[2020-02-25 05:56] LABS: Vancomycin, Random 17.7 ug/mL
--- NOTE | 2020-02-25 10:39 | NUR ---
AM MEDS HELD BASED ON CJ PATIENT IS LETHARGIC THIS MORNING. AM MEDS HELD D/T INABILITY TO SWALLOW SAFELY.
--- NOTE | 2020-02-25 17:31 | NUR ---
Shift Summary A/Ox3, pretty lethargic this morning but patient is more awake and easily wakens to verbal stimuli. Follow directions. AM meds given. Wound care to RLE completed without the need for IV pain medication. Slept most of the day. Interactions with patient has been pleasant, minimal outbursts of agitation but no foul language used toward this RN. Appetite is great. Up in chair x 1 assist. No other acute changes, will continue to monitor.
--- NOTE | 2020-02-25 18:14 | NUR ---
KEEPING SEROQUEL AT 200 BASED ON PATIENT'S LETHARGY THIS AM, RECEIVED T.O FROM DR. MONTALVO TO CHANGE DOSE FROM 250 TO 200 MG.
--- NOTE | 2020-02-26 04:41 | NUR ---
SHIFT SUMMARY- PT. APPEARED ANXIOUS W/ELEVATED BP AT THE START OF THE SHIFT. HAD RECENTLY BEEN UP TO THE BATHROOM. SATS IN THE HIGH 80'S, PT. ASSISTED BACK TO BED AND 2L OF O2 NC PLACED ON PT. WITH GOOD EFFECT. LATER DURING THE EVENING PT. LETHARGIC, BUT ABLE TO COMMUNICATE APPROPRIATELY. RECHECK OF VITALS WNL. ASLEEP MOST OF THE NIGHT, NO APPARENT DISTRESS NOTED. MEDICATED 2X FOR PAIN WITH GOOD EFFECT. PT. PLEASANT AND CALM THIS SHIFT CALLED APPROPRIATELY AND WAS ABLE TO MAKE NEEDS KNOWN. CALL LIGHT WITHIN REACH AND SIDE RAILS UPX2. WILL CONT TO MONITOR.
[2020-02-26 05:52] LABS: Vancomycin, Random 21.1 ug/mL
[2020-02-26 08:33] LABS: Bun/Creatinine Ratio 32.5 (12.0-20.0); Calcium, Blood 8.3 mg/dL (8.5-10.1); Creatinine, Blood 1.51 mg/dL (0.40-1.00); Potassium, Blood 5.5 mmol/L (3.5-5.5)
--- NOTE | 2020-02-26 10:30 | NUR ---
Review of pt with staff, increased somulence and decreased intae and output. suggest neurontin to tid. and some possible iv nutrition. Will try with family again and review her prognosis.
--- NOTE | 2020-02-26 12:39 | NUR ---
Gabapentin TID Discussed with Dr. Delaney about Palliative Care RN, Daly's recommendations to stagger gabapentin in three doses instead of two. Also discussed IV nutrition and fluctuating kidney function. Received T.O. to change gabapentin from BID to TID. No additional order.
--- NOTE | 2020-02-26 18:13 | NUR ---
Shift Summary A/Ox3, patient was pretty somulent through breakfast and lunch but awoken after noon asking for snacks and drinks. Daughter and room mate/spouse visited while patient was awake. Palliative Care Daly spoke with daughter to clarify comfort vs palliative vs hospice. Up in chair for dinner. Tolerating PO intake very well when awake. Dressing to RLE changed. Will report to oncoming RN.
--- NOTE | 2020-02-26 19:54 | NUR ---
Met wit patients daughter she had questions about level of care. Mostly encouraged her to let out her stress. We reviewd her mother potential needs and the medication changes we were working on. pt has been someulent but his afternoon more alert and cooperative. Advised daughter we have been following for symptom managment. Advised that we need to have realistic conversations on mother prognosis so she does not suffer and get the level of care she needs. She states her room mate will take her back and they will be caregivers. suggested home health not only for wound care but for pain manamgent and supportive care such as bath aid. Suggested that if she cant sustain at home have hospice come to home and consult. Reponded will to choices will fallow up again.
--- NOTE | 2020-02-27 04:14 | NUR ---
SHIFT SUMMARY- PT. HAD NO ACUTE EVENTS OVERNIGHT. LETHARGIC LAST NIGHT, ASLEEP MOST OF THE NIGHT. NO APPARENT DISTRESS NOTED. UP X1 TO THE BSC W/ASSISTANCE, TOLERATED WELL. NO OTHER NEEDS THIS SHIFT. VSS. CALL LIGHT WITHIN REACH AND SIDE RAILS UPX.2 WILL CONT TO MONITOR.
[2020-02-27 06:11] LABS: Vancomycin, Random 17.4 ug/mL
--- NOTE | 2020-02-27 15:05 | NUR ---
Spoke with Dr Delaney prior to visit and discussed case. Pt and family agreeable for further conversations regarding advanced care planning. Received call from Bedside RN reporting daughter Mariela has arrived. Pt resting in bed upon arrival. Daughter Chacha and Pt's ex present during visit. Pt almost immdiately starts to shut down and closes her eyes. Pt appears to be sleeping during visit. Engaged in therapeutic discussion regarding disease process. Educated on trajectory of disease and the importance of planning for the future and disease progresses. Encourage family to have routine conversations with PCP to develop multiple plans as disease process takes its coarse. Ex appears to be in denial as evidenced by his statements of "she just has little things wrong with her" and "we plan to address these issues so she can live to be 89". Discussed the importance of completing an advanced directive with Pt. Educated on each scenario and each section to complete. Pt remains with her eyes closed. Family reports no concerns at this time. Spoke with Bedside ERIN Patel and discussed case. Palliative Care will remain available.
--- NOTE | 2020-02-27 18:46 | NUR ---
SHIFT SUMMARY PT SLEEPING AT START OF SHIFT, BUT WOKE FOR AM CARE. PT ASSISTED TO CHAIR AT BS FOR BREAKFAST. PT MORE AWAKE TODAY, THAN PREVIOUS SHIFTS. DR ROBERTS IN TO SEE PT THIS AM. PT TO HAVE ONE MORE DAY OF IV ABX TX AND THEN CAN D/C. PT WITH WOUNDS TO BLE'S AND FEET. 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 PT IS ALSO VERY EDEMATOUS AND APPEARS TO BE SWELLING MORE AT THE END OF DAY THAN THIS AM. PT HAS HAD MINIMAL URINE OUTPUT, BUT BLADDER SCAN SHOWED ONLY 60cc. SKIN IS VERY TIGHT WITH SCATTERED HEAVY BRUISING EVERYWHERE. PER NOC SHIFT, SEROQUEL HELD LAST 2 NIGHTS D/T SLEEPINESS AND LETHARGY. PALLIATIVE CARE HERE TODAY TO TALK WITH FAMILY AND PT TO DISCUSS PLAN OF CARE. FAMILY IN DENIAL OF PT'S STATUS AND OVERALL DECLINE. PT ALSO REFUSING SNF TO PRESENT. CARE MANAGERS WORKING ON SAFE D/C PLAN. PT RESTING QUIETLY AT THIS TIME. CALL LT IN REACH.
--- NOTE | 2020-02-28 04:12 | NUR ---
SHIFT SUMMARY ALERT, ABLE TO MAKE NEEDS KNOWN. COOPERATIVE WITH CARE. ANSWERS QUESTIONS APPROPRIATELY. NO C/O PAIN/DISCOMFORT. DID HOWEVER STATE THAT SHE WAS HAVING SOME NAUSEA; MEDICATED PER EMAR. APPEARED TO REST MUCH OF THE NIGHT. WILL CHECK ATTENDS; BLADDER SCAN IF NEEDED. RECIEVED IN REPORT MINIMAL OUTPUT. NO OTHER ACUTE CHANGES AT THIS TIME. BED REMAINED IN LOWEST POSITION; ALARM ON. CALL LIGHT AND BELONGINGS WITHIN REACH. WCTM. REPORT TO ONCOMING RN.
--- NOTE | 2020-02-28 17:43 | NUR ---
Received call from Bedside RN Amanda reporting Pt is showing more decline today. Arrived to room with Pt unresponsive and significant secretions noted. Ex present and leaves room. Dr Delaney and Dr Monroy arrived. Called and spoke with Pt's daughter Suly and reported change in condition. Inquired about escalating care. Suly reports she is on her way in and not ready to make decision. [employer] WORKER called and shortly after code called. Assisted with chest compressions throughout code. Daughter Suly arrives. Attempted therapeutic conversation with daughter suly becoming more emotionally distraught. Dr Monroy comes to discuss with daughter further regarding prognosis. Ex emotionaly distraught and starts blaming this RN for Pt's condition and states "she has been like this since you talked with her yesterday", "you scaredd her", "this is your fault". Ex requests for this RN to leave and leave daughter and Pt alone. Ended visit and discussed situation with Music Orchestratorparth Donato. Code team still working on Pt at the time this RN ended visit. Palliative Care will remain available.
--- NOTE | 2020-02-28 18:32 | NUR ---
PT VERY SLEEPY AND LETHARGIC AT START OF SHIFT. VSS, SEE CHART. PT LATER WOULD BECOME RESPONSIVE TO STERNAL RUB AND NOXIOUS STIMULI, BY GRUNTING OR TRYING TO OPEN EYES. DR ROBERTS HERE OFF AND ON ALL DAY TO CHK ON PT. PT/OT ALSO HERE TO ATTEMPT TO WORK WITH PT; UNSUCCESSFUL PT REMAINED DROWSY. PT REPOSITIONED THUR OUT THE DAY, CHK'D FOR INCONTINENCE, BUT ATTENDS REMAINED DRY. DR ROBERTS REQUESTED DRSG'S TO BLE REMOVED TO ASSESS DIABETIC FOOT ULCERS. KERLEX AND ALGINATE REMOVED WITH SKIN INTEGRITY. NEW ALGINATE AND KERLEX PLACED. AM MEDS HELD FOR SEDATION, PT UNABLE TO TAKE IN PO SAFELY. IV LASIX ORDERED AND ADMINISTERED PT REMAINED EDEMATOUS. PT ONLY HAD ONE VERY SM SPOT OF DRK URINE ON ONE ATTENDS FOR OUTPUT TODAY. DR ROBERTS NOTIFIED AND BLADDER SCAN DONE SHOWING 6cc. VS REMAINED STABLE THRU OUT THE DAY, BUT LATER THIS EVENING PT SHOWING A DECLINE IN RESPONSIVENESS AND RESPIRATIONS. DR ROBERTS NOTIFIED AGAIN WELL PALLIATIVE CARE. DR ROBERTS AND DR ROY TO TO ASSESS PT. RR CALLED AND THEN CODE BLUE. PT'S DAUGHTER ARRIVING. CODE CONTINUED FOR MORE THAN 25 MINS.
--- NOTE | 2020-02-28 18:41 | NUR ---
Spiritual care note: I responded to code blue. Stayed with ex-, Elbert. He was sullen and withdrawn. Dtr, Mariela arrived. she began screaming that she did not want her father "anywhere near me!" She paced, yelled and cried throughout code. Physician's met with Mariela, and she agreed to stop code after @ 25 minutes of CPR. I informed Elbert of Babs's passing and he immediately left. I stayed with Mariela for quite awhile, answering questions and listening to stories. She blames her father for Babs's drug use and poor life choices. Mariela was alternating between hysterical crying, anger, and solemness. [facility]. I provided calm presence, commercial counsel.
--- NOTE | 2020-02-28 20:44 | NUR ---
[facility] PICKED UP PATIENT. PERSONAL BELONGINGS TAKEN.
--- NOTE | 2020-03-03 07:17 | NUR ---
LATE ENTRY; 1600 PT CARE DONE WELL PT REPOSITIONED. ATTEMPTED TO WAKE PT AGAIN; PT DID BRIEFLY OPEN EYES AND ATTEMPTED TO SMILE AT PAT AU. ATTENDS CHANGED FOR COMFORT ONLY. NO URINE OUT PT. 1620 DR ROBERTS NOTIFIED OF NO URINE OUTPUT. TELEPHONE ORDER TO OBTAIN BLADDER SCAN; BLADDER SCAN OBTAINED AND DONE AT [address] ROBERTS NOTIFIED AGAIN OF CHANGE IN PT'S RESPIRATIONS. DR ROBERTS TO DISCUSS WITH DR ROY AND COME TO PT RM. [address] ROY TO PT RM.
== END 2020-02-28 17:33 | DRG 871 ==
LOC: ER 12:12 → PCU 18:36 → ERHOLD 18:36 → ICUE 18:36 → PCU 02-16 15:54 → MEDS 02-24 19:40
PROVIDERS: Emergency Medicine; Family Medicine; Hospitalist; Internal Medicine; Internal Medicine Critical Care Medicine; Nurse Practitioner Acute Care; Pharmacist; ADMIT Internal Medicine
PROC: 3E043XZ Introduction of Vasopressor into Central Vein, Percutaneous Approach (ICD-10-PCS; 2020-02-14)
PROC: 0BH17EZ Insertion of Endotracheal Airway into Trachea, Via Natural or Artificial Opening (ICD-10-PCS; 2020-02-14)
PROC: 5A1935Z Respiratory Ventilation, Less than 24 Consecutive Hours (ICD-10-PCS; 2020-02-14)
PROC: 02HV33Z Insertion of Infusion Device into Superior Vena Cava, Percutaneous Approach (ICD-10-PCS; principal; 2020-02-15)
PROC: 5A12012 Performance of Cardiac Output, Single, Manual (ICD-10-PCS; 2020-02-28)
PROC: 0BH18EZ Insertion of Endotracheal Airway into Trachea, Via Natural or Artificial Opening Endoscopic (ICD-10-PCS; 2020-02-28)
PROC: 04HL33Z Insertion of Infusion Device into Left Femoral Artery, Percutaneous Approach (ICD-10-PCS; 2020-02-28)
DX: A41.02 Sepsis due to Methicillin resistant Staphylococcus aureus (principal); R65.21 Severe sepsis with septic shock; N17.0 Acute kidney failure with tubular necrosis; G92 Toxic encephalopathy; I50.42 Chronic combined systolic (congestive) and diastolic (congestive) heart failure; N39.0 Urinary tract infection, site not specified; I42.9 Cardiomyopathy, unspecified; L02.416 Cutaneous abscess of left lower limb; I13.0 Hypertensive heart and chronic kidney disease with heart failure and stage 1 through stage 4 chronic kidney disease, or unspecified chronic kidney disease; F32.3 Major depressive disorder, single episode, severe with psychotic features; L97.919 Non-pressure chronic ulcer of unspecified part of right lower leg with unspecified severity; L97.929 Non-pressure chronic ulcer of unspecified part of left lower leg with unspecified severity; Z90.13 Acquired absence of bilateral breasts and nipples; Z89.421 Acquired absence of other right toe(s); Z89.422 Acquired absence of other left toe(s); Z79.4 Long term (current) use of insulin; Z20.828 Contact with and (suspected) exposure to other viral communicable diseases; E11.51 Type 2 diabetes mellitus with diabetic peripheral angiopathy without gangrene; Z87.891 Personal history of nicotine dependence; E87.5 Hyperkalemia; I25.10 Atherosclerotic heart disease of native coronary artery without angina pectoris; E03.9 Hypothyroidism, unspecified; R45.1 Restlessness and agitation; E11.65 Type 2 diabetes mellitus with hyperglycemia; E11.649 Type 2 diabetes mellitus with hypoglycemia without coma; N18.9 Chronic kidney disease, unspecified; Z78.1 Physical restraint status; I46.9 Cardiac arrest, cause unspecified; E11.622 Type 2 diabetes mellitus with other skin ulcer
CPT/HCPCS: 0202U; 0241U; 31500; 31720; 36415; 36556; 36600; 51702; 70450; 71045; 73701; 74176; 76882; 80048; 80053; 80202; 81001; 82272; 82803; 82947; 83036; 83605; 83735; 83880; 84100; 84145; 84439; 84443; 84484; 85014; 85018; 85025; 85027; 85379; 85651; 85730; 86140; 87040; 87070; 87077; 87086; 87147; 87186; 87205; 93005; 93010; 93971; 94002; 94003; 94760; 94762; 96365-59; 96366-59; 96367-59; 96368; 96375-59; 96376-59; 99291-25; 99292; A9270; A9270-GY; C1751; C8929; C9113; J0171; J0330; J0610; J0692; J0696; J1644; J1815; J1940; J2250; J2310; J2405; J2543; J2704; J3010; J3370; J7030; J7040; J7050; J7060; J7799; Q9957; Q9967